=== PATIENT | male | born 1940 | race Caucasian/White ===

== ENCOUNTER → 2018-05-17 | Outpatient (CLI) | payer MEDICARE ==
[2018-05-17 14:51] LABS: Anisocytosis Slight; HCT 40.3 % (39.0-53.0); HGB 13.2 gm/dL (13.0-17.5); Hypochromasia Slight; MCH 28.8 pg (25.0-35.0); MCHC 32.8 g/dL (31.0-37.0); Platelet Count 173 k/uL (150-450); RBC 4.59 m/uL (4.30-5.90); RDW 18.3 % (11.5-15.5); WBC 8.9 k/uL (3.8-10.6)
[2018-05-17 14:55] LABS: Appearance,Urine Clear (Clear); Bilirubin,Urine Negative (Negative); Blood,Urine Negative (Negative); Color,Urine Yellow; Glucose,Urine (UA) Negative (Negative); Hyaline Casts,Urine 48 /lpf (0-2); Ketones,Urine Trace (Negative); Leukocyte Esterase,Urine Negative (Negative); Mucus,Urine Many /hpf; Nitrite,Urine Negative (Negative); PH, Urine 5.5 (5.0-8.0); Protein,Urine 1+ (Negative); RBC,Urine <1 /hpf (0-5); Specific Gravity,Urine 1.032 (1.001-1.035); Squamous Epithelial Cell,Urine 2 /hpf (0-4); WBC,Urine 1 /hpf (0-5)
[2018-05-17 15:00] LABS: INR 2.9 (<1.2); Prothrombin Time 26.1 sec (9.0-12.0)
[2018-05-17 15:03] LABS: Albumin 3.7 g/dL (3.5-5.0); Calcium 9.4 mg/dL (8.4-10.2); Potassium 4.8 mmol/L (3.5-5.1); Total Bilirubin 0.3 mg/dL (0.2-1.3); Total Protein 6.3 g/dL (6.3-8.2)
== END | disposition home or self-care (01) ==
LOC: LABPAT 12:20
PROVIDERS: ATTEND Orthopaedic Surgery
DX: Z01.812 Encounter for preprocedural laboratory examination (principal); Z79.01 Long term (current) use of anticoagulants
CPT/HCPCS: 36415; 80053; 81001; 85027; 85610; 85730; 87070

== ENCOUNTER → 2018-05-26 | Day surgery (SDC) | payer MEDICARE ==
[2018-05-13 10:22] VITALS: BMI 31.8
[2018-05-25 06:23] VITALS: BP 146/67; PULSE 64; RESP 16; TEMP 97.2
[2018-05-25 06:42] LABS: Prothrombin Time 18.4 sec (9.0-12.0)
[~2018-05-26] MED LIST: ACETAMINOPHEN TAB 500 MG TAB PO ONE; DEXAMETHASONE SOD PHOSPHATE 10 MG/ML 1 ML VIAL IV ONE; HYDROmorphone 0.5 MG/0.5 ML SYRINGE IVP PRN; LACTATED RINGERS 1,000 ML IV SCH; LIDOCAINE 1% 20 ML VIAL (10MG/ML) FOR IV START INTRADERMA ONE; MELOXICAM 7.5 MG TAB PO ONE; ONDANSETRON 4 MG/2 ML VIAL IVP ONE; ROPIVACAINE 246.25 MG, EPINEPHrine 0.5 MG, KETOROLAC 30 MG, cloNIDine HCL/PF 80 MCG, WA... MISCELLANE ONE; TRANEXAMIC ACID 1,000 MG in SODIUM CHLORIDE 0.9% 50 ML IVPB ONE; ceFAZolin IN SWFI 2 GM/20 ML SYRINGE IVP ONE
== END ==
LOC: 2ORMAIN 05-25 06:02 → UNDOADMIN 05-25 06:02 → EDSTATUS 05-25 07:30 → OR 06:02
PROVIDERS: ATTEND Orthopaedic Surgery
DX: M16.12 Unilateral primary osteoarthritis, left hip (principal); I25.10 Atherosclerotic heart disease of native coronary artery without angina pectoris; I50.9 Heart failure, unspecified; I48.91 Unspecified atrial fibrillation; Z86.718 Personal history of other venous thrombosis and embolism; Z87.891 Personal history of nicotine dependence; I72.9 Aneurysm of unspecified site; Z95.0 Presence of cardiac pacemaker
CPT/HCPCS: 85610; J1100; J2405; 86850; 86900; 86901

== ENCOUNTER 2018-05-31 07:30 | Inpatient (IN) | payer MEDICARE ==
[2018-05-26 14:48] VITALS: BMI 31.6
[~2018-05-31 07:30] MED LIST changes: -DEXAMETHASONE SOD PHOSPHATE 10 MG/ML 1 ML VIAL IV ONE; -LACTATED RINGERS 1,000 ML IV SCH; -LIDOCAINE 1% 20 ML VIAL (10MG/ML) FOR IV START INTRADERMA ONE; +LIDOCAINE 1% 20 ML VIAL (10MG/ML) FOR IV START INTRADERMA PRN; -ROPIVACAINE 246.25 MG, EPINEPHrine 0.5 MG, KETOROLAC 30 MG, cloNIDine HCL/PF 80 MCG, WA... MISCELLANE ONE
[2018-05-31] MEDS: LACTATED RINGERS 1,000 ML IV SCH (08:10)
[2018-05-31 08:27] LABS: INR 1.1 (<1.2); Prothrombin Time 10.9 sec (9.0-12.0)
[2018-05-31] MEDS ORDERED: hydrOXYzine PAMOATE 25 MG CAP PO PRN (09:17)
[2018-05-31] MEDS ORDERED: MAGNESIUM HYDROXIDE 2,400 MG/10 ML CUP PO PRN (09:17)
[2018-05-31] MEDS ORDERED: ONDANSETRON 4 MG/2 ML VIAL IVP PRN (09:17)
[2018-05-31] MEDS ORDERED: HYDROmorphone 0.5 MG/0.5 ML SYRINGE IVP PRN ×3 (09:17)
[2018-05-31] MEDS ORDERED: NALOXONE 0.4 MG/ML 1 ML VIAL IV PRN (09:17)
[2018-05-31] MEDS ORDERED: HYDROcodone/APAP 5-325MG 1 EACH TAB PO PRN (09:17)
[2018-05-31] MEDS ORDERED: DIAZEPAM 5 MG TAB PO PRN ×2 (09:17)
[2018-05-31] MEDS: ROPIVACAINE 246.25 MG, EPINEPHrine 0.5 MG, KETOROLAC 30 MG, cloNIDine HCL/PF 80 MCG, WA... MISCELLANE ONE ×10 (09:48→10:52)
[2018-05-31] MEDS ORDERED: fentaNYL (PF) 50 MCG/ML 2 ML AMP ONE (09:49)
[2018-05-31] MEDS ORDERED: diphenhydrAMINE 50 MG/ML 1 ML VIAL ONE (09:49)
[2018-05-31] MEDS ORDERED: MIDAZOLAM 2 MG/2 ML VIAL ONE (09:49)
[2018-05-31] MEDS ORDERED: ceFAZolin 3,000 MG in SODIUM CHLORIDE 0.9% IRRIGATIO 3,000 ML IRRIGATION ONE (10:25)
--- NOTE | 2018-05-31 11:09 | P.OP ---
Date of Procedure: 05/31/18 Preoperative Diagnosis: Severe osteoarthritis left hip Postoperative Diagnosis: Severe osteoarthritis left hip Procedure(s) Performed: Left total hip arthroplasty with a direct anterior approach Implants: [employer] Polarstem size 4 standard [employer]hew R3, 3 hole acetabular shell, 54 mm [employer] reflection 6.5 mm cancellus screw, 20 mm 2 [employer] R3, XLPE 20 acetabular liner [employer]hew Oxinium femoral head 36 m, +0 All components were press-fit. The articulation is Oxinium on polyethylene. Anesthesia: spinal Surgeon: Nathaniel Kelyl Row Boss Hoeing #1: Melissa Medrano Estimated Blood Loss (ml): 100 Pathology: other (Femoral head) Condition: stable Disposition: PACU Indications for Procedure: After failure of conservative treatment we discussed the surgical and nonsurgical treatment options at length. Patient wishes to proceed with a total hip arthroplasty with a direct anterior approach. Complications specific to this procedure were discussed at length, including but not limited to infection, leg length discrepancy, dislocation, and nerve injury. Patient is aware of all these complications and informed consent was obtained Operative Findings: The operative findings are consistent with severe osteoarthritis of the left hip Description of Procedure: Patient was seen and evaluated in the preoperative area, consent was reviewed, and the surgical site was marked with a skin marker. Patient was then brought to the operating room and given prophylactic antibiotics intravenously. 1 g of Tranexamic acid was also given. A spinal anesthetic was administered by the anesthesia department. The patient was then placed on the [place] table with the bony prominences well-padded. The hip area was then prepped and draped in usual sterile fashion. A universal timeout was then performed, which confirmed the patient's name, surgical site, ALLERGIES, and procedure being performed. Next the incision site was located at 1 cm distal and 1 cm lateral to the anterior superior iliac spine. The skin and subcutaneous tissues were sharply incised. Incision was carefully dissected down to the fascia overlying the tensor fascia nena muscle. This fascia was then incised in line with the incision. Next, using blunt finger dissection, the tensor fascia nena muscle was dissected off its investing fascia. The muscle was then carefully retracted laterally with a cobra retractor over the lateral neck of the femur. Next, the circumflex vessels were identified and cauterized using the AquaMantis device. The anterior hip capsule was then exposed. The capsule was then opened and an inverted T fashion. Cobra retractors were then placed intracapsularly. The proximal femur was then visualized. The femoral neck was then osteotomized appropriate level above the lesser trochanter. Small amount of traction was placed with the [place] table. A small wedge of bone was then removed from the remaining femoral head. Next, using a corkscrew femoral head was easily removed from the acetabulum. On gross visual inspection, the femoral head had complete loss of articular cartilage in multiple periarticular osteophytes. Attention was then turned to the acetabulum. the acetabulum was exposed and any remaining labrum was excised. Sequential reaming of the acetabulum was performed using fluoroscopic guidance. When the appropriate size was reached, a trial was then placed. The position and fit of the trial was checked with fluoroscopy. The trial was then removed. Then, using fluoroscopic guidance, the final implant was impacted at 20 of anteversion and 40 of abduction, and fully seated in the acetabulum. 2 screws were then placed in the acetabulum. Again fluoroscopy was used to check position of the screws. Next, the liner was then impacted, with a 20 elevated liner located in the anterior superior quadrant. Component locking was confirmed. Attention was then directed to the femur. With the aid of the [place] table, the femur was externally rotated to approximately 130, extended, and abducted under the opposite leg. A side hook was then placed under the proximal femur, and the side hook elevator was used to elevate the proximal femur. Retractors were then placed. A capsular release was performed, as well as a release of the conjoined tendon, which afforded excellent visualization of the proximal femur. Next, a box osteotome was used to lateralize the proximal femur. A baggage handling supervisor was then used to locate the femoral canal. Sequential broaching was then performed with appropriate size which afforded excellent fixation in the proximal femur. A trial was then placed with appropriate head and neck, and the hip was gently reduced with the aid of the [place] table. Fluoroscopy was then used to check position of the components, as well as to ensure equal leg lengths. The hip was then gently dislocated and the trials were then removed. Final implants were then impacted and the hip was again reduced. Final fluoroscopic x-rays confirmed that the components were in anatomic position, as well as equal leg lengths. The hip was also taken through range of motion, and found to be stable. The hip was then copiously irrigated with antibiotic solution with pulsatile lavage. The hip was then irrigated with Irrisept solution. The soft tissues were then injected with a ropivacaine solution, which consisted of 246.25 mg of ropivacaine, 0.5 mg of epinephrine, 30 mg of Toradol, 80 g of clonidine, and 48.45 mL of sterile water, for a total of 100 mL of fluid injected. A second dose of 1 g of Tranexamic acid was also given. the fascia was then closed with 2-0 strata fix suture. The subcutaneous tissue was closed with 3-0 Vicryl. The subcuticular tissue was closed with 3-0 strata fix suture. The skin was then closed with Dermabond glue and a sterile silver dressing. The patient was then transferred to the recovery room in stable condition. The operator/assistant foreman YUKO Wellington was required due to the complexity of surgery, and the need for skilled surgical services tech for positioning, draping, exposure, retraction, and closure of the wound.
--- NOTE | 2018-05-31 11:38 | XR ---
Limited left hip HISTORY: Left hip arthroplasty 2 intraoperative C-arm images document the procedure.
--- NOTE | 2018-05-31 12:14 | XR ---
EXAMINATION TYPE: XR Hip Limited LT DATE OF EXAM: 05/31/2018 COMPARISON: NONE HISTORY: 78-year-old male status post hip surgery, assess surgical alignment TECHNIQUE: AP view FINDINGS: Image shows left hip total arthroplasty. Both acetabular cup and femoral short stemmed components of the prosthesis appear well seated without periprosthetic fracture. Alignment grossly anatomic. IMPRESSION: Uncomplicated postoperative appearance left total hip arthroplasty.
[2018-05-31] MEDS: SODIUM CHLORIDE 0.9% 1,000 ML IV SCH (12:25)
--- NOTE | 2018-05-31 12:27 | FL ---
EXAMINATION TYPE: FL guidance operating room DATE OF EXAM: 05/31/2018 FLUOROSCOPY Fluoroscopy time of 35 seconds was used during left hip arthroplasty. 2 image/s document/s the noemy bowles.
[2018-05-31] MEDS: HYDROcodone/APAP 5-325MG 1 EACH TAB PO PRN (16:18)
[2018-05-31] MEDS: CARVEDILOL 12.5 MG TAB PO SCH (17:44)
[2018-05-31] MEDS: ceFAZolin IN SWFI 2 GM/20 ML SYRINGE IVP SCH (17:44)
--- NOTE | 2018-05-31 17:46 | CONS ---
CONSULTATION REASON FOR CONSULTATION: Advice regarding DVT and other medical issues, requested by Dr. Kelly. HISTORY OF PRESENT ILLNESS: This 78-year-old gentleman with a past medical history of atrial flutter, history of DVT, hyperlipidemic, myocardial infarction, rheumatoid arthritis being followed by Dr. Kuo in the outpatient setting, underwent left total hip joint arthroplasty for severe DJD by Dr. Kelly. Patient tolerated the procedure well. There is no history of any chest pain, palpitation. No history of headache, loss of consciousness, seizures. The patient also had a left arm DVT. Patient also had ejection fraction 35%, according to the family. There is no history of any fever, rigor, chills. No history of headache, loss of consciousness, seizures. PAST MEDICAL HISTORY: 1. History of atrial flutter. 2. History of DVT. 3. Hyperlipidemia. 4. Myocardial infarction. 5. Rheumatoid arthritis. History of AICD. 6. History of back pain and DJD. HOME MEDICATIONS: 1. Coumadin 3 mg at bedtime. 2. Coenzyme Q 200 mg p.o. daily. 3. Turmeric 500 mg p.o. daily. 4. Zocor 20 mg at bedtime. 5. Klor-Con 10 mEq p.o. daily. 6. Mexiletine 200 mg p.o. b.i.d. 7. Cozaar 150 mg p.o. daily. 8. Lasix 40 mg p.o. daily. 9. Coreg 25 mg p.o. b.i.d. 10.Aspirin 81 mg p.o. daily. ALLERGIES: NONE. FAMILY HISTORY: History of cancer in the family. SOCIAL HISTORY: History of occasional alcohol intake. Previous history of smoking. REVIEW OF SYSTEMS: ENT: No diminished hearing. No diminished vision. CARDIOVASCULAR SYSTEM: No angina, palpitations. RESPIRATORY SYSTEM: As mentioned earlier. GI: No nausea, vomiting. : No dysuria or retention. NERVOUS SYSTEM: No numbness, weakness. ALLERGY/IMMUNOLOGY: No asthma, hayfever. MUSCULOSKELETAL: As mentioned earlier. HEMATOLOGY/ONCOLOGY: No history of anemia. ENDOCRINE: As mentioned earlier. CONSTITUTIONAL: As mentioned earlier. DERMATOLOGY: Negative. RHEUMATOLOGY: Negative. PSYCHIATRY: As mentioned earlier. PHYSICAL EXAMINATION: Patient is alert, oriented x3. Pulse 60, blood pressure 123/63, respiration 16, temperature normal, pulse ox 100% on room air. HEENT: Conjunctivae normal. Oral mucosa moist. NECK: No jugular venous distention. No carotid bruit. No lymph node enlargement. CARDIOVASCULAR SYSTEM: S1, S2 muffled. No S3. No S4. RESPIRATORY SYSTEM: Breath sounds diminished at the bases. No rhonchi. No crackles. ABDOMEN: Soft, non-tender. No mass palpable. LEGS: Status post left hip arthroplasty. NERVOUS SYSTEM: Higher functions as mentioned earlier. Moves all 4 limbs. No focal motor or sensory deficit. LYMPHATICS: No lymph node palpable in neck, axillae or groin. SKIN: No ulcer, rash, bleeding. LABS: PT 10.9. INR 1.1. ASSESSMENT: 1. Status post left total hip joint arthroplasty. 2. Atrial flutter history. 3. History of deep venous thrombosis. 4. Hyperlipidemia. 5. History of myocardial infarction. 6. History of rheumatoid arthritis. 7. History of prostate cancer. 8. History of back pain and degenerative joint disease. 9. History of pacemaker, automated implantable cardioverter defibrillator. 10.Remote history of nicotine dependence. 11.Gait dysfunction. 12.FULL CODE. RECOMMENDATIONS AND DISCUSSION: In this 78-year-old gentleman who presented with multiple complex medical issues, we will monitor the patient closely, continue the current medications, continue with symptomatic treatment. I recommend resuming the home medications. Monitor blood pressure closely. Anticoagulation will be initiated with Coumadin. Monitor PT/INR closely. Repeat labs. I would also follow the patient closely with Orthopedic Surgery. The patient will be evaluated for possible ECF rehab. Further recommendations to follow. MMODL / IJN: [id number] /
[2018-05-31] MEDS ORDERED: WARFARIN 5 MG TAB PO ONE (18:00)
[2018-05-31] MEDS: ATORVASTATIN 10 MG TAB PO SCH (21:10)
[2018-05-31] MEDS: SENNOSIDES-DOCUSATE SODIUM 1 EACH TAB PO SCH (21:10)
[2018-05-31] MEDS: MEXILETINE 200 MG CAP PO SCH (21:10)
[2018-06-01] MEDS: SODIUM CHLORIDE 0.9% 1,000 ML IV SCH ×3 (00:19→16:33)
[2018-06-01] MEDS: ceFAZolin IN SWFI 2 GM/20 ML SYRINGE IVP SCH (00:19)
[2018-06-01] MEDS: LACTATED RINGERS 1,000 ML IV SCH (04:01)
[2018-06-01 07:37] LABS: Anisocytosis Slight; Basophils % (A) 0 %; Eosinophils # (A) 0.2 k/uL (0-0.7); Eosinophils % (A) 2 %; HCT 33.6 % (39.0-53.0); HGB 10.6 gm/dL (13.0-17.5); Hypochromasia Slight; Lymphocytes # (A) 0.6 k/uL (1.0-4.8); Lymphocytes % (A) 7 %; MCH 28.1 pg (25.0-35.0); MCHC 31.4 g/dL (31.0-37.0); MCV 89.6 fL (80.0-100.0); Mean Platelet Volume 9.6; Monocytes # (A) 0.7 k/uL (0-1.0); Monocytes % (A) 8 %; Neutrophils # (A) 7.4 k/uL (1.3-7.7); Neutrophils % (A) 81 %; Platelet Count 119 k/uL (150-450); RBC 3.75 m/uL (4.30-5.90); RDW 17.6 % (11.5-15.5); WBC 9.1 k/uL (3.8-10.6)
[2018-06-01 07:42] LABS: INR 1.1 (<1.2)
[2018-06-01 07:54] LABS: Calcium 8.4 mg/dL (8.4-10.2); Potassium 4.8 mmol/L (3.5-5.1)
[2018-06-01] MEDS: MEXILETINE 200 MG CAP PO SCH ×2 (08:04→21:16)
[2018-06-01] MEDS: POTASSIUM CHLORIDE ER 10 MEQ TAB.ER.PRT PO SCH (08:04)
[2018-06-01] MEDS: FUROSEMIDE 40 MG TAB PO SCH (08:05)
[2018-06-01] MEDS: ASPIRIN 81 MG PO SCH (08:05)
[2018-06-01] MEDS: CARVEDILOL 12.5 MG TAB PO SCH (08:05)
[2018-06-01] MEDS ORDERED: LOSARTAN 50 MG TAB PO SCH (09:00)
--- NOTE | 2018-06-01 09:35 | P.PN ---
Subjective Progress Note Date: 06/01/18 This is a 78-year-old male who is status post left total hip arthroplasty. This is postoperative day #1. Patient is seen and evaluated at bedside with Nathaniel. Patient states that his pain is well controlled. Patient denies any fever/chills, numbness, weakness, tingling, abdominal pain, shortness of breath or chest pain. Objective - Vital Signs Vital signs: Vital Signs Temp 99 F 06/01/18 07:15 Pulse 71 06/01/18 07:15 Resp 16 06/01/18 07:15 BP 142/83 06/01/18 07:15 Pulse Ox 100 06/01/18 07:15 Intake & Output 05/31/18 06/01/18 06/01/18 18:59 06:59 18:59 Intake Total 1301 647.5 Output Total 150 300 Balance 1151 347.5 Weight 90.718 kg 90.718 kg Intake: IV 801 Intake, IV Titration 647.5 Amount Sodium Chloride 0.9% 1, 647.5 000 ml @ 65 mls/hr IV . [id number] [facility] Rx#:[id number] Oral 500 Output: Urine 300 Estimated Blood Loss 150 Other: Voiding Method Urinal # Voids 1 - Exam Vital signs are stable. Patient is in no acute distress and is alert and oriented 3. Calf is soft and nontender to palpation. Dressing is clean, dry, and intact. Patient has full foot and ankle motion without pain or difficulty. Neurovascular status and circulatory status are intact. - Labs CBC & Chem 7: 06/01/18 06:44 06/01/18 06:44 Labs: Abnormal Lab Results - Last 24 Hours (Table) 06/01/18 06/01/18 Range/Units 06:44 06:44 RBC 3.75 L (4.30-5.90) m/uL Hgb 10.6 L (13.0-17.5) gm/dL Hct 33.6 L (39.0-53.0) % RDW 17.6 H (11.5-15.5) % Plt Count 119 L (150-450) k/uL Lymphocytes # 0.6 L (1.0-4.8) k/uL Sodium 135 L (137-145) mmol/L BUN 35 H (9-20) mg/dL Glucose 123 H (74-99) mg/dL Assessment and Plan (1) Primary osteoarthritis of left hip Current Visit: Yes Status: Acute Code(s): M16.12 - UNILATERAL PRIMARY OSTEOARTHRITIS, LEFT HIP SNOMED Code(s): 038594217 (2) S/P total hip arthroplasty Current Visit: Yes Status: Acute Code(s): Z96.649 - PRESENCE OF UNSPECIFIED ARTIFICIAL HIP JOINT SNOMED Code(s): 406331597746 Plan: Continue routine postop care. Continue antocoagulation. Weightbearing as tolerated with a walker Leave dressing in place for 10 days. Anticipate discharge to rehab on .
[2018-06-01] MEDS ORDERED: SODIUM CHLORIDE 0.9% 500 ML IV ONE (14:50)
--- NOTE | 2018-06-01 15:12 | XR ---
EXAMINATION TYPE: XR chest 1V portable DATE OF EXAM: 06/01/2018 Comparison: None Clinical History: 78-year-old male hypotension, postop hip surgery on 05/31/2018 Findings: Heart upper limits of normal in size. Mild elongation thoracic aorta. There is rounded retrocardiac d ensity, possible moderate-sized hiatal hernia. Mild interstitial prominence as a chronic appearance. No consolidation or pleural effusion. Left anterior chest wall AICD generator with right atrial and r ight ventricular leads. Impression: Heart upper limits of normal in size. Rounded retrocardiac density could represent a moderate-sized h ernia. Otherwise, no acute process seen.
--- NOTE | 2018-06-01 15:29 | PN ---
PROGRESS NOTE DATE OF SERVICE: 06/01/2018 This 78-year-old gentleman with a past medical history of multiple medical problems, admitted with left total hip joint arthroplasty. This morning the patient had hypotension. The patient was being bolused at 500 mL. Patient is complaining of minimal dizziness. No chest pain or palpitations. PAST MEDICAL HISTORY: Reviewed. REVIEW OF SYSTEM: CARDIAC: As mentioned earlier. RESPIRATORY: As mentioned earlier. GI: No nausea. : No dysuria. NERVOUS SYSTEM: No numbness or weakness. CURRENT MEDICATIONS: Reviewed and include: 1. [place] 5 mg q.6 p.r.n. 2. Aspirin 81 mg. 3. Lipitor 10 mg q.h.s. 4. Valium 2.5 mg. 5. Lasix 40 mg daily. 6. Dilaudid 0.125 mg daily. 7. Vistaril. 8. Lactate ringers. 9. Xalatan. 10.Narcan. 11.Zofran. 12.K-Dur. 13.Senokot. 14.Coumadin. PHYSICAL EXAM: Patient is alert, oriented x3, pulse 71, blood pressure is 92/63, respirations 16, temperature is normal, pulse ox 100% on room air. HEENT: Normal. Oral mucosa moist. Neck is no jugular venous distention. No lymph node enlargement. CARDIOVASCULAR: S1, S2, muffled. No S3, no S4. RESPIRATORY: Breath sounds diminished at the bases, no rhonchi, no crackles. ABDOMEN: Soft, nontender. LEGS: Status post surgery. NERVOUS SYSTEM: Higher functions as mentioned earlier, moves all 4 limbs, no focal deficits. LYMPHATICS: No lymph node enlargement in the neck or axillae. SKIN: No ulcer, rash or bleeding. LABS: At this time shows WBC 9.1, hemoglobin 10.6, sodium 135 and glucose 123. ASSESSMENT: 1. Status post left total hip joint arthroplasty. 2. Hypotension, possibly medication induced. 3. Atrial flutter history. 4. History of deep venous thrombosis. 5. Hyperlipidemia. 6. History of myocardial infarction. 7. History of rheumatoid arthritis. 8. History of prostate cancer. 9. History of back pain, degenerative joint disease. 10.History of pacemaker AICD. 11.Remote history of nicotine dependence. 12.Gait dysfunction. 13.FULL CODE. RECOMMENDATION: In this 78-year-old gentleman who presented with multiple medical issues, at this time I recommend hold the antihypertensive medications. Monitor blood pressure closely and remote telemetry of fluid bolus after that 75 mL normal saline. I would also recommend baseline labs including CBC, CMP, and also as well as portable chest x-ray and as well as a set of troponin, also. Cardiology consultation also recommended because of the extensive cardiac history the patient has had previously. Will closely monitor. Discussed with family at length. Further recommendations to follow. SHANTAL / BRODIEN: [id number] /
[2018-06-01 15:36] LABS: Albumin 2.6 g/dL (3.5-5.0); Calcium 8.2 mg/dL (8.4-10.2); Potassium 4.7 mmol/L (3.5-5.1); Total Bilirubin 0.3 mg/dL (0.2-1.3); Total Protein 4.8 g/dL (6.3-8.2)
[2018-06-01 15:41] LABS: Anisocytosis Slight; HCT 32.3 % (39.0-53.0); MCH 27.8 pg (25.0-35.0); MCHC 31.1 g/dL (31.0-37.0); MCV 89.4 fL (80.0-100.0); Mean Platelet Volume 10.6; Platelet Count 108 k/uL (150-450); RBC 3.61 m/uL (4.30-5.90); RDW 17.8 % (11.5-15.5)
--- NOTE | 2018-06-01 16:36 | P.CRDCN ---
History of Present Illness History of present illness: Discussed with the nurse. Apparently a blood pressure was taken and was found to be low. A consult for cardiology was called urgently. The blood pressure was repeated and was normal. Heart rate is normal. The nurse spoke to Dr. Douglas who felt that a consult was not needed. This consult is being canceled. Discussed with the nurse Past Medical History Past Medical History: Atrial Flutter, Cancer, Deep Vein Thrombosis (DVT), Hyperlipidemia, Myocardial Infarction ([place]), Rheumatoid Arthritis ([place]) Additional Past Medical History / Comment(s): prostate cancer, back pain, hx blood clot rt elbow, hiatal hernia Last Myocardial Infarction Date:: 1996 History of Any Multi-Drug Resistant Organisms: None Reported Past Surgical History: Pacemaker, Prostate Surgery Additional Past Surgical History / Comment(s): blood clot rt elbow surgically removed, pacemaker defibrillator-"[employer] model [id number] placed 2009 ", [place]. cataract surgery Past Anesthesia/Blood Transfusion Reactions: No Reported Reaction Type of Cardiac Device: AICD Device Placement Date:: 2009 Past Psychological History: No Psychological Hx Reported Smoking Status: Former smoker Past Alcohol Use History: Occasional Additional Past Alcohol Use History / Comment(s): smoked 30 years 1ppd quit 10- 15 years ago Past Drug Use History: None Reported - Past Family History Father Family Medical History: Cancer Medications and Allergies Home Medications Medication Instructions Recorded Confirmed Type Aspirin [Children's Aspirin] 81 mg PO DAILY 05/13/18 05/31/18 History Carvedilol [Coreg] 25 mg PO BID 05/13/18 05/31/18 History Furosemide [Lasix] 40 mg PO DAILY 05/13/18 05/31/18 History Losartan Potassium [Cozaar] 150 mg PO DAILY 05/13/18 05/31/18 History Mexiletine HCl 200 mg PO BID 05/13/18 05/31/18 History Potassium Chloride [Klor-Con 10] 10 meq PO DAILY 05/13/18 05/31/18 History Simvastatin [Zocor] 20 mg PO HS 05/13/18 05/31/18 History Turmeric Root Extract [Turmeric] 500 mg PO DAILY 05/13/18 05/31/18 History Ubidecarenone [Co Q-10] 200 mg PO DAILY 05/13/18 05/31/18 History Warfarin Sodium 3 mg PO HS 05/13/18 05/31/18 History Allergies Allergy/AdvReac Type Severity Reaction Status Date / Time No Known Allergies Allergy Verified 05/31/18 12:37 Physical Exam Vitals: Vital Signs Temp Pulse Pulse Resp BP Pulse Ox 06/01/18 15:15 116/68 06/01/18 14:58 90/50 06/01/18 14:30 97.7 F 68 16 76/48 97 06/01/18 07:15 99 F 71 16 142/83 100 06/01/18 00:45 98.2 F 73 16 135/61 97 06/01/18 00:00 16 05/31/18 19:49 65 16 126/73 05/31/18 17:47 60 147/67 98 Intake and Output 06/01/18 06/01/18 06/01/18 06:59 14:59 22:59 Intake Total 420 540 Output Total 125 150 Balance 295 540 -150 Intake: Intake, IV Titration 420 Amount Sodium Chloride 0.9% 1, 420 000 ml @ 65 mls/hr IV . [id number] [facility] Rx#:[id number] Oral 540 Output: Urine 125 150 Other: Voiding Method Urinal # Voids 1 1 Results 06/01/18 15:20 06/01/18 15:20 Cardiac Enzymes 06/01/18 06/01/18 Range/Units 15:20 15:20 AST 23 (17-59) U/L Troponin I 0.013 (0.000-0.034) ng/mL Coagulation 06/01/18 Range/Units 06:44 PT 11.0 (9.0-12.0) sec CBC 06/01/18 06/01/18 Range/Units 06:44 15:20 WBC 9.1 9.1 (3.8-10.6) k/uL RBC 3.75 L 3.61 L (4.30-5.90) m/uL Hgb 10.6 L 10.0 L (13.0-17.5) gm/dL Hct 33.6 L 32.3 L (39.0-53.0) % Plt Count 119 L 108 L (150-450) k/uL Comprehensive Metabolic Panel 06/01/18 06/01/18 Range/Units 06:44 15:20 Sodium 135 L 134 L (137-145) mmol/L Potassium 4.8 4.7 (3.5-5.1) mmol/L Chloride 103 105 (98-107) mmol/L Carbon Dioxide 29 25 (22-30) mmol/L BUN 35 H 37 H (9-20) mg/dL Creatinine 1.10 1.27 H (0.66-1.25) mg/dL Glucose 123 H 148 H (74-99) mg/dL Calcium 8.4 8.2 L (8.4-10.2) mg/dL AST 23 (17-59) U/L ALT 30 (21-72) U/L Alkaline Phosphatase 54 (38-126) U/L Total Protein 4.8 L (6.3-8.2) g/dL Albumin 2.6 L (3.5-5.0) g/dL Current Medications Generic Name Dose Route Start Last Admin Trade Name Freq PRN Reason Stop Dose Admin Hydrocodone Bitart/Acetaminophen 1 each 05/31/18 09:17 05/31/18 16:18 [place] 5-325 PO 1 each Q6HR PRN Administration Pain Scale 1 to 5 Hydrocodone Bitart/Acetaminophen 2 each 05/31/18 09:17 06/01/18 09:11 [place] 5-325 PO 2 each Q6HR PRN Administration Pain Scale 6 to 10 Aspirin 81 mg 06/01/18 09:00 06/01/18 08:05 Aspirin PO 81 mg DAILY SHAHID Administration Atorvastatin Calcium 10 mg 05/31/18 21:00 05/31/18 21:10 Lipitor PO 10 mg HS SHAHID Administration Diazepam 2.5 mg 05/31/18 09:17 Valium PO Q8HR PRN Mild Spasms Diazepam 5 mg 05/31/18 09:17 Valium PO Q8HR PRN Moderate to Severe Spasms Furosemide 40 mg 06/01/18 09:00 06/01/18 08:05 Lasix PO 40 mg DAILY SHAHID Administration Hydromorphone HCl 0.125 mg 05/31/18 09:17 Dilaudid IVP Q3HR PRN Pain Scale 1 to 3 Hydromorphone HCl 0.25 mg 05/31/18 09:17 Dilaudid IVP Q3HR PRN Pain Scale 4 to 6 Hydromorphone HCl 0.5 mg 05/31/18 09:17 Dilaudid IVP Q3HR PRN Pain Scale 7 to 10 Hydroxyzine Pamoate 25 mg 05/31/18 09:17 Vistaril PO Q4HR PRN Nausea, Anxiety, Pain Control Lactated Ringer's 1,000 mls @ 20 mls/hr 05/31/18 05:12 06/01/18 04:01 Lactated Ringers IV Not Given .Q24H SHAHID Sodium Chloride 1,000 mls @ 75 mls/hr 06/01/18 15:00 06/01/18 16:33 Saline 0.9% IV 75 mls/hr .[id number] SHAHID Administration Lidocaine HCl 0.1 ml 05/31/18 05:12 05/31/18 08:10 .Xylocaine 1% Inj (10mg/Ml) For Iv Start INTRADERMA 0.1 ml PER PROTOCOL PRN Administration IV Start Magnesium Hydroxide 2,400 mg 05/31/18 09:17 Milk Of Magnesia PO DAILY PRN Constipation Mexiletine HCl 200 mg 05/31/18 21:00 06/01/18 08:04 Mexitil PO 200 mg BID SHAHID Administration Miscellaneous Information 1 each 05/31/18 09:17 Coumadin Per Pharmacy MISCELLANE DIRECTED PRN anticoagulation Naloxone HCl 0.2 mg 05/31/18 09:17 Narcan IV Q2M PRN Opioid Reversal Ondansetron HCl 4 mg 05/31/18 09:17 Zofran IVP DAILY PRN Nausea And Vomiting Potassium Chloride 10 meq 06/01/18 09:00 06/01/18 08:04 K-Dur 10 PO 10 meq DAILY SHAHID Administration Senna/Docusate Sodium 2 each 05/31/18 21:00 05/31/18 21:10 Senokot-S PO 2 each HS SHAHID Administration Warfarin Sodium 5 mg 06/01/18 18:00 Coumadin PO 06/01/18 18:01 ONCE@1800 ONE Intake and Output 06/01/18 06/01/18 06/01/18 06:59 14:59 22:59 Intake Total 420 540 Output Total 125 150 Balance 295 540 -150 Intake: Intake, IV Titration 420 Amount Sodium Chloride 0.9% 1, 420 000 ml @ 65 mls/hr IV . [id number] [facility] Rx#:[id number] Oral 540 Output: Urine 125 150 Other: Voiding Method Urinal # Voids 1 1 06/01/18 15:20 06/01/18 15:20
[2018-06-01] MEDS: HYDROcodone/APAP 5-325MG 1 EACH TAB PO PRN (16:37)
[2018-06-01 16:50] LABS: Basophils # (M) 0.09 k/uL (0-0.2); Eosinophils # (M) 0.27 k/uL (0-0.7); Neutrophils % (M) 82 %; Nucleated Red Blood Cells 1 /100 WBC (0-0); Total Cells Counted 100
[2018-06-01 16:51] LABS: Lymphocytes # (M) 0.54 k/uL (1.0-4.8); Monocytes # (M) 0.72 k/uL (0-1.0); Neutrophils # (M) 7.38 k/uL (1.3-7.7)
[2018-06-01] MEDS ORDERED: WARFARIN 5 MG TAB PO ONE (18:00)
[2018-06-01] MEDS: SENNOSIDES-DOCUSATE SODIUM 1 EACH TAB PO SCH (21:16)
[2018-06-01] MEDS: ATORVASTATIN 10 MG TAB PO SCH (21:16)
[2018-06-02] MEDS: LACTATED RINGERS 1,000 ML IV SCH (04:13)
[2018-06-02 07:21] LABS: INR 1.5 (<1.2); Prothrombin Time 13.7 sec (9.0-12.0)
--- NOTE | 2018-06-02 08:09 | P.PN ---
Subjective Progress Note Date: 06/02/18 This is a 78-year-old male who is status post left total hip arthroplasty. This is postoperative day #2. Patient is seen and evaluated at bedside with Dr. Nathaniel Kelly. Patient states that his pain is well controlled today. Patient denies any fever/chills, numbness, weakness, tingling, abdominal pain, shortness of breath or chest pain. Objective - Vital Signs Vital signs: Vital Signs Temp 98.7 F 06/02/18 00:39 Pulse 80 06/02/18 00:39 Resp 16 06/02/18 00:39 BP 139/72 06/02/18 00:39 Pulse Ox 97 06/02/18 00:39 Intake & Output 06/01/18 06/02/18 06/02/18 18:59 06:59 18:59 Intake Total 540 1462.5 Output Total 150 200 Balance 390 1262.5 Intake: Intake, IV Titration 1462.5 Amount Sodium Chloride 0.9% 1, 1462.5 000 ml @ 75 mls/hr IV . [id number] [facility] Rx#:[id number] Oral 540 Output: Urine 150 200 Other: Voiding Method Toilet Urinal # Voids 1 1 - Exam Vital signs are stable. Patient is in no acute distress and is alert and oriented 3. Calf is soft and nontender to palpation. Dressing is clean, dry, and intact. Patient has full foot and ankle motion without pain or difficulty. Neurovascular status and circulatory status are intact. - Labs CBC & Chem 7: 06/01/18 15:20 06/01/18 15:20 Labs: Abnormal Lab Results - Last 24 Hours (Table) 06/01/18 06/01/18 06/02/18 Range/Units 15:20 15:20 06:44 RBC 3.61 L (4.30-5.90) m/uL Hgb 10.0 L (13.0-17.5) gm/dL Hct 32.3 L (39.0-53.0) % RDW 17.8 H (11.5-15.5) % Plt Count 108 L (150-450) k/uL Lymphocytes # (Manual) 0.54 L (1.0-4.8) k/uL Nucleated RBCs 1 H (0-0) /100 WBC PT 13.7 H (9.0-12.0) sec INR 1.5 H (<1.2) Sodium 134 L (137-145) mmol/L BUN 37 H (9-20) mg/dL Creatinine 1.27 H (0.66-1.25) mg/dL Glucose 148 H (74-99) mg/dL Calcium 8.2 L (8.4-10.2) mg/dL Total Protein 4.8 L (6.3-8.2) g/dL Albumin 2.6 L (3.5-5.0) g/dL Assessment and Plan (1) Primary osteoarthritis of left hip Current Visit: Yes Status: Acute Code(s): M16.12 - UNILATERAL PRIMARY OSTEOARTHRITIS, LEFT HIP SNOMED Code(s): 538510340 (2) S/P total hip arthroplasty Current Visit: Yes Status: Acute Code(s): Z96.649 - PRESENCE OF UNSPECIFIED ARTIFICIAL HIP JOINT SNOMED Code(s): 849097324661 Plan: Continue routine postop care. Continue antocoagulation with Coumadin. Weightbearing as tolerated with a walker. Leave dressing in place for 10 days. Anticipate discharge to rehab on .
[2018-06-02] MEDS: ASPIRIN 81 MG PO SCH (09:45)
[2018-06-02] MEDS: SODIUM CHLORIDE 0.9% 1,000 ML IV SCH (09:45)
[2018-06-02] MEDS: FUROSEMIDE 40 MG TAB PO SCH (09:45)
[2018-06-02] MEDS: POTASSIUM CHLORIDE ER 10 MEQ TAB.ER.PRT PO SCH (09:45)
[2018-06-02] MEDS: MEXILETINE 200 MG CAP PO SCH ×2 (09:45→21:37)
--- NOTE | 2018-06-02 12:06 | XR ---
EXAMINATION TYPE: XR chest 1V portable DATE OF EXAM: 06/02/2018 HISTORY: Shortness of breath. COMPARISON: 06/01/2018 TECHNIQUE: Single view of the chest is submitted. FINDINGS: Demonstrated are scattered senescent parenchymal change. There is no evidence for focal infiltrate. The heart is stable. Hilar and mediastinal structures are within normal limits. Degenerative changes are seen of the dorsal spine. IMPRESSION: 1. Chronic changes without evidence for acute pulmonary disease.
[2018-06-02] MEDS ORDERED: HYDROmorphone 1 MG/ML 1 ML SYRINGE IVP PRN ×3 (17:23)
[2018-06-02] MEDS ORDERED: WARFARIN 5 MG TAB PO ONE (18:00)
[2018-06-02] MEDS: HYDROcodone/APAP 5-325MG 1 EACH TAB PO PRN (18:04)
[2018-06-02] MEDS: SENNOSIDES-DOCUSATE SODIUM 1 EACH TAB PO SCH (21:37)
[2018-06-02] MEDS: ATORVASTATIN 10 MG TAB PO SCH (21:37)
[2018-06-03] MEDS: LACTATED RINGERS 1,000 ML IV SCH (02:28)
[2018-06-03 03:19] VITALS: RESP 16
[2018-06-03] MEDS: HYDROcodone/APAP 5-325MG 1 EACH TAB PO PRN (04:07)
[2018-06-03 07:13] LABS: Anisocytosis Slight; Basophils % (A) 0 %; Eosinophils # (A) 0.2 k/uL (0-0.7); Eosinophils % (A) 2 %; HGB 9.3 gm/dL (13.0-17.5); Hypochromasia Slight; Lymphocytes # (A) 0.8 k/uL (1.0-4.8); Lymphocytes % (A) 9 %; MCH 27.7 pg (25.0-35.0); MCV 89.3 fL (80.0-100.0); Mean Platelet Volume 9.6; Monocytes # (A) 0.6 k/uL (0-1.0); Monocytes % (A) 7 %; Neutrophils # (A) 6.9 k/uL (1.3-7.7); Neutrophils % (A) 80 %; Platelet Count 128 k/uL (150-450); RBC 3.36 m/uL (4.30-5.90); RDW 17.6 % (11.5-15.5); WBC 8.7 k/uL (3.8-10.6)
[2018-06-03 07:34] LABS: INR 1.6 (<1.2); Prothrombin Time 14.8 sec (9.0-12.0)
[2018-06-03 08:00] LABS: Anion Gap 4 mmol/L; Blood Urea Nitrogen 25 mg/dL (9-20); Calcium 8.1 mg/dL (8.4-10.2); Carbon Dioxide 26 mmol/L (22-30); Chloride 105 mmol/L (98-107); Glucose 119 mg/dL (74-99); Magnesium 1.8 mg/dL (1.6-2.3); Potassium 4.5 mmol/L (3.5-5.1); Sodium 135 mmol/L (137-145)
[2018-06-03 08:07] VITALS: TEMP 98.3
[2018-06-03] MEDS ORDERED: ACETAMINOPHEN TAB 325 MG TAB PO PRN (08:48)
[2018-06-03] MEDS ORDERED: traMADol 50 MG TAB PO PRN ×2 (08:49)
--- NOTE | 2018-06-03 08:56 | CT ---
EXAMINATION TYPE: CT brain wo con DATE OF EXAM: 06/03/2018 COMPARISON: None HISTORY: 78-year-old male episodes of confusion. TECHNIQUE: Examination was done in axial plane without intravenous contrast. Coronal and sagittal r econstructions performed. CT DLP: 1278 mGycm Automated exposure control for dose reduction was used. FINDINGS: There is no evidence of acute intracranial hemorrhage, acute ischemic changes, mass, mass-effect, or extra-axial fluid collection. There is no effacement of cerebral sulci or basal subarachnoid cister ns. There is mild hydrocephalus with evidence ratio calculated 0.40. There is no midline shift. Gra y-white matter distinction is preserved. Paranasal sinuses and mastoid air cells well pneumatized. Globes appears slightly proptotic. No retro bulbar, intraorbital mass. IMPRESSION: 1. Mild hydrocephalus possibly secondary to ex vacuo enlargement from central cerebral atrophy. Corre late to exclude a component of NPH. 2. Otherwise, no acute intracranial abnormality seen. 3. Globes appear proptotic. Clinically correlate.
--- NOTE | 2018-06-03 08:59 | P.DS ---
Providers Date of admission: 05/31/18 07:30 Expected date of discharge: 06/03/18 Attending physician: Nathaniel Kelly Consults: 05/31/18 09:17 Consult Physician Routine Consulting Provider: Santana Kuo Consult Reason/Comments: medical management and anticoagulation Do you want consulting provider notified?: Yes 05/31/18 12:07 Consult Physician Routine Consulting Provider: Diane Douglas Consult Reason/Comments: medical management Do you want consulting provider notified?: Yes 06/01/18 14:50 Consult Physician Routine Consulting Provider: Silverio Briscoe Consult Reason/Comments: hypotension Do you want consulting provider notified?: Yes Primary care physician: Santana Kuo - Discharge Diagnosis(es) (1) Primary osteoarthritis of left hip Current Visit: Yes Status: Acute (2) S/P total hip arthroplasty Current Visit: Yes Status: Acute Hospital Course: This is a 78-year-old male with known history of degenerative arthritis of the left hip. The patient presents for evaluation. After discussion and consideration patient elects to proceed with total hip arthroplasty. The patient is seen preoperatively by Dr. Kelly and medically cleared for surgery by their primary care physician. Patient is admitted to [facility] on 05/31/2018 for total hip arthroplasty. The procedures performed without complication or sequelae. The patient is doing well postoperatively. Labs and vital signs are stable on day of discharge. On day of discharge patient's hip incision is healing well. There is minimal erythema. There is no drainage noted at this time. There is minimal soft tissue swelling to the hip and thigh. Patient has full foot and ankle motion without difficulty or pain. Neurovascular status to the left lower extremity is intact. Patient is discharged to rehab in good condition. Please see med rec for accurate list of home medications. Plan - Discharge Summary Discharge Rx Participant: Yes New Discharge Prescriptions: New Acetaminophen Tab [Tylenol Tab] 1 - 2 tab PO Q8H PRN #90 tablet PRN Reason: Pain Sennosides [Senokot] 1 tab PO BID #60 tablet traMADol HCl [Ultram] 50 mg PO Q6H PRN #28 tab PRN Reason: Pain No Action Warfarin Sodium 3 mg PO HS Losartan Potassium [Cozaar] 150 mg PO DAILY Simvastatin [Zocor] 20 mg PO HS Potassium Chloride [Klor-Con 10] 10 meq PO DAILY Furosemide [Lasix] 40 mg PO DAILY Carvedilol [Coreg] 25 mg PO BID Mexiletine HCl 200 mg PO BID Ubidecarenone [Co Q-10] 200 mg PO DAILY Aspirin [Children's Aspirin] 81 mg PO DAILY Turmeric Root Extract [Turmeric] 500 mg PO DAILY Discharge Medication List Aspirin [Children's Aspirin] 81 mg PO DAILY 05/13/18 [History] Carvedilol [Coreg] 25 mg PO BID 05/13/18 [History] Furosemide [Lasix] 40 mg PO DAILY 05/13/18 [History] Losartan Potassium [Cozaar] 150 mg PO DAILY 05/13/18 [History] Mexiletine HCl 200 mg PO BID 05/13/18 [History] Potassium Chloride [Klor-Con 10] 10 meq PO DAILY 05/13/18 [History] Simvastatin [Zocor] 20 mg PO HS 05/13/18 [History] Turmeric Root Extract [Turmeric] 500 mg PO DAILY 05/13/18 [History] Ubidecarenone [Co Q-10] 200 mg PO DAILY 05/13/18 [History] Warfarin Sodium 3 mg PO HS 05/13/18 [History] Acetaminophen Tab [Tylenol Tab] 1 - 2 tab PO Q8H PRN #90 tablet 06/03/18 [Rx] Sennosides [Senokot] 1 tab PO BID #60 tablet 06/03/18 [Rx] traMADol HCl [Ultram] 50 mg PO Q6H PRN #28 tab 06/03/18 [Rx] Follow up Appointment(s)/Referral(s): Nathaniel Kelly DO [Doctor of Osteopathic Medicine] - 06/14/18 9:25 am Activity/Diet/Wound Care/Special Instructions: [facility] for rehab on discharge. Weightbearing as tolerated with walker. Coumadin dosing per internal medicine. Leave dressing intact. Dressing may be removed by home care nurse in 10 days. May shower with dressing on. Follow-up with [facility] in 2 weeks, please call with any questions or concerns [phone] Discharge Disposition: TRANSFER TO SNF/ECF
[2018-06-03] MEDS: ASPIRIN 81 MG PO SCH (09:22)
[2018-06-03] MEDS: POTASSIUM CHLORIDE ER 10 MEQ TAB.ER.PRT PO SCH (09:22)
[2018-06-03] MEDS: MEXILETINE 200 MG CAP PO SCH (09:22)
[2018-06-03] MEDS: FUROSEMIDE 40 MG TAB PO SCH (09:22)
[2018-06-03 09:35] VITALS: BP 108/70; PULSE 101
[2018-06-03] MEDS ORDERED: WARFARIN 7.5 MG TAB PO ONE (18:00)
--- NOTE | 2018-06-04 20:32 | P.PN ---
Subjective Progress Note Date: 06/02/18 Progress note being dictated for Dr. Douglas. Interval history: This a 78-year-old gentleman status post left hip arthroplasty. Yesterday he presented with hypotension and mild dizziness in the morning, received a fluid bolus, symptoms subsided.Up with physical therapy , tolerated exertion well with no lightheadedness dizziness or focal deficits. Tolerating diet with no nausea or vomiting. Passing flatus, no bowel movement. Tachycardic earlier this morning, currently 101, systolic blood pressures in the low 100s. Denies chest pain, palpitations or shortness of breath. Chest x- ray reporting no acute pulmonary disease. INR 1.6. Objective - Vital Signs Vital signs: Vital Signs Temp 98.7 F 06/02/18 00:39 Pulse 80 06/02/18 00:39 Resp 16 06/02/18 00:39 BP 139/72 06/02/18 00:39 Pulse Ox 97 06/02/18 00:39 Intake & Output 06/01/18 06/02/18 06/02/18 18:59 06:59 18:59 Intake Total 540 1462.5 Output Total 150 200 Balance 390 1262.5 Intake: Intake, IV Titration 1462.5 Amount Sodium Chloride 0.9% 1, 1462.5 000 ml @ 75 mls/hr IV . [id number] [facility] Rx#:[id number] Oral 540 Output: Urine 150 200 Other: Voiding Method Toilet Urinal # Voids 1 1 - Exam PHYSICAL EXAM: VITAL SIGNS: As above GENERAL: Sitting up in chair, no acute distress HEENT: Conjunctivae normal. eyes normal. Oral mucosa moist. NECK: No JVD. No thyroid enlargement. No LNs CARDIOVASCULAR: S1, S2 muffled. No murmur RESPIRATION: Breath sounds diminished in the bases. No rhonchi or crackles. No bronchial breathing. ABDOMEN: Soft, nontender . No guarding. no masses palpable.Bowel sounds heard. LEGS: Status post surgery PSYCHIATRY: Alert and oriented -3, mood and affect normal. NERVOUS SYSTEM: Cranial N 2-12 grossly normal. Moves all 4 limbs. No focal deficits. No sensory deficit. Skin: no ulcer no rash - Labs CBC & Chem 7: 06/03/18 06:40 06/03/18 06:40 Labs: Abnormal Lab Results - Last 24 Hours (Table) 06/01/18 06/01/18 06/02/18 Range/Units 15:20 15:20 06:44 RBC 3.61 L (4.30-5.90) m/uL Hgb 10.0 L (13.0-17.5) gm/dL Hct 32.3 L (39.0-53.0) % RDW 17.8 H (11.5-15.5) % Plt Count 108 L (150-450) k/uL Lymphocytes # (Manual) 0.54 L (1.0-4.8) k/uL Nucleated RBCs 1 H (0-0) /100 WBC PT 13.7 H (9.0-12.0) sec INR 1.5 H (<1.2) Sodium 134 L (137-145) mmol/L BUN 37 H (9-20) mg/dL Creatinine 1.27 H (0.66-1.25) mg/dL Glucose 148 H (74-99) mg/dL Calcium 8.2 L (8.4-10.2) mg/dL Total Protein 4.8 L (6.3-8.2) g/dL Albumin 2.6 L (3.5-5.0) g/dL Assessment and Plan Assessment: 1. Status post left total hip joint arthroplasty 2. Hypotension, possibly medication induced, resolved status post fluid bolus 3. Atrial flutter history 4. History of DVT 5. CAD with history of [place], pacemaker/AICD 6. Rheumatoid arthritis Plan: Continue on current medication regime ,monitoring and symptomatic treatment. Aggressive pulmonary toileting with incentive spirometer reinforced. Gentle IV fluid hydration. PT/OT. Anticoagulated on Coumadin with Daily PT INR. Pain management as per orthopedic surgery. Further recommendations to follow. The impression and plan of care has been dictated as directed. : I performed a history and examination of this patient, discussed the same with the dictator. I agree with the dictator's note ,documented as a scribe. Any additional findings or plans will be noted.
== END 2018-06-03 14:15 | DRG 470 ==
LOC: 2ORMAIN 07:30 → 3SUR 11:13
PROVIDERS: ADMIT Orthopaedic Surgery; ATTEND Orthopaedic Surgery
PROC: 0SRB06A Replacement of Left Hip Joint with Oxidized Zirconium on Polyethylene Synthetic Substitute, Uncemented, Open Approach (ICD-10-PCS; principal; 2018-05-31 09:20)
DX: M16.12 Unilateral primary osteoarthritis, left hip (principal); E78.5 Hyperlipidemia, unspecified; I25.2 Old myocardial infarction; I95.9 Hypotension, unspecified; M06.9 Rheumatoid arthritis, unspecified; I10 Essential (primary) hypertension; K44.9 Diaphragmatic hernia without obstruction or gangrene; M47.9 Spondylosis, unspecified; R26.9 Unspecified abnormalities of gait and mobility; T50.905A Adverse effect of unspecified drugs, medicaments and biological substances, initial encounter; Z79.01 Long term (current) use of anticoagulants; Z79.82 Long term (current) use of aspirin; Z79.899 Other long term (current) drug therapy; Z86.79 Personal history of other diseases of the circulatory system; Z85.46 Personal history of malignant neoplasm of prostate; Z86.718 Personal history of other venous thrombosis and embolism; Z87.891 Personal history of nicotine dependence; Z95.810 Presence of automatic (implantable) cardiac defibrillator; Z80.9 Family history of malignant neoplasm, unspecified; Y92.239 Unspecified place in hospital as the place of occurrence of the external cause
CPT/HCPCS: 70450; 71045; 73501; 80048; 80053; 83735; 84484; 85025; 85610; 86850; 86900; 86901; 88300; 93005

== ENCOUNTER → 2018-09-27 | Outpatient (CLI) | payer MEDICARE ==
[2018-09-27 14:56] LABS: HCT 37.9 % (39.0-53.0); HGB 12.1 gm/dL (13.0-17.5); Hypochromasia Slight; MCH 30.4 pg (25.0-35.0); MCHC 31.9 g/dL (31.0-37.0); MCV 95.4 fL (80.0-100.0); Mean Platelet Volume 10.4; Platelet Count 174 k/uL (150-450); RBC 3.97 m/uL (4.30-5.90); RDW 14.6 % (11.5-15.5); WBC 7.5 k/uL (3.8-10.6)
[2018-09-27 15:03] LABS: Appearance,Urine Clear (Clear); Bilirubin,Urine Negative (Negative); Blood,Urine Negative (Negative); Color,Urine Yellow; Glucose,Urine (UA) Negative (Negative); Ketones,Urine Negative (Negative); Leukocyte Esterase,Urine Negative (Negative); Nitrite,Urine Negative (Negative); PH, Urine 5.5 (5.0-8.0); Protein,Urine Trace (Negative); Specific Gravity,Urine 1.023 (1.001-1.035)
[2018-09-27 15:04] LABS: INR 3.6 (<1.2); Prothrombin Time 32.2 sec (9.0-12.0)
[2018-09-27 15:06] LABS: Albumin 3.6 g/dL (3.5-5.0); Calcium 9.2 mg/dL (8.4-10.2); Potassium 4.8 mmol/L (3.5-5.1); Total Bilirubin 0.3 mg/dL (0.2-1.3); Total Protein 6.2 g/dL (6.3-8.2)
[2018-09-29 07:35] LABS: Hemoglobin A1C 5.3 % (4.0-6.0)
== END ==
LOC: LABPAT 13:59
PROVIDERS: ATTEND Orthopaedic Surgery
DX: Z01.812 Encounter for preprocedural laboratory examination (principal); Z51.81 Encounter for therapeutic drug level monitoring; Z79.01 Long term (current) use of anticoagulants; R73.9 Hyperglycemia, unspecified
CPT/HCPCS: 80053; 81003; 83036; 85027; 85610; 85730; 86850; 86900; 86901; 87070

== ENCOUNTER 2018-10-05 09:24 | Inpatient (IN) | payer MEDICARE ==
[2018-09-28 10:52] VITALS: BMI 31.8
[~2018-10-05 09:24] MED LIST changes: -ACETAMINOPHEN TAB 500 MG TAB PO ONE; -MELOXICAM 7.5 MG TAB PO ONE; +MIDAZOLAM 2 MG/2 ML VIAL IV PRN; -ONDANSETRON 4 MG/2 ML VIAL IVP ONE; +SCOPOLAMINE 1.5MG/72HR PATCH TRANSDERM ONE
[2018-10-05] MEDS: MELOXICAM 7.5 MG TAB PO ONE ×2 (10:01→18:45)
[2018-10-05] MEDS: ACETAMINOPHEN TAB 500 MG TAB PO ONE ×2 (10:01→18:45)
[2018-10-05] MEDS: LACTATED RINGERS 1,000 ML IV SCH ×2 (10:09→10:51)
[2018-10-05] MEDS: DEXAMETHASONE SOD PHOSPHATE 10 MG/ML 1 ML VIAL IV ONE ×2 (10:11→18:46)
[2018-10-05] MEDS: ONDANSETRON 4 MG/2 ML VIAL IVP ONE ×2 (10:12→18:46)
[2018-10-05 10:37] LABS: INR 1.2 (<1.2); Prothrombin Time 11.1 sec (9.0-12.0)
[2018-10-05] MEDS: ROPIVACAINE 246.25 MG, EPINEPHrine 0.5 MG, KETOROLAC 30 MG, cloNIDine HCL/PF 80 MCG, WA... MISCELLANE ONE ×10 (11:22→12:15)
[2018-10-05] MEDS ORDERED: ceFAZolin 3,000 MG in SODIUM CHLORIDE 0.9% IRRIGATIO 3,000 ML IRRIGATION ONE (11:22)
[2018-10-05] MEDS ORDERED: LACTATED RINGERS 1,000 ML IV ONE (12:16)
--- NOTE | 2018-10-05 12:39 | XR ---
EXAMINATION TYPE: XR Hip Limited RT DATE OF EXAM: 10/05/2018 CLINICAL HISTORY: Right hip arthroplasty. Fluoroscopic documentation. TECHNIQUE: Fluoroscopy. COMPARISON: None. FINDINGS/IMPRESSION: Fluoroscopic guidance was provided during procedure performed by Dr. Kelyl. A total of 1 minute and 8 seconds of fluoroscopic time was utilized during the procedure and 2 spot i mages was acquired during a right hip arthroplasty.
[2018-10-05] MEDS ORDERED: NALOXONE 0.4 MG/ML 1 ML VIAL IV PRN (13:07)
[2018-10-05] MEDS ORDERED: DIAZEPAM 5 MG TAB PO PRN (13:07)
[2018-10-05] MEDS ORDERED: traMADol 50 MG TAB PO PRN (13:07)
[2018-10-05] MEDS ORDERED: HYDROmorphone 1 MG/ML 1 ML SYRINGE IVP PRN ×3 (13:07)
[2018-10-05] MEDS ORDERED: ONDANSETRON 4 MG/2 ML VIAL IVP PRN (13:07)
[2018-10-05] MEDS ORDERED: MAGNESIUM HYDROXIDE 2,400 MG/10 ML CUP PO PRN (13:07)
--- NOTE | 2018-10-05 14:02 | XR ---
EXAMINATION TYPE: XR Hip Limited RT, FL guidance operating room DATE OF EXAM: 10/05/2018 CLINICAL HISTORY: Right hip arthroplasty. Right hip pain TECHNIQUE: Fluoroscopy. COMPARISON: None. FINDINGS: Fluoroscopic guidance was provided during procedure performed by Dr. Kelly. A total of 1 minute and 8 seconds of fluoroscopic time was utilized during the procedure and 2 spot images was a cquired. Metallic hardware from right hip arthroplasty is seen and appears satisfactory in alignment and posit ion. There is evidence of recent surgery with subcutaneous gas noted laterally. IMPRESSION: Metallic hardware from right hip arthroplasty is satisfactory in position.
--- NOTE | 2018-10-05 16:10 | P.OP ---
Date of Procedure: 10/05/18 Preoperative Diagnosis: Severe osteoarthritis right hip Postoperative Diagnosis: Severe osteoarthritis right hip Procedure(s) Performed: Right total hip arthroplasty with a direct anterior approach Implants: [employer] Polarstem size 5 standard [employer] R3, 3 hole acetabular shell, 54 mm [employer] reflection 6.5 mm cancellus screw, 20 mm 2 [employer] R3, XLPE 20 acetabular liner [employer] Oxinium femoral head 36 m, +4 All components were press-fit. The articulation is Oxinium on polyethylene. Anesthesia: spinal Surgeon: Nathaniel Kelly Music Engineer #1: Melissa Medrano Estimated Blood Loss (ml): 50 Pathology: other (Femoral head) Condition: stable Disposition: PACU Indications for Procedure: After failure of conservative treatment we discussed the surgical and nonsurgical treatment options at length. Patient wishes to proceed with a total hip arthroplasty with a direct anterior approach. Complications specific to this procedure were discussed at length, including but not limited to infection, leg length discrepancy, dislocation, and nerve injury. Patient is aware of all these complications and informed consent was obtained Operative Findings: The operative findings are consistent with severe osteoarthritis of the right hip Description of Procedure: Patient was seen and evaluated in the preoperative area, consent was reviewed, and the surgical site was marked with a skin marker. Patient was then brought to the operating room and given prophylactic antibiotics intravenously. 1 g of Tranexamic acid was also given. A spinal anesthetic was administered by the anesthesia department. The patient was then placed on the Starlight table with the bony prominences well-padded. The hip area was then prepped and draped in usual sterile fashion. A universal timeout was then performed, which confirmed the patient's name, surgical site, ALLERGIES, and procedure being performed. Next the incision site was located at 1 cm distal and 1 cm lateral to the anterior superior iliac spine. The skin and subcutaneous tissues were sharply incised. Incision was carefully dissected down to the fascia overlying the tensor fascia nena muscle. This fascia was then incised in line with the incision. Next, using blunt finger dissection, the tensor fascia nena muscle was dissected off its investing fascia. The muscle was then carefully retracted laterally with a cobra retractor over the lateral neck of the femur. Next, the circumflex vessels were identified and cauterized using the AquaMantis device. The anterior hip capsule was then exposed. The capsule was then opened and an inverted T fashion. Cobra retractors were then placed intracapsularly. The proximal femur was then visualized. The femoral neck was then osteotomized appropriate level above the lesser trochanter. Small amount of traction was placed with the Starlight table. A small wedge of bone was then removed from the remaining femoral head. Next, using a corkscrew femoral head was easily removed from the acetabulum. On gross visual inspection, the femoral head had complete loss of articular cartilage in multiple periarticular osteophytes. Attention was then turned to the acetabulum. the acetabulum was exposed and any remaining labrum was excised. Sequential reaming of the acetabulum was performed using fluoroscopic guidance. When the appropriate size was reached, a trial was then placed. The position and fit of the trial was checked with fluoroscopy. The trial was then removed. Then, using fluoroscopic guidance, the final implant was impacted at 20 of anteversion and 40 of abduction, and fully seated in the acetabulum. 2 screws were then placed in the acetabulum. Again fluoroscopy was used to check position of the screws. Next, the liner was then impacted, with a 20 elevated liner located in the anterior superior quadrant. Component locking was confirmed. Attention was then directed to the femur. With the aid of the Starlight table, the femur was externally rotated to approximately 130, extended, and abducted under the opposite leg. A side hook was then placed under the proximal femur, and the side hook elevator was used to elevate the proximal femur. Retractors were then placed. A capsular release was performed, as well as a release of the conjoined tendon, which afforded excellent visualization of the proximal femur. Next, a box osteotome was used to lateralize the proximal femur. A outside cutter hand was then used to locate the femoral canal. Sequential broaching was then performed with appropriate size which afforded excellent fixation in the proximal femur. A trial was then placed with appropriate head and neck, and the hip was gently reduced with the aid of the Starlight table. Fluoroscopy was then used to check position of the components, as well as to ensure equal leg lengths. The hip was then gently dislocated and the trials were then removed. Final implants were then impacted and the hip was again reduced. Final fluoroscopic x-rays confirmed that the components were in anatomic position, as well as equal leg lengths. The hip was also taken through range of motion, and found to be stable. The hip was then copiously irrigated with antibiotic solution with pulsatile lavage. The hip was then irrigated with Irrisept solution. The soft tissues were then injected with a ropivacaine solution, which consisted of 246.25 mg of ropivacaine, 0.5 mg of epinephrine, 30 mg of Toradol, 80 g of clonidine, and 48.45 mL of sterile water, for a total of 100 mL of fluid injected. A second dose of 1 g of Tranexamic acid was also given. the fascia was then closed with 2-0 strata fix suture. The subcutaneous tissue was closed with 3-0 Vicryl. The subcuticular tissue was closed with 3-0 strata fix suture. The skin was then closed with Dermabond glue and a sterile silver dressing. The patient was then transferred to the recovery room in stable condition. The child welfare assistant YUKO Wellington was required due to the complexity of surgery, and the need for skilled surgical aide for positioning, draping, exposure, retraction, and closure of the wound.
[2018-10-05] MEDS ORDERED: WARFARIN 5 MG TAB PO ONE (18:00)
--- NOTE | 2018-10-05 18:07 | P.CONS ---
History of Present Illness - Reason for Consult Consult date: 10/05/18 Afib - History of Present Illness The patient is a 78 yo M with a PMH of CAD s/p MD x 1, ?CHF s/p AICD, cardiac aneurysm, prostate ca s/p resection, and Afib (on Coumadin) was admitted for planed R total hip arthroplasty. The patient underwent the procedure uneventfully earlier today and notes that he is doing well. Patient was seen with and daughters at the bedside. He c/o mild R hip pain post-operatively but was in good spirits and denied any other active complaints including chest pain, SOB, nausea, vomiting, diarrhea, dizziness, headache, visual changes, dysuria, or constipation. Review of Systems Pertinent positives and negatives as discussed in HPI, a complete review of systems was performed and all other systems are negative. Past Medical History Past Medical History: Atrial Flutter, Cancer, Deep Vein Thrombosis (DVT), Hyperlipidemia, Myocardial Infarction (MD), Rheumatoid Arthritis (RA) Additional Past Medical History / Comment(s): prostate cancer, back pain, hx blood clot rt elbow, hiatal hernia Last Myocardial Infarction Date:: 1996 History of Any Multi-Drug Resistant Organisms: None Reported Past Surgical History: Pacemaker, Prostate Surgery Additional Past Surgical History / Comment(s): blood clot rt elbow surgically removed, pacemaker defibrillator-"[employer] model [id number] placed 2009 ", dust[place]. cataract surgery Past Anesthesia/Blood Transfusion Reactions: No Reported Reaction Type of Cardiac Device: AICD Device Placement Date:: 2009 Smoking Status: Former smoker - Past Family History Father Family Medical History: Cancer Medications and Allergies Home Medications Medication Instructions Recorded Confirmed Type Aspirin [Children's Aspirin] 81 mg PO DAILY 05/13/18 10/05/18 History Carvedilol [Coreg] 12.5 mg PO BID 05/13/18 10/05/18 History Furosemide [Lasix] 20 - 40 mg PO DAILY 05/13/18 10/05/18 History Mexiletine HCl 200 mg PO BID 05/13/18 10/05/18 History Potassium Chloride [Klor-Con 10] 10 meq PO DAILY 05/13/18 10/05/18 History Simvastatin [Zocor] 20 mg PO HS 05/13/18 10/05/18 History Turmeric Root Extract [Turmeric] 500 mg PO DAILY 05/13/18 10/05/18 History Ubidecarenone [Co Q-10] 200 mg PO DAILY 05/13/18 10/05/18 History Warfarin Sodium 3 mg PO HS 05/13/18 10/05/18 History Acetaminophen Tab [Tylenol Tab] 1 - 2 tab PO Q8H PRN #90 tablet 06/03/18 Rx Losartan Potassium 75 mg PO DAILY 10/05/18 10/05/18 History Allergies Allergy/AdvReac Type Severity Reaction Status Date / Time No Known Allergies Allergy Verified 10/05/18 15:43 Physical Exam Vitals: Vital Signs Temp Pulse Pulse Resp BP BP Pulse Ox 10/05/18 15:30 60 16 95/53 100 10/05/18 15:15 60 16 90/54 98 10/05/18 15:00 60 16 89/52 97 10/05/18 14:45 60 16 86/50 100 10/05/18 14:30 60 16 86/51 99 10/05/18 14:15 60 16 83/53 98 10/05/18 14:00 60 16 88/52 99 10/05/18 13:45 60 16 94/51 96 10/05/18 13:28 60 16 104/56 100 10/05/18 13:12 60 16 96/57 100 10/05/18 12:56 59 L 16 109/55 100 10/05/18 12:41 96.9 F L 60 14 114/55 100 10/05/18 09:52 97.0 F L 68 18 159/77 99 Intake and Output 10/05/18 10/05/18 10/05/18 06:59 14:59 22:59 Intake Total 1001 150 Output Total 50 Balance 951 150 Intake: IV 1001 150 Output: Estimated Blood Loss 50 General: Non-toxic, in no acute distress, appears stated age, obese HEENT: NC/AT, anicteric sclerae, moist conjunctiva, no lid-lag, PERRLA Cardiovascular: S1/S2 wnl, no murmurs, rubs, or gallops Lungs: Clear to auscultation, normal respiratory effort, no accessory muscle use Abdominal: Soft, nontender, non-distended, no guarding, rebound, or rigidity Skin: Warm, dry Extremities: No edema or contractures, R hip anterior dressing, clean Psychiatric: Alert and oriented to person, place and time, appropriate affect, Intact judgment Neuro: CN II-XII grossly intact, Strength 5/5 in all extremities except RLE due to pain, Speech intact, Sensation to light touch grossly intact throughout Results Labs: Abnormal Lab Results - Last 24 Hours (Table) 10/05/18 Range/Units 10:00 INR 1.2 H (<1.2) Assessment and Plan Plan: Post-operative pain s/p R hip arthroplasty - Patient notes he previously had hallucinations w/ Wright - Agree w/ Dilaudid prn - Bowel regimen - OT/PT - As per Orthopedic service CAD, ?CHF - Will restart Aspirin 81 mg qd, Zocor 20 mg qhs. Will hold off on Losartan and Coreg in light of borderline BP. Afib - C/w Coumadin 5 mg po tonight and monitor INR. Patient takes 3 mg po qhs DVT//GI proph - Coumadin - No indication for GI proph
[2018-10-05] MEDS: SODIUM CHLORIDE 0.9% 1,000 ML IV SCH (19:30)
[2018-10-05] MEDS ORDERED: SENNOSIDES-DOCUSATE SODIUM 1 EACH TAB PO SCH (21:00)
[2018-10-05] MEDS ORDERED: NON-FORMULARY DRUG (Carvedilol [Coreg] 12.5 MG) PO SCH (21:00)
[2018-10-05] MEDS ORDERED: ATORVASTATIN 10 MG TAB PO SCH (21:00)
[2018-10-05] MEDS ORDERED: SODIUM CHLORIDE 0.9% 1,000 ML IV ONE ×2 (21:25→21:38)
[2018-10-05] MEDS: ceFAZolin IN SWFI 2 GM/20 ML SYRINGE IVP SCH (22:15)
[2018-10-06] MEDS: ceFAZolin IN SWFI 2 GM/20 ML SYRINGE IVP SCH (03:01)
[2018-10-06] MEDS: SODIUM CHLORIDE 0.9% 1,000 ML IV SCH (04:20)
[2018-10-06] MEDS: LACTATED RINGERS 1,000 ML IV SCH (05:54)
[2018-10-06 08:01] VITALS: RESP 16
[2018-10-06 08:02] LABS: INR 1.3 (<1.2); Prothrombin Time 12.3 sec (9.0-12.0)
[2018-10-06 08:05] LABS: Basophils % (A) 0 %; Eosinophils % (A) 0 %; HCT 25.5 % (39.0-53.0); HGB 8.3 gm/dL (13.0-17.5); Hypochromasia Slight; Lymphocytes # (A) 0.7 k/uL (1.0-4.8); Lymphocytes % (A) 6 %; MCH 31.4 pg (25.0-35.0); MCHC 32.4 g/dL (31.0-37.0); MCV 96.9 fL (80.0-100.0); Mean Platelet Volume 9.9; Monocytes # (A) 1.3 k/uL (0-1.0); Monocytes % (A) 10 %; Neutrophils # (A) 10.6 k/uL (1.3-7.7); Neutrophils % (A) 82 %; Platelet Count 150 k/uL (150-450); RBC 2.63 m/uL (4.30-5.90); RDW 14.4 % (11.5-15.5)
--- NOTE | 2018-10-06 08:42 | P.DS ---
Providers Date of admission: 10/05/18 09:24 Expected date of discharge: 10/06/18 Attending physician: Nathaniel Kelly Consults: 10/05/18 13:07 Consult Physician Routine Consulting Provider: Santana Kuo Consult Reason/Comments: medical management and anticoagulation Do you want consulting provider notified?: Yes 10/05/18 15:35 Consult Physician Routine Consulting Provider: James Maddox Consult Reason/Comments: Medical management Do you want consulting provider notified?: Yes Primary care physician: Santana Kuo - Discharge Diagnosis(es) (1) Primary osteoarthritis of right hip Current Visit: Yes Status: Acute (2) S/P total hip arthroplasty Current Visit: No Status: Acute Hospital Course: This is a 78-year-old male with known history of degenerative arthritis of the right hip. The patient presents for evaluation. After discussion and consideration patient elects to proceed with total hip arthroplasty. The patient is seen preoperatively by Dr. Kelly and medically cleared for surgery by their primary care physician. Patient is admitted to [facility] on 10/05/2018 for total hip arthroplasty. The procedures performed without complication or sequelae. The patient is doing well postoperatively. Labs and vital signs are stable on day of discharge. On day of discharge patient's hip incision is healing well. There is minimal erythema. There is no drainage noted at this time. There is minimal soft tissue swelling to the hip and thigh. Patient has full foot and ankle motion without difficulty or pain. Neurovascular status to the right lower extremity is intact. Patient is discharged home in good condition. Please see med rec for accurate list of home medications. Plan - Discharge Summary Discharge Rx Participant: No New Discharge Prescriptions: New Sennosides [Senokot] 1 tab PO BID #60 tablet traMADol HCl [Ultram] 1 - 2 tab PO Q6H PRN #56 tab PRN Reason: Pain No Action Warfarin Sodium 3 mg PO HS Simvastatin [Zocor] 20 mg PO HS Potassium Chloride [Klor-Con 10] 10 meq PO DAILY Furosemide [Lasix] 20 - 40 mg PO DAILY Carvedilol [Coreg] 12.5 mg PO BID Mexiletine HCl 200 mg PO BID Ubidecarenone [Co Q-10] 200 mg PO DAILY Aspirin [Children's Aspirin] 81 mg PO DAILY Turmeric Root Extract [Turmeric] 500 mg PO DAILY Acetaminophen Tab [Tylenol Tab] 1 - 2 tab PO Q8H PRN #90 tablet PRN Reason: Pain Losartan Potassium 75 mg PO DAILY Discharge Medication List Aspirin [Children's Aspirin] 81 mg PO DAILY 05/13/18 [History] Carvedilol [Coreg] 12.5 mg PO BID 05/13/18 [History] Furosemide [Lasix] 20 - 40 mg PO DAILY 05/13/18 [History] Mexiletine HCl 200 mg PO BID 05/13/18 [History] Potassium Chloride [Klor-Con 10] 10 meq PO DAILY 05/13/18 [History] Simvastatin [Zocor] 20 mg PO HS 05/13/18 [History] Turmeric Root Extract [Turmeric] 500 mg PO DAILY 05/13/18 [History] Ubidecarenone [Co Q-10] 200 mg PO DAILY 05/13/18 [History] Warfarin Sodium 3 mg PO HS 05/13/18 [History] Acetaminophen Tab [Tylenol Tab] 1 - 2 tab PO Q8H PRN #90 tablet 06/03/18 [Rx] Losartan Potassium 75 mg PO DAILY 10/05/18 [History] Sennosides [Senokot] 1 tab PO BID #60 tablet 10/06/18 [Rx] traMADol HCl [Ultram] 1 - 2 tab PO Q6H PRN #56 tab 10/06/18 [Rx] Follow up Appointment(s)/Referral(s): Nathaniel Kelly DO [Doctor of Osteopathic Medicine] - 2 Weeks Activity/Diet/Wound Care/Special Instructions: Weightbearing as tolerated with walker. Leave dressing intact. Dressing may be removed by home care nurse in 10 days. May shower with dressing on. Anticoagulation per internal medicine. Please follow-up with [facility] in 2 weeks and call with any questions or concerns, . Discharge Disposition: HOME WITH HOME HEALTH SERVICES
[2018-10-06] MEDS ORDERED: LOSARTAN 50 MG TAB PO SCH (09:00)
[2018-10-06] MEDS ORDERED: ASPIRIN 81 MG PO SCH (09:00)
[2018-10-06] MEDS ORDERED: FUROSEMIDE 20 MG TAB PO SCH (09:00)
[2018-10-06] MEDS ORDERED: ENOXAPARIN 100 MG/ML SYRINGE SQ SCH (10:30)
--- NOTE | 2018-10-06 10:36 | P.PN ---
Subjective Progress Note Date: 10/06/18 The patient is a 78 yo M with a PMH of CAD s/p LA x 1, CHF s/p AICD, LV aneurysm , RUE thrombus, prostate ca s/p resection, and Afib (on Coumadin) was admitted for planed R total hip arthroplasty. The patient underwent the procedure uneventfully. The patient was seen at the bedside. He has been ambulating and notes that he's feeling well. He denied any chest pain, SOB, nausea, vomiting, diarrhea, fever, chills, cough, headaches, or visual changes. Discussed the patient's PMH w/ his PMD Dr Kuo who noted that patient was previously diagnosed w/ an LV aneurysm and had a thrombus in the RUE for which he has been taking lifelong anticoagulation w/ coumadin. The patient's last echo showed EF 30-35% and patient is on lasix daily. Discussed bridging therapy for patient in light of thrombus. Patient will be started on Lovenox therapy and will be discharged on Lovenox Subq for 4 days with kathi f/u with Dr Adams on Thursday10/11/18 and INR check. Objective - Vital Signs Vital signs: Vital Signs Temp 97.5 F L 10/06/18 07:10 Pulse 83 10/06/18 07:10 Resp 16 10/06/18 07:10 BP 101/62 10/06/18 07:10 Pulse Ox 97 10/06/18 07:10 Intake & Output 10/05/18 10/06/18 10/06/18 18:59 06:59 18:59 Intake Total 1411 2240 180 Output Total 50 350 150 Balance 1361 1890 30 Weight 90.718 kg Intake: IV 1151 Intake, IV Titration 1520 Amount Sodium Chloride 0.9% 1, 520 000 ml @ 65 mls/hr IV . [id number] SHAHID Rx#:[id number] Sodium Chloride 0.9% 1, 1000 000 ml @ 999 mls/hr IV . Q1H1M ONE Rx#:[id number] Oral 260 720 180 Output: Urine 350 150 Straight 350 Estimated Blood Loss 50 - Exam General: Non-toxic, in no acute distress, appears stated age, obese HEENT: NC/AT, anicteric sclerae, moist conjunctiva, no lid-lag, PERRLA Cardiovascular: S1/S2 wnl, no murmurs, rubs, or gallops Lungs: Clear to auscultation, normal respiratory effort, no accessory muscle use Abdominal: Soft, nontender, non-distended, no guarding, rebound, or rigidity Skin: Warm, dry Extremities: No edema or contractures, R hip dressing in place, clean Psychiatric: Alert and oriented to person, place and time, appropriate affect, Intact judgment Neuro: CN II-XII grossly intact, Strength 5/5 in all 4 extremities, Speech intact, Sensation to light touch grossly intact throughout - Labs CBC & Chem 7: 10/06/18 07:08 Labs: Abnormal Lab Results - Last 24 Hours (Table) 10/05/18 10/06/18 10/06/18 Range/Units 10:00 07:08 07:08 WBC 13.0 H (3.8-10.6) k/uL RBC 2.63 L (4.30-5.90) m/uL Hgb 8.3 L D (13.0-17.5) gm/dL Hct 25.5 L (39.0-53.0) % Neutrophils # 10.6 H (1.3-7.7) k/uL Lymphocytes # 0.7 L (1.0-4.8) k/uL Monocytes # 1.3 H (0-1.0) k/uL PT 12.3 H (9.0-12.0) sec INR 1.2 H 1.3 H (<1.2) Assessment and Plan Plan: Post-operative pain s/p R hip arthroplasty - Patient notes he previously had hallucinations w/ [place] - Agree w/ Dilaudid prn - Bowel regimen - OT/PT - As per [facility] CAD w/ CHF - C/w Aspirin, Zocor, and Lasix PO home dose. Afib and hx of LV aneurysm and RUE thrombus - C/w Coumadin and will bridge w/ Lovenox 1mg/kg q12h subq for 4 days. Discussed with patient's PMD. Patient will f/u with PMD on Thursday w/ INR check. DVT//GI proph - Coumadin, Lovenox - No indication for GI proph
[2018-10-06] MEDS ORDERED: ACETAMINOPHEN TAB 325 MG TAB PO PRN (15:06)
[2018-10-06 15:33] VITALS: BP 113/68; PULSE 88; TEMP 98.2
[2018-10-06] MEDS ORDERED: WARFARIN 5 MG TAB PO ONE (18:00)
== END 2018-10-06 18:06 | disposition home or self-care (01) | DRG 470 ==
LOC: 2ORMAIN 09:24 → 4SSUR 15:30
PROVIDERS: ADMIT Orthopaedic Surgery; ATTEND Orthopaedic Surgery
PROC: 0SR906A Replacement of Right Hip Joint with Oxidized Zirconium on Polyethylene Synthetic Substitute, Uncemented, Open Approach (ICD-10-PCS; principal; 2018-10-05 11:00)
DX: M16.11 Unilateral primary osteoarthritis, right hip (principal); I25.3 Aneurysm of heart; D64.9 Anemia, unspecified; D72.829 Elevated white blood cell count, unspecified; E78.5 Hyperlipidemia, unspecified; I25.10 Atherosclerotic heart disease of native coronary artery without angina pectoris; I25.2 Old myocardial infarction; I50.9 Heart failure, unspecified; M06.9 Rheumatoid arthritis, unspecified; Z79.01 Long term (current) use of anticoagulants; Z79.82 Long term (current) use of aspirin; Z85.46 Personal history of malignant neoplasm of prostate; Z87.891 Personal history of nicotine dependence; Z95.810 Presence of automatic (implantable) cardiac defibrillator; Z79.899 Other long term (current) drug therapy; I48.91 Unspecified atrial fibrillation; Z98.42 Cataract extraction status, left eye; Z98.41 Cataract extraction status, right eye
CPT/HCPCS: 73501; 85025; 85610; 86850; 86891; 86900; 86901; 88300

== ENCOUNTER 2022-07-01 11:10 | Day surgery (SDC) | payer MEDICARE ==
[2022-06-30 09:02] VITALS: BMI 28.3
[2022-07-01 11:48] VITALS: TEMP 97.4
[2022-07-01] MEDS ORDERED: LIDOCAINE 1% (10MG/ML) FOR IV START INTRADERMA ONE (11:56)
[2022-07-01] MEDS ORDERED: LACTATED RINGERS 1,000 ML IV ONE (11:56)
[2022-07-01] MEDS ORDERED: PROPOFOL 10 MG/ML 20 ML VIAL IV ONE (12:09)
[2022-07-01 12:49] VITALS: RESP 16
[2022-07-01 12:53] VITALS: BP 116/52; PULSE 62
[2022-07-01 12:59] LABS: Basophils % (A) 1 %; Eosinophils # (A) 0.1 k/uL (0-0.7); Eosinophils % (A) 3 %; HCT 35.5 % (39.0-53.0); HGB 11.6 gm/dL (13.0-17.5); Lymphocytes # (A) 0.8 k/uL (1.0-4.8); Lymphocytes % (A) 33 %; MCH 34.1 pg (25.0-35.0); MCHC 32.6 g/dL (31.0-37.0); MCV 104.7 fL (80.0-100.0); Macrocytosis Moderate; Mean Platelet Volume 13.7; Monocytes # (A) 0.1 k/uL (0-1.0); Monocytes % (A) 4 %; Neutrophils # (A) 1.4 k/uL (1.3-7.7); Neutrophils % (A) 57 %; RBC 3.39 m/uL (4.30-5.90); RDW 15.2 % (11.5-15.5); WBC 2.4 k/uL (3.8-10.6)
[2022-07-01 13:09] LABS: Reticulocyte % 4.2 % (0.5-2.0)
[2022-07-01 14:07] LABS: Platelet Count 32 k/uL (150-450)
--- NOTE | 2022-07-01 19:33 | OP ---
OPERATIVE REPORT PREOPERATIVE DIAGNOSIS: Pancytopenia. POSTOPERATIVE DIAGNOSIS: Pancytopenia. PROCEDURES PERFORMED: Bone marrow aspirate and biopsy. SITE: Right iliac crest. ANESTHESIA: Local with IV systemic sedation. DESCRIPTION OF PROCEDURE: Utilizing sterile technique, the skin overlying the right iliac crest was prepared with Betadine and alcohol. After adequate sterile draping, a size 11, 4-inch Jamshidi needle was utilized to access the periosteum with ease. A total of 15 mL of aspirate and 2 cm bone core biopsies were obtained. The patient tolerated the procedure very well. There was no immediate procedure-related complication. TOTAL BLOOD LOSS: Less than 1 mL. RESULTS: Pending. MMODL / IJN: [id number] /
== END 2022-07-01 13:20 | disposition home or self-care (01) ==
LOC: OR 11:10
PROVIDERS: ATTEND Internal Medicine Hematology & Oncology
DX: D61.818 Other pancytopenia (principal); I25.2 Old myocardial infarction; Z87.891 Personal history of nicotine dependence; Z86.718 Personal history of other venous thrombosis and embolism; Z85.46 Personal history of malignant neoplasm of prostate; Z90.79 Acquired absence of other genital organ(s); Z79.82 Long term (current) use of aspirin; Z79.899 Other long term (current) drug therapy; Z95.810 Presence of automatic (implantable) cardiac defibrillator; Z80.42 Family history of malignant neoplasm of prostate
CPT/HCPCS: 85025; 85045; 38222; J2704

== ENCOUNTER 2023-06-07 01:29 | Inpatient (IN) | payer MEDICARE ==
[2023-06-07] MEDS ORDERED: SODIUM CHLORIDE 0.9% 250 ML IV SCH (03:30)
[2023-06-07 03:38] LABS: Potassium 4.7 mmol/L (3.5-5.1)
[2023-06-07 03:39] LABS: ALT 12 U/L (4-49); AST 59 U/L (17-59); African American GFR (CKD) 47 (>60 ml/min/1.73 sqM); Albumin 2.9 g/dL (3.5-5.0); Alkaline Phosphatase 62 U/L (38-126); Anion Gap 8 mmol/L; Blood Urea Nitrogen 50 mg/dL (9-20); Carbon Dioxide 25 mmol/L (22-30); Chloride 99 mmol/L (98-107); Glucose 123 mg/dL (74-99); Non-African American GFR(CKD) 41 (>60 ml/min/1.73 sqM); Sodium 132 mmol/L (137-145); Total Protein 5.9 g/dL (6.3-8.2)
[2023-06-07] MEDS ORDERED: SODIUM CHLORIDE 0.9% 500 ML 250 ML IV ONE ×3 (03:39→06:41)
[2023-06-07 03:47] LABS: HCT 25.4 % (39.0-53.0); HGB 8.4 gm/dL (13.0-17.5); Hypochromasia Moderate; MCH 41.6 pg (25.0-35.0); Macrocytosis Marked; Mean Platelet Volume 16.3; RBC 2.02 m/uL (4.30-5.90); RDW 15.6 % (11.5-15.5)
--- NOTE | 2023-06-07 04:06 | P.EN ---
A team note Activated at 3:00 am for hypertension. Arrived at the scene shortly after. Reviewed the chart and discussed the case with RN. The patient is an 83-year-old male with a PMH of myelodysplastic syndrome, chronic CHF EF 35%, who was transferred from [facility] where the patient had been previously admitted on 06/05 for altered mental status. The patient was noted to have a UTI and was started on IV ceftriaxone. A CT brain without contrast was reportedly unremarkable. Patient also noted to have abnormal liver function tests with hyperbilirubinemia. CT abdomen and pelvis had revealed findings consistent with hepatic congestion as per the documentation from [facility]. The patient's hemoglobin was noted to drop from 9.7 upon admission to 7.9. There was no obvious reports of GI bleeding. The patient was subsequently transferred to [facility] for further evaluation for anemia and altered mental status. As per the family, the patient's baseline mental status is A and O 3, MO 3 with a walker and participating in some of his ADLs. Upon arrival at the scene, the patient's BP was 85/54, pulse 92, SpO2 99% on room air, and temp 98F. The complete laboratory evaluation was reviewed with WBC count 12.3, hemoglobin 7.8, MCV 128, platelets 18, sodium 133, potassium 4.9, BUN 46, creatinine 1.6, AST 67, ALT 12, alk phos 60, total bilirubin 1.7. EKG was obtained shortly after arrival and revealed sinus rhythm at 90 bpm with T-wave inversion noted in lead V4 to V6. The patient was answering basic questions. He denied any active complaints. He was however also speaking incoherently throughout the interview and exam. General: Chronically ill-appearing male, in no acute distress, appears stated age, normal weight HEENT: NC/AT, scleral icterus noted, moist conjunctiva, no lid-lag, PERRLA, mucous membranes dry Cardiovascular: S1/S2 wnl, systolic murmur appreciated, rubs, or gallops Lungs: Clear to auscultation, normal respiratory effort, no accessory muscle use Abdominal: Soft, non-tender, non-distended, no guarding, rebound, or rigidity Skin: Warm, dry Extremities: No edema or contractures Psychiatric: Slow to respond, oriented only to self Neuro: Moving all extremities grossly, not following all directions, speech grossly intact Assessment Macrocytic anemia Altered mental status Hypotension, suspect due to dehydration (increased BUN to creatinine ratio and appearing clinically dry) Severe thrombocytopenia, likely due to MDS Jaundice UTI Plan 500 mL NS bolus ordered Continue cardiac monitoring Hematology consulted Obtain fecal occult blood testing Obtain repeat blood work Ammonia levels ordered C/w Ceftriaxone 2g qd IVPB Lactate levels ordered Patient may need ICU level of care if blood pressure doesn't respond to fluid resuscitation in light of CHF hisory Family requested that patient be made a No Code (as per his wishes). The patient was also no code at [facility]. Total time spent providing critical care for this patient: 40 minutes
[2023-06-07 04:19] LABS: NT-Pro-B-Type Natriuretic Pept 31900 pg/mL
[2023-06-07 04:26] LABS: INR 1.1 (<1.2); Prothrombin Time 11.5 sec (9.0-12.0)
[2023-06-07 04:31] LABS: Lactic Acid, Venous 2.9 mmol/L (0.7-2.0)
--- NOTE | 2023-06-07 05:16 | XR ---
EXAM: XR Chest, 1 View CLINICAL HISTORY: ITS.REASON XR Reason: r/o chf TECHNIQUE: Frontal view of the chest. COMPARISON: 06/02/2018 FINDINGS: Lungs: Unremarkable. No consolidation. Pleural space: Unremarkable. No pneumothorax. Heart: Cardiomegaly. Mediastinum: Unremarkable. Bones/joints: Unremarkable. Tubes, lines and devices: Left chest wall dual-lead cardiac device. IMPRESSION: No change from prior exam. No acute pulmonary pathology
[2023-06-07] MEDS ORDERED: HALOPERIDOL LACTATE 5 MG/ML 1 ML VIAL IVP ONE (05:30)
[2023-06-07 06:33] LABS: Band Neutrophils % 18 %; Eosinophils # (M) 0.13 k/uL (0-0.7); Metamyelocytes # (M) 0.26 k/uL (0); Metamyelocytes % 2 %; Monocytes # (M) 0.13 k/uL (0-1.0); Myelocytes # (M) 0.13 k/uL (0); Myelocytes % 1 %; Neutrophils % (M) 64 %; Nucleated Red Blood Cells 1 /100 WBC (0-0); Total Cells Counted 200
[2023-06-07 06:34] LABS: Lymphocytes # (M) 1.94 k/uL (1.0-4.8); WBC 12.9 k/uL (3.8-10.6)
[2023-06-07 06:35] LABS: Anisocytosis (M) Present
[2023-06-07 06:39] LABS: Polychromasia Present
[2023-06-07 06:43] LABS: Toxic Vacuolation Present
[2023-06-07 06:46] LABS: Platelet Count 17 k/uL (150-450)
--- NOTE | 2023-06-07 07:22 | P.HPIM ---
History of Present Illness This is a pleasant 83 years old male with past medical history of heart failure with ejection fraction about 35% per at bedside. He is status post defibrillator. He has history of atrial flutter, he has history of stroke and a venous thrombosis. History of rheumatoid arthritis. History of sleep apnea on CPAP/BiPAP As per family and daughter at bedside patient was at baseline however in the morning patient was lethargic he was confused and he could not stand up to go to the bathroom as usual with the help of his because of that he was taken by EMS to [facility]. He was therefore 2 days and he was not improving and was transferred to this facility I spoke with Dr. Roberts from [facility] yesterday and he wants to be transferred because of anemia and they could not give him blood transfusion with special antibiotic screen also because of worsening clinical condition area they don't have consults and that facility as it was a critical access Hospital so it was transferred to [facility], this facility for higher level of care. As per Dr. Obrien patient was diagnosed with UTI and altered mental status when he came to ER also he had some slurred speech and there was suspicion of stroke the patient is not interacting. As per , patient hemoglobin was 9.7 on admission came down to 7.9 and they wanted him wound blood units. Creatinine went up from 1.2 and 21.6. Platelet count was 18,000 but patient with no evidence of bleeding. Computed tomography scan done at the other facility was negative as per Dr. Obrien. He had CT of the abdomen and pelvis with no acute event. However he was in anasarca but patient is not hypoxic. I discussed the case with the family at bedside and they want no code, no CPR, no intubation but her medication Patient blood pressure was on the low side 76/48. Morning and 18 was called for this reason. He received several boluses of normal saline about 250 mL each time. He is saturating 100% on room air. He is been afebrile showing leukocytosis of 12.9, hemoglobin 8.4 which is microcytic, low platelet count at 17,000. INR 1.1. Creatinine 1.5. Lactic acid slightly elevated at 2.9. Liver enzymes not elevated. [place] [address]. Ammonia less than 9. CXR: No change from prior exam. No acute pulmonary pathology Review of Systems ROS unobtainable: due to mental status Past Medical History Past Medical History: Atrial Flutter, Cancer, Heart Failure, CVA/TIA, Deep Vein Thrombosis (DVT), Hyperlipidemia, Myocardial Infarction (RI), Rheumatoid Arthritis (RA), Sleep Apnea/CPAP/BIPAP Additional Past Medical History / Comment(s): prostate cancer, back pain, hx blood clot rt elbow, hiatal hernia, myelodysplatic syndrome Last Myocardial Infarction Date:: 1996 History of Any Multi-Drug Resistant Organisms: None Reported Past Surgical History: Joint Replacement, Pacemaker, Prostate Surgery Additional Past Surgical History / Comment(s): blood clot rt elbow surgically removed, pacemaker defibrillator-"[employer] model [id number] placed 2009", dustin. cataract surgery, dustin. hip replacements Past Anesthesia/Blood Transfusion Reactions: No Reported Reaction Type of Cardiac Device: AICD Device Placement Date:: 2009 Past Psychological History: No Psychological Hx Reported Smoking Status: Former smoker Past Alcohol Use History: None Reported Additional Past Alcohol Use History / Comment(s): "QUIT YEARS AGO" Past Drug Use History: None Reported - Past Family History Father Family Medical History: Cancer Daughter(s) Additional Family Medical History / Comment(s): 2 miscarriages, 2 D/C, Medications and Allergies Home Medications Medication Instructions Recorded Confirmed Type Furosemide [Lasix] 20 mg PO DAILY 05/13/18 06/07/23 History Potassium Chloride [Klor-Con 10 ER] 10 meq PO DAILY 05/13/18 06/07/23 History Simvastatin [Zocor] 20 mg PO HS 05/13/18 06/07/23 History carvediloL [Coreg] 3.25 mg PO BID 05/13/18 06/07/23 History Cholecalciferol [Vitamin D3 (25 75 mcg PO DAILY 06/30/22 06/07/23 History Mcg = 1000 Iu)] Cyanocobalamin (Vitamin B-12) 1,000 mcg PO DAILY 06/30/22 06/07/23 History [Vitamin B-12] Ferrous Sulfate [Feosol] 325 mg PO BID 06/30/22 06/07/23 History Acetaminophen Tab [Tylenol Tab] 1,000 mg PO Q8H 06/07/23 06/07/23 History Carbidopa/Levodopa [Sinemet 25-100 1 each PO QID 06/07/23 06/07/23 History mg] Nitroglycerin Sl Tabs [Nitrostat] 0.4 mg SUBLINGUAL Q5M PRN 06/07/23 06/07/23 History Sennosides [Senokot] 1 tab PO Q24HR 06/07/23 06/07/23 History Ubidecarenone [Co Q-10] 200 mg PO DAILY 06/07/23 06/07/23 History Allergies Allergy/AdvReac Type Severity Reaction Status Date / Time No Known Allergies Allergy Verified 11/24/22 10:33 Physical Exam Vitals: Vital Signs Temp Pulse Pulse Resp BP Pulse Ox 06/07/23 06:36 97.4 F L 94 12 76/48 100 06/07/23 06:05 93/56 06/07/23 05:45 77/38 06/07/23 03:50 98.0 F 81 16 86/48 100 06/07/23 03:49 98.0 F 91 16 82/49 100 06/07/23 03:15 91 10 L 86/52 97 06/07/23 03:08 99.2 F 94 12 79/59 94 L Intake and Output 06/06/23 06/07/23 06/07/23 22:59 06:59 14:59 Other: # Voids 0 Weight 62.5 kg GENERAL: The patient is confused, drowsy, mumbles, does not follow command. -HEENT: Pupils are round and equally reacting to light. EOMI. No scleral icterus. No conjunctival pallor. Normocephalic, atraumatic. No pharyngeal erythema. No thyromegaly. puffiness around the eyes CARDIOVASCULAR: S1 and S2 present. No murmurs, rubs, or gallops. PULMONARY: Chest is clear to auscultation, no wheezing , no crackles. -ABDOMEN: Soft, tender especially in the upper abdomen, nondistended, normoactive bowel sounds. No palpable organomegaly. MUSCULOSKELETAL: No joint swelling or deformity. EXTREMITIES: No cyanosis, clubbing, or pedal edema. Upper extremity swelling -NEUROLOGICAL: exam is limited by mentation changes. Patient is confused drowsy and cooperative. Cranial nerves are grossly intact. Differences in tone. Meningeal signs are absent SKIN: No rashes. no petechiae. Results CBC & Chem 7: 07/23/23 03:16 06/07/23 03:16 Labs: Abnormal Lab Results - Last 24 Hours (Table) 06/07/23 06/07/23 06/07/23 Range/Units 03:16 03:16 03:16 WBC 12.9 H (3.8-10.6) k/uL RBC 2.02 L (4.30-5.90) m/uL Hgb 8.4 L (13.0-17.5) gm/dL Hct 25.4 L (39.0-53.0) % MCV 126.0 H (80.0-100.0) fL MCH 41.6 H (25.0-35.0) pg RDW 15.6 H (11.5-15.5) % Plt Count 17 L* (150-450) k/uL Neutrophils # (Manual) 10.50 H (1.3-7.7) k/uL Metamyelocytes # (Man) 0.26 H (0) k/uL Myelocytes # (Manual) 0.13 H (0) k/uL Nucleated RBCs 1 H (0-0) /100 WBC Macrocytosis Marked A Sodium 132 L (137-145) mmol/L BUN 50 H (9-20) mg/dL Creatinine 1.56 H (0.66-1.25) mg/dL Glucose 123 H (74-99) mg/dL Plasma Lactic Acid Jermaine 2.9 H* (0.7-2.0) mmol/L Total Bilirubin 2.0 H (0.2-1.3) mg/dL Total Protein 5.9 L (6.3-8.2) g/dL Albumin 2.9 L (3.5-5.0) g/dL Thrombosis Risk Factor Assmnt - Choose All That Apply Any of the Below Risk Factors Present?: Yes Each Factor Represents 1 point: Obesity (BMI >25) Each Risk Factor Represents 3 Points: Age 75 years or older, History of DVT/PE Thrombosis Risk Factor Assessment Total Risk Factor Score: 7 Thrombosis Risk Factor Assessment Level: High Risk Assessment and Plan Assessment: Altered mental status, severe. The metabolic/toxic encephalopathy. Peripheral edema and fluid overload Acute on chronic CHF with low ejection fraction about 35% per family history Acute urinary tract infection diagnosed in [facility] Low-normal blood pressure Abdominal tenderness Mildly elevated lactic acid Severe thrombocytopenia History of myelodysplastic syndrome history of sleep apnea History of rheumatoid arthritis Hyperlipidemia History of sick sinus syndrome status post pacemaker area Parkinson disease No comment Plan: Monitor blood pressure Continue with ceftriaxone currently on Rocephin We'll order CT of the brain without contrast We'll order CT of the abdomen and pelvis without contrast given his abdominal tenderness Blood culture and follow-up other cultures Check proCALCITONIN. Avoid aspirin and blood thinner given his severe thrombocytopenia Neuro check Telemetry monitoring Cardiology consult Hematology/oncology consult Labs and medication were reviewed.. Continue same treatment. Continue with symptomatic treatment. Resume home medication. Monitor labs and vitals. DVT and GI prophylaxis. Further recommendations as per clinical course of the patient DVT prophylaxis: no Subcutaneous heparin, for severe thrombocytopenia. Continue with mechanical GI Prophylaxis: Ppi Prognosis is guarded
--- NOTE | 2023-06-07 07:45 | CT ---
EXAMINATION TYPE: CT brain wo con CT DLP: 1202.4 mGycm, Automated exposure control for dose reduction was used. DATE OF EXAM: 06/07/2023 7:29 AM COMPARISON: Prior CT Brain from 06/03/2018 . CLINICAL INDICATION:Male, 83 years old with history of altered mental status, AMS TECHNIQUE: Brain: Multiple axial CT images of the brain were obtained without IV contrast. Coronal and sagittal reformats reviewed. FINDINGS: Brain: Extra-axial spaces: No abnormal extra-axial fluid collections. Ventricular system: Similar dilatation of the lateral ventricles. Cerebral parenchyma: Cerebral atrophy. No acute intraparenchymal hemorrhage or mass effect. The pantoja -white junction is well differentiated. Scattered hypoattenuating areas are seen within the white mat ter. Cerebellum: Unremarkable. Mass effect: No evidence of midline shift. Intracranial vasculature: Atherosclerotic calcifications of the intracranial vessels. Soft tissues: Normal. Calvarium/osseous structures: No depressed skull fracture. Paranasal sinuses and mastoid air cells: Clear Visualized orbits: Orbital contents are intact. The globes again appears slightly proptotic. IMPRESSION: 1. Mildly dilated ventricular system which appears similar to prior examination. This may relate to cerebral atrophy however normal pressure hydrocephalus is not excluded. Correlate clinically. 2. No acute intracranial hemorrhage. 3. Nonspecific white matter changes likely related to chronic small vessel ischemic disease.
--- NOTE | 2023-06-07 07:55 | CT ---
EXAMINATION TYPE: CT abdomen pelvis wo con CT DLP: 563 mGycm, Automated exposure control for dose reduction was used. DATE OF EXAM: 06/07/2023 7:28 AM COMPARISON: CT abdomen pelvis most recent from 06/06/2023. CLINICAL INDICATION:Male, 83 years old with history of abdominal pain; abd pain TECHNIQUE: Standard CT of the . Coronal and sagittal reformats were performed. FINDINGS: LOWER CHEST: Small bilateral pleural effusions with interlobular septal thickening and atelectasis. C ardiomegaly with coronary artery calcification and/or stents. Partial visualization of cardiac pacema nory device. ABDOMEN LIVER: Unremarkable noncontrast appearance GALLBLADDER AND BILE DUCTS: Vicarious excretion of contrast identified within the gallbladder. Gallbl adder wall thickening identified. No biliary ductal dilatation. PANCREAS: Unremarkable noncontrast appearance. SPLEEN: Unremarkable noncontrast appearance. ADRENAL GLANDS: Unremarkable noncontrast appearance. KIDNEYS AND URETERS: No evidence of hydronephrosis.Delayed nephrographic appearance. Contrast is demo nstrated within both collecting systems with some hyperdensity involving the cortex of the right supe rior pole possibly related calyceal diverticulum. This limits evaluation for renal calculi. Left kathe l cyst measuring up to 1.2 cm. PELVIS BLADDER: Limited visualization due to hip prosthesis with contrast-filled appearance from prior CT. REPRODUCTIVE: Poorly visualized due to hip prosthesis streak artifact. ABDOMEN & PELVIS STOMACH AND BOWEL: Moderate to large size hiatal hernia. Focal bowel wall thickening or stranding inf lammatory changes. Mild colonic stool burden. 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 No evidence of bowel obstruction. PERITONEUM: No evidence of pneumoperitoneum or free fluid. Presacral edema. VASCULATURE: Moderate atherosclerotic calcifications are present throughout the abdominal aorta and i ts branches. No evidence of aortic aneurysm. MUSCULOSKELETAL: No acute osseous abnormalities. Bilateral total hip arthroplasty changes which creat es streak artifact which limits evaluation. Dextrocurvature of the thoracolumbar spine. Moderate mult ilevel degenerative disease LYMPH NODES: No gross evidence for lymphadenopathy. SOFT TISSUE/ABDOMINAL WALL: Diffuse anasarca. IMPRESSION: 1. Retained contrast within both kidneys and collecting system suggestive of acute tubular necrosis. 2. Cardiomegaly with intralobular septal thickening, small bilateral pleural effusions and diffuse an asarca suggestive of CHF exacerbation/volume overload. 3. Vicarious excretion of contrast within the gallbladder with gallbladder wall thickening which is l ikely related to volume overload. 4. Mild colonic stool burden with a rectal fecaloma measuring up to 5.8 cm.
[2023-06-07] MEDS: CARBIDOPA-LEVODOPA 25-100 MG 1 EACH TAB PO SCH ×4 (07:56→21:32)
[2023-06-07] MEDS ORDERED: PIPERACILLIN-TAZOBACTAM 3.375 GM in SODIUM CHLORIDE 0.9% 100 ML IVPB STA (08:29)
[2023-06-07] MEDS: PANTOPRAZOLE 40 MG/10 ML VIAL IVP SCH (09:47)
--- NOTE | 2023-06-07 10:02 | US ---
EXAMINATION TYPE: US gallbladder DATE OF EXAM: 06/07/2023 COMPARISON: CT abdomen pelvis 06/07/2023 CLINICAL INDICATION: Male, 83 years old with history of ruq pain; RUQ pain TECHNIQUE: Multiple sonographic images of the right upper quadrant are obtained. FINDINGS: EXAM MEASUREMENTS: Liver Length: 15.5 cm Gallbladder Wall: 0.3 cm CBD: 0.3 cm Right Kidney: 10.3 x 5.0 x 5.0 cm Pancreas: Obscured by bowel gas Liver: appears wnl Gallbladder: sludge, complex anechoic area adjacent to GB wall ?fluid Evidence for sonographic Lopez's sign: no CBD: wnl Right Kidney: no evidence of hydronephrosis Pancreas is obscured by overlying bowel gas. Gallbladder sludge. Trace pericholecystic fluid. No wall thickening. Per senior ui software engineer, negative sonographic Lopez sign. Liver appears unremarkable. Common bi le ducts within normal limits. Right kidney is unremarkable without evidence of hydronephrosis, shado wing calculi, or solid mass. Corticomedullary differentiation is maintained. IMPRESSION: Gallbladder sludge with trace pericholecystic fluid. No wall thickening or positive sonographic Avi y's sign to suggest acute cholecystitis.
[2023-06-07 11:17] LABS: Appearance,Urine Cloudy (Clear); Bacteria,Urine Occasional /hpf; Bilirubin,Urine Negative (Negative); Blood,Urine Large (Negative); Color,Urine Dark Brown; Glucose,Urine (UA) Negative (Negative); Ketones,Urine Negative (Negative); Leukocyte Esterase,Urine Large (Negative); Nitrite,Urine Negative (Negative); PH, Urine 5.5 (5.0-8.0); Protein,Urine 1+ (Negative); RBC,Urine >182 /hpf (0-5); WBC,Urine >182 /hpf (0-5)
[2023-06-07 11:34] LABS: Glucose,Whole Blood 130 mg/dL (70-110)
--- NOTE | 2023-06-07 12:09 | P.CNPUL ---
History of Present Illness Consult date: 06/07/23 Requesting physician: Subhash E Sheet Reason for consult: other (Hypotension) Chief complaint: Weakness History of present illness: This is an 83-year-old white male with history of multiple medical problems including cardiomyopathy and LV dysfunction with ejection fraction of 35%. Chronic atrial fibrillation/flutter, history of CVA and deep vein thrombosis, history of rheumatoid arthritis, and history of myelodysplastic syndrome. Patient was admitted to [facility] in January with multiple medical issues, and he was in the hospital for about 3 weeks. Patient will eventually discharged h [facility] with home physical therapy/rehabilitation. According to the he does have history of dementia and Parkinson's disease and he does have chronic weakness, but his weakness in the last few days has been much worse. Patient was taken to [facility], and he was found to be anemic, thrombocytopenic, WBC count 12.9 hemoglobin 8.4 and platelets 17,000. Patient was also noted to have worsening renal status with creatinine of 1.56, chest x-ray suggestive of congestive heart failure, he has bilateral pleural effusions, he also has what seems to be a urinary tract infection with pyuria and bacteriuria noted in the urinalysis. CT of abdomen and pelvis showed mostly retained contrast within both kidneys suggestive of acute tubular necrosis, he was noted to have anasarca and bilateral pleural effusions suggestive of congestive heart failure/volume overload. Prior to coming to [facility], patient was seen at [facility] and supposedly he was therefore 2 days, and they were having difficulty with platelets transfusion mostly because of antibodies, hence arran gements were made to transfer the patient to [facility]. Patient had low marginal blood pressure. Looking at his blood pressure his mean has been ranging anywhere between 59 up to 66 since admission, he has very poor urine output, and he looks extremely frail, weak, and chronically ill. Hence I recommended transferring the patient to the ICU for close monitoring. Although I did discuss the CODE STATUS with the and daughter at bedside before transferring the patient to the ICU and clearly the patient had previously expressed wishes to have no CPR, no defibrillation, and no intubation/mechanical ventilation. Clearly his CODE STATUS is DO NOT RESUSCITATE I have suggested evaluation by different consultants including hematology for his myelodysplastic syndrome and transfusions of platelets I will also recommended cardiology to see the patient on consultation, nephrology and infectious disease. Overall prognostic picture seems to be extremely poor Review of Systems ROS unobtainable: due to mental status (Patient could not give any history, he is confused, family states that he has been mostly weak. Cannot ambulate on his own, mostly bedbound but intermittently was able to use the walker until recently on his own.) Past Medical History Past Medical History: Atrial Flutter, Cancer, Heart Failure, CVA/TIA, Deep Vein Thrombosis (DVT), Hyperlipidemia, Myocardial Infarction ([place]), Rheumatoid Arthritis ([place]), Sleep Apnea/CPAP/BIPAP Additional Past Medical History / Comment(s): prostate cancer, back pain, hx blood clot rt elbow, hiatal hernia, myelodysplatic syndrome Last Myocardial Infarction Date:: 1996 History of Any Multi-Drug Resistant Organisms: None Reported Past Surgical History: Joint Replacement, Pacemaker, Prostate Surgery Additional Past Surgical History / Comment(s): blood clot rt elbow surgically removed, pacemaker defibrillator-"[employer] model [id number] placed 2009", dustin. cataract surgery, dustin. hip replacements Past Anesthesia/Blood Transfusion Reactions: No Reported Reaction Type of Cardiac Device: AICD Device Placement Date:: 2009 Past Psychological History: No Psychological Hx Reported Smoking Status: Former smoker Past Alcohol Use History: None Reported Additional Past Alcohol Use History / Comment(s): "QUIT YEARS AGO" Past Drug Use History: None Reported - Past Family History Father Family Medical History: Cancer Daughter(s) Additional Family Medical History / Comment(s): 2 miscarriages, 2 D/C, Medications and Allergies Home Medications Medication Instructions Recorded Confirmed Type Furosemide [Lasix] 20 mg PO DAILY 05/13/18 06/07/23 History Potassium Chloride [Klor-Con 10 ER] 10 meq PO DAILY 05/13/18 06/07/23 History Cholecalciferol [Vitamin D3 (25 75 mcg PO DAILY 06/30/22 06/07/23 History Mcg = 1000 Iu)] Cyanocobalamin (Vitamin B-12) 1,000 mcg PO DAILY 06/30/22 06/07/23 History [Vitamin B-12] Acetaminophen Tab [Tylenol Tab] 1,000 mg PO Q8H 06/07/23 06/07/23 History Carbidopa/Levodopa [Sinemet 25-100 1 tab PO QID 06/07/23 06/07/23 History mg] Collagenase [Santyl Ointment] 1 applic TOPICAL DAILY 06/07/23 06/07/23 History Furosemide [Lasix] 40 mg PO DAILY PRN 06/07/23 06/07/23 History Nitroglycerin Sl Tabs [Nitrostat] 0.4 mg SUBLINGUAL Q5M PRN 06/07/23 06/07/23 History Sennosides [Senokot] 17.2 tab PO DAILY 06/07/23 06/07/23 History carvediloL [Coreg] 3.125 mg PO BID 06/07/23 06/07/23 History traZODone HCL [Desyrel] 25 mg PO Q3H PRN 06/07/23 06/07/23 History traZODone HCL [Desyrel] 50 mg PO HS 06/07/23 06/07/23 History Allergies Allergy/AdvReac Type Severity Reaction Status Date / Time No Known Allergies Allergy Verified 06/07/23 11:36 Physical Exam Vitals: Vital Signs Temp Pulse Pulse Resp BP Pulse Ox 06/07/23 10:52 63 18 79/55 95 06/07/23 10:06 92 85/56 06/07/23 09:45 89/52 06/07/23 09:20 98.5 F 92 17 92/54 94 L 06/07/23 08:50 89/45 06/07/23 08:35 89/50 06/07/23 08:20 97/52 06/07/23 08:10 81/48 06/07/23 07:51 79/50 06/07/23 07:45 90/51 06/07/23 07:40 87/49 06/07/23 07:35 87/79 06/07/23 07:30 84/47 06/07/23 07:25 79/40 06/07/23 07:15 81/48 06/07/23 07:04 95/58 06/07/23 06:36 97.4 F L 94 12 76/48 100 06/07/23 06:05 93/56 06/07/23 05:45 77/38 06/07/23 03:50 98.0 F 81 16 86/48 100 06/07/23 03:49 98.0 F 91 16 82/49 100 06/07/23 03:15 91 10 L 86/52 97 06/07/23 03:08 99.2 F 94 12 79/59 94 L Intake and Output 06/06/23 06/07/23 06/07/23 22:59 06:59 14:59 Other: Voiding Method Diaper Diaper # Voids 0 Weight 62.5 kg Physical Exam: Revealed an 83-year-old white male frail looking, chronically ill, confused, moaning and groaning and mumbling a few words. Head: Atraumatic, normocephalic. HEENT:[Neck is supple.] [No neck masses.] [No thyromegaly.] [No JVD.] Chest: [Clear throughout, no crackles, no rhonchi, no wheezes.] Cardiac Exam: [Normal S1 and S2, no S3 gallop, no murmur.] Abdomen: [Soft, nontender, no megaly, no rebound, no guarding, normal bowel sounds.] Extremities: [No clubbing, no edema, no cyanosis.] Neurological Exam: Patient is significantly confused, drowsy, does not follow any instructions. Significant muscle wasting noted bilaterally. Skin: Sacral decubitus ulcer stage I according to nurse taking care of the patient, receiving treatment accordingly. Results - Laboratory Findings CBC and BMP: 06/07/23 03:16 06/07/23 03:16 PT/INR, D-dimer PT 11.5 sec (9.0-12.0) 06/07/23 03:16 INR 1.1 (<1.2) 06/07/23 03:16 Abnormal lab findings: Abnormal Labs 06/07/23 06/07/23 06/07/23 03:16 03:16 03:16 WBC 12.9 H RBC 2.02 L Hgb 8.4 L Hct 25.4 L MCV 126.0 H MCH 41.6 H RDW 15.6 H Plt Count 17 L* Neutrophils # (Manual) 10.50 H Metamyelocytes # (Man) 0.26 H Myelocytes # (Manual) 0.13 H Nucleated RBCs 1 H Macrocytosis Marked A Sodium 132 L BUN 50 H Creatinine 1.56 H Glucose 123 H POC Glucose (mg/dL) Plasma Lactic Acid Jermaine 2.9 H* Total Bilirubin 2.0 H Total Protein 5.9 L Albumin 2.9 L Urine Protein Urine Blood Ur Leukocyte Esterase Urine RBC Urine WBC Urine WBC Clumps Urine Bacteria 06/07/23 06/07/23 09:53 11:33 WBC RBC Hgb Hct MCV MCH RDW Plt Count Neutrophils # (Manual) Metamyelocytes # (Man) Myelocytes # (Manual) Nucleated RBCs Macrocytosis Sodium BUN Creatinine Glucose POC Glucose (mg/dL) 130 H Plasma Lactic Acid Jermaine Total Bilirubin Total Protein Albumin Urine Protein 1+ H Urine Blood Large H Ur Leukocyte Esterase Large H Urine RBC >182 H Urine WBC >182 H Urine WBC Clumps Many H Urine Bacteria Occasional H - Diagnostic Findings Chest x-ray: image reviewed (As noted in HPI) Additional studies: CT of abdomen and pelvis: As noted in HPI Assessment and Plan Assessment: Impression: Hypotension, possible sepsis, likely sources include urinary tract infection, sacral decubitus ulcer, but this is most likely UTI related. Acute on chronic systolic congestive heart failure Myelodysplastic syndrome with chronic anemia and thrombocytopenia Acute urinary tract infection History of rheumatoid arthritis Dementia and Parkinson's disease History of sick sinus syndrome and previous pacemaker implantation Dyslipidemia Bilateral pleural effusions and congestive heart failure Acute kidney injury, could be cardiorenal or could be related to his sepsis. Recommendation: Transfer patient to the ICU for close monitoring of the blood pressure Continue antibiotics as ordered by infectious disease on the case, presently on Rocephin for UTI. Consult cardiology and nephrology infectious disease and hematology Gentle diuresis once the blood pressure stabilizes. Continue GI and DVT prophylaxis, avoid heparin products Address nutritional support may have to have a nasogastric tube in place as the patient is not neurologically able to safely swallow on his own. Prognosis is extremely poor and guarded DO NOT RESUSCITATE CODE STATUS after my discussion with family at bedside We will continue to follow. Time with Patient: Greater than 30
[2023-06-07 13:07] LABS: LDH 442 U/L (120-246)
[2023-06-07 13:20] LABS: Reticulocyte % 11.6 % (0.5-2.0)
--- NOTE | 2023-06-07 15:25 | P.CRDCN ---
History of Present Illness History of present illness: HISTORY OF PRESENTING ILLNESS Patient is pleasant 83-year-old male with history of cardiomyopathy EF 35% status post AICD, persistent atrial fibrillation, prior CVA, DVT, rheumatoid arthritis, mild dysplastic syndrome and recent weight loss who presents for transfer secondary to altered mental status. Patient additionally has some dementia and has been fairly weak and fatigued and is a DO NOT RESUSCITATE. He apparently had been in his usual state of health up until Thursday morning when he was found be altered in not responding appropriately and lethargic. He was diagnosed with urinary tract infection at [facility]. Additional concern of anemia with possible need of blood transfusion and given he did have antibodies to blood and no match she was transferred to [facility]. Patient currently confused and history is supplied by family. They admit he is feeling somewhat better today. He has apparent history of FL back 15 years ago with cardiomyopathy and intermittently takes Lasix as needed if starts to develop more swelling and if the blood pressures too low he will forego the Lasix. Workup shows urinalysis large leukocyte esterase, greater than 182 white blood cells and RBCs and pro-calcitonin 3.7. Hemoglobin 8.4, white blood cell 12.9, platelets 17 creatinine 1.5, lactic acid 2.9, bilirubin 2.0, pro BNP [id number] Patient was admitted to cardiac stepdown unit however noted to be more hypotensive with systolics in the 70s to 80s and given 3 250 mL boluses with some mild improvement however transferred to ICU. REVIEW OF SYSTEMS At the time of my exam: Unable to obtain secondary to altered mental status. Apparently no complaints of chest pain or shortness breath prior to altered mental status. PHYSICAL EXAMINATION Vital signs reviewed. CONSTITUTIONAL: No apparent distress, chronically ill-appearing HEENT: Head is normocephalic. Pupils are equal, round. Sclerae anicteric. Mucous membranes of the mouth are moist. No JVD. No carotid bruit. CHEST EXAMINATION: Lungs are clear to auscultation. No chest wall tenderness is noted on palpation or with deep breathing. HEART EXAMINATION: Irregular rate and rhythm. S1, S2 heard. No murmurs, gallops or rub. ABDOMEN: Soft, nontender. Positive bowel sounds. EXTREMITIES: 2+ peripheral pulses, no lower extremity edema and no calf tenderness. NEUROLOGIC EXAMINATION: Patient is somnolent however arousable ASSESSMENT 1. Septic shock 2. Urosepsis 3. Chronic systolic heart failure 4. Paroxysmal atrial fibrillation, currently sinus rhythm 5. History of cardiomyopathy EF 30-35% status post AICD 6. Reported history of CAD and FL in the past 7. Altered mental status appears related to sepsis 8. Myelodysplastic syndrome, not good anticoagulation candidate 9. Recent weight loss PLAN Majority of presentation appears related to sepsis and appears to be improving with IV fluid supplementation. Does not appear volume overloaded and continue with gentle IV fluids, pressors as needed. Check 2-D echo to evaluate left ventricular function. Monitor blood counts including hemoglobin and platelets. Monitor response to antibiotic therapy. No significant angina-type symptoms. Monitor closely, prognosis guarded. Past Medical History Past Medical History: Atrial Flutter, Cancer, Heart Failure, CVA/TIA, Deep Vein Thrombosis (DVT), Hyperlipidemia, Myocardial Infarction ([place]), Rheumatoid Arthritis (RA), Sleep Apnea/CPAP/BIPAP Additional Past Medical History / Comment(s): prostate cancer, back pain, hx blood clot rt elbow, hiatal hernia, myelodysplatic syndrome Last Myocardial Infarction Date:: 1996 History of Any Multi-Drug Resistant Organisms: None Reported Past Surgical History: Joint Replacement, Pacemaker, Prostate Surgery Additional Past Surgical History / Comment(s): blood clot rt elbow surgically r emoved, pacemaker defibrillator-"[employer] model [id number] placed 2009", dustin. cataract surgery, dustin. hip replacements Past Anesthesia/Blood Transfusion Reactions: No Reported Reaction Type of Cardiac Device: AICD Device Placement Date:: 2009 Past Psychological History: No Psychological Hx Reported Smoking Status: Former smoker Past Alcohol Use History: None Reported Additional Past Alcohol Use History / Comment(s): "QUIT YEARS AGO" Past Drug Use History: None Reported - Past Family History Father Family Medical History: Cancer Daughter(s) Additional Family Medical History / Comment(s): 2 miscarriages, 2 D/C, Medications and Allergies Home Medications Medication Instructions Recorded Confirmed Type Furosemide [Lasix] 20 mg PO DAILY 05/13/18 06/07/23 History Potassium Chloride [Klor-Con 10 ER] 10 meq PO DAILY 05/13/18 06/07/23 History Cholecalciferol [Vitamin D3 (25 75 mcg PO DAILY 06/30/22 06/07/23 History Mcg = 1000 Iu)] Cyanocobalamin (Vitamin B-12) 1,000 mcg PO DAILY 06/30/22 06/07/23 History [Vitamin B-12] Acetaminophen Tab [Tylenol Tab] 1,000 mg PO Q8H 06/07/23 06/07/23 History Carbidopa/Levodopa [Sinemet 25-100 1 tab PO QID 06/07/23 06/07/23 History mg] Collagenase [Santyl Ointment] 1 applic TOPICAL DAILY 06/07/23 06/07/23 History Furosemide [Lasix] 40 mg PO DAILY PRN 06/07/23 06/07/23 History Nitroglycerin Sl Tabs [Nitrostat] 0.4 mg SUBLINGUAL Q5M PRN 06/07/23 06/07/23 History Sennosides [Senokot] 17.2 tab PO DAILY 06/07/23 06/07/23 History carvediloL [Coreg] 3.125 mg PO BID 06/07/23 06/07/23 History traZODone HCL [Desyrel] 25 mg PO Q3H PRN 06/07/23 06/07/23 History traZODone HCL [Desyrel] 50 mg PO HS 06/07/23 06/07/23 History Allergies Allergy/AdvReac Type Severity Reaction Status Date / Time No Known Allergies Allergy Verified 06/07/23 11:36 Physical Exam Vitals: Vital Signs Temp Pulse Pulse Pulse Resp BP BP 06/07/23 15:00 87 12 99/50 06/07/23 14:45 89 18 84/43 06/07/23 14:30 86 19 90/54 06/07/23 14:15 85 22 82/49 06/07/23 14:00 81 30 H 97/63 06/07/23 13:45 86 26 H 89/51 06/07/23 13:30 80 25 H 97/49 06/07/23 13:15 89 16 91/53 06/07/23 13:05 78 29 H 06/07/23 13:01 98.4 F 91 20 06/07/23 10:52 63 18 79/55 06/07/23 10:06 92 85/56 06/07/23 09:45 89/52 06/07/23 09:20 98.5 F 92 17 92/54 06/07/23 08:50 89/45 06/07/23 08:35 89/50 06/07/23 08:20 97/52 06/07/23 08:10 81/48 06/07/23 07:51 79/50 06/07/23 07:45 90/51 06/07/23 07:40 87/49 06/07/23 07:35 87/79 06/07/23 07:30 84/47 06/07/23 07:25 79/40 06/07/23 07:15 81/48 06/07/23 07:04 95/58 06/07/23 06:36 97.4 F L 94 12 76/48 06/07/23 06:05 93/56 06/07/23 05:45 77/38 06/07/23 03:50 98.0 F 81 16 86/48 06/07/23 03:49 98.0 F 91 16 82/49 06/07/23 03:15 91 10 L 86/52 06/07/23 03:08 99.2 F 94 12 79/59 Pulse Ox 06/07/23 15:00 96 06/07/23 14:45 97 06/07/23 14:30 96 06/07/23 14:15 06/07/23 14:00 98 06/07/23 13:45 96 06/07/23 13:30 95 06/07/23 13:15 98 06/07/23 13:05 97 06/07/23 13:01 96 06/07/23 10:52 95 06/07/23 10:06 06/07/23 09:45 06/07/23 09:20 94 L 06/07/23 08:50 06/07/23 08:35 06/07/23 08:20 06/07/23 08:10 06/07/23 07:51 06/07/23 07:45 06/07/23 07:40 06/07/23 07:35 06/07/23 07:30 06/07/23 07:25 06/07/23 07:15 06/07/23 07:04 06/07/23 06:36 100 06/07/23 06:05 06/07/23 05:45 06/07/23 03:50 100 06/07/23 03:49 100 06/07/23 03:15 97 06/07/23 03:08 94 L Intake and Output 06/07/23 06/07/23 06/07/23 06:59 14:59 22:59 Intake Total 60 20 Output Total 100 35 Balance -40 -15 Intake: IV 60 20 0.9 Sodium Chloride 60 20 Output: Urine 100 35 Other: Voiding Method Diaper Indwelling Catheter # Voids 0 Weight 62.5 kg Results 06/07/23 03:16 06/07/23 03:16 Cardiac Enzymes 06/07/23 06/07/23 Range/Units 03:16 12:30 AST 59 (17-59) U/L Lactate Dehydrogenase 442 H (120-246) U/L Coagulation 06/07/23 Range/Units 03:16 PT 11.5 (9.0-12.0) sec CBC 06/07/23 Range/Units 03:16 WBC 12.9 H (3.8-10.6) k/uL RBC 2.02 L (4.30-5.90) m/uL Hgb 8.4 L (13.0-17.5) gm/dL Hct 25.4 L (39.0-53.0) % Plt Count 17 L* (150-450) k/uL Comprehensive Metabolic Panel 06/07/23 Range/Units 03:16 Sodium 132 L (137-145) mmol/L Potassium 4.7 (3.5-5.1) mmol/L Chloride 99 (98-107) mmol/L Carbon Dioxide 25 (22-30) mmol/L BUN 50 H (9-20) mg/dL Creatinine 1.56 H (0.66-1.25) mg/dL Glucose 123 H (74-99) mg/dL Calcium 9.0 (8.4-10.2) mg/dL AST 59 (17-59) U/L ALT 12 (4-49) U/L Alkaline Phosphatase 62 (38-126) U/L Total Protein 5.9 L (6.3-8.2) g/dL Albumin 2.9 L (3.5-5.0) g/dL Current Medications Generic Name Dose Route Start Last Admin Trade Name Freq PRN Reason Stop Dose Admin Carbidopa/Levodopa 1 each 06/07/23 09:00 06/07/23 13:10 Carbidopa-Levodopa 25-100 Mg 1 Each Tab PO Not Given QID SHAHID Piperacillin Sod/Tazobactam 100 mls @ 25 mls/hr 06/07/23 16:00 Sod 3.375 gm/ Sodium Chloride IVPB Q8HR [facility] Protocol Pantoprazole Sodium 40 mg 06/07/23 09:00 06/07/23 09:47 Pantoprazole 40 Mg/10 Ml Vial IVP 40 mg DAILY SHAHID Administration Intake and Output 06/07/23 06/07/23 06/07/23 06:59 14:59 22:59 Intake Total 60 20 Output Total 100 35 Balance -40 -15 Intake: IV 60 20 0.9 Sodium Chloride 60 20 Output: Urine 100 35 Other: Voiding Method Diaper Indwelling Catheter # Voids 0 Weight 62.5 kg 06/07/23 03:16 06/07/23 03:16
[2023-06-07] MEDS ORDERED: SODIUM CHLORIDE 0.9% 500 ML 500 ML IV ONE ×2 (16:34→23:38)
[2023-06-07] MEDS: PIPERACILLIN-TAZOBACTAM 3.375 GM in SODIUM CHLORIDE 0.9% 100 ML IVPB SCH ×2 (16:40→23:28)
[2023-06-07] MEDS: SODIUM CHLORIDE 0.9% 500 ML 500 ML IV SCH (17:43)
--- NOTE | 2023-06-07 20:06 | P.NPCON ---
History of Present Illness - Reason for Consult acute renal failure - History of Present Illness Patient is an 83-year-old male with history of chronic A. fib, CVA, DVT and cardiomyopathy with ejection fraction of 35% along with myelodysplastic syndrome. Patient was transferred from [facility] due to complexity of his illness. He presented to my letter with complaints of increased weakness. He was also short of breath. Patient was noted to have evidence of pulmonary vascular congestion on chest x- ray. Hemoglobin was low at 8.4 with platelet count of 17,000. Creatinine was 1.56 and patient was transferred to [facility]. Next Patient developed significant hypotension while on the telemetry floor and was therefore transferred to the ICU. He has received fluid boluses and his systolic blood pressure is currently about 95-100 mmHg. Not started on pressors yet. No fever noted. Empiric antibiotics have been started. UA is suggestive of UTI. Computed tomography scan of the abdomen shows no evidence of obstructive uropathy. Serum creatinine is 1.5 with previous creatinine at 1.14 on 12/04/2022 Urine output at about 30-35 mL per hour. Chest x-ray does not show pulmonary vascular congestion. Review of Systems As per HPI Past Medical History Past Medical History: Atrial Flutter, Cancer, Heart Failure, CVA/TIA, Deep Vein Thrombosis (DVT), Hyperlipidemia, Myocardial Infarction ([place]), Rheumatoid Arthr itis ([place]), Sleep Apnea/CPAP/BIPAP Additional Past Medical History / Comment(s): prostate cancer, back pain, hx blood clot rt elbow, hiatal hernia, myelodysplatic syndrome Last Myocardial Infarction Date:: 1996 History of Any Multi-Drug Resistant Organisms: None Reported Past Surgical History: Joint Replacement, Pacemaker, Prostate Surgery Additional Past Surgical History / Comment(s): blood clot rt elbow surgically removed, pacemaker defibrillator-"[employer] model [id number] placed 2009", dustin. cataract surgery, dustin. hip replacements Past Anesthesia/Blood Transfusion Reactions: No Reported Reaction Type of Cardiac Device: AICD Device Placement Date:: 2009 Past Psychological History: No Psychological Hx Reported Smoking Status: Former smoker Past Alcohol Use History: None Reported Additional Past Alcohol Use History / Comment(s): "QUIT YEARS AGO" Past Drug Use History: None Reported - Past Family History Father Family Medical History: Cancer Daughter(s) Additional Family Medical History / Comment(s): 2 miscarriages, 2 D/C, Medications and Allergies Home Medications Medication Instructions Recorded Confirmed Type Furosemide [Lasix] 20 mg PO DAILY 05/13/18 06/07/23 History Potassium Chloride [Klor-Con 10 ER] 10 meq PO DAILY 05/13/18 06/07/23 History Cholecalciferol [Vitamin D3 (25 75 mcg PO DAILY 06/30/22 06/07/23 History Mcg = 1000 Iu)] Cyanocobalamin (Vitamin B-12) 1,000 mcg PO DAILY 06/30/22 06/07/23 History [Vitamin B-12] Acetaminophen Tab [Tylenol Tab] 1,000 mg PO Q8H 06/07/23 06/07/23 History Carbidopa/Levodopa [Sinemet 25-100 1 tab PO QID 06/07/23 06/07/23 History mg] Collagenase [Santyl Ointment] 1 applic TOPICAL DAILY 06/07/23 06/07/23 History Furosemide [Lasix] 40 mg PO DAILY PRN 06/07/23 06/07/23 History Nitroglycerin Sl Tabs [Nitrostat] 0.4 mg SUBLINGUAL Q5M PRN 06/07/23 06/07/23 History Sennosides [Senokot] 17.2 tab PO DAILY 06/07/23 06/07/23 History carvediloL [Coreg] 3.125 mg PO BID 06/07/23 06/07/23 History traZODone HCL [Desyrel] 25 mg PO Q3H PRN 06/07/23 06/07/23 History traZODone HCL [Desyrel] 50 mg PO HS 06/07/23 06/07/23 History Allergies Allergy/AdvReac Type Severity Reaction Status Date / Time No Known Allergies Allergy Verified 06/07/23 11:36 Physical Exam Vitals: Vital Signs Temp Pulse Pulse Pulse Resp BP BP 06/07/23 19:00 85 22 97/57 06/07/23 18:30 89 24 95/54 06/07/23 18:00 87 16 91/60 06/07/23 17:30 82 25 H 85/51 06/07/23 17:00 85 18 96/62 06/07/23 16:30 94 29 H 103/58 06/07/23 16:00 98.5 F 82 14 88/56 06/07/23 15:30 86 15 83/50 06/07/23 15:00 87 12 99/50 06/07/23 14:45 89 18 84/43 06/07/23 14:30 86 19 90/54 06/07/23 14:15 85 22 82/49 06/07/23 14:00 81 30 H 97/63 06/07/23 13:45 86 26 H 89/51 06/07/23 13:30 80 25 H 97/49 06/07/23 13:15 89 16 91/53 06/07/23 13:05 78 29 H 06/07/23 13:01 98.4 F 91 20 06/07/23 10:52 63 18 79/55 06/07/23 10:06 92 85/56 06/07/23 09:45 89/52 06/07/23 09:20 98.5 F 92 17 92/54 06/07/23 08:50 89/45 06/07/23 08:35 89/50 06/07/23 08:20 97/52 06/07/23 08:10 81/48 06/07/23 07:51 79/50 06/07/23 07:45 90/51 06/07/23 07:40 87/49 06/07/23 07:35 87/79 06/07/23 07:30 84/47 06/07/23 07:25 79/40 06/07/23 07:15 81/48 06/07/23 07:04 95/58 06/07/23 06:36 97.4 F L 94 12 76/48 06/07/23 06:05 93/56 06/07/23 05:45 77/38 06/07/23 03:50 98.0 F 81 16 86/48 06/07/23 03:49 98.0 F 91 16 82/49 06/07/23 03:15 91 10 L 86/52 06/07/23 03:08 99.2 F 94 12 79/59 Pulse Ox 06/07/23 19:00 92 L 06/07/23 18:30 94 L 06/07/23 18:00 98 06/07/23 17:30 97 06/07/23 17:00 95 06/07/23 16:30 97 06/07/23 16:00 99 06/07/23 15:30 96 06/07/23 15:00 96 06/07/23 14:45 97 06/07/23 14:30 96 06/07/23 14:15 06/07/23 14:00 98 06/07/23 13:45 96 06/07/23 13:30 95 06/07/23 13:15 98 06/07/23 13:05 97 06/07/23 13:01 96 06/07/23 10:52 95 06/07/23 10:06 06/07/23 09:45 06/07/23 09:20 94 L 06/07/23 08:50 06/07/23 08:35 06/07/23 08:20 06/07/23 08:10 06/07/23 07:51 06/07/23 07:45 06/07/23 07:40 06/07/23 07:35 06/07/23 07:30 06/07/23 07:25 06/07/23 07:15 06/07/23 07:04 06/07/23 06:36 100 06/07/23 06:05 06/07/23 05:45 06/07/23 03:50 100 06/07/23 03:49 100 06/07/23 03:15 97 06/07/23 03:08 94 L Intake and Output 06/07/23 06/07/23 06/07/23 06:59 14:59 22:59 Intake Total 60 1060 Output Total 100 145 Balance -40 915 Intake: IV 60 1060 0.9 Sodium Chloride 60 560 Sodium Chloride 0.9% 500 500 ml 500 ml @ 999 mls/hr IV .Q31M ONE Rx#:[id number] Output: Urine 100 145 Other: Voiding Method Diaper Indwelling Catheter Indwelling Catheter # Voids 0 Weight 62.5 kg Patient is awake, comfortable, in no acute distress Examination of the heart S1 and S2 Examination of the lungs decreased breath sounds at the bases Abdomen is soft nontender Examination lower extremity shows trace edema bilaterally [employer] exam grossly intact Results - Lab Results Most recent lab results Calcium 9.0 mg/dL (8.4-10.2) 06/07/23 03:16 Magnesium 2.0 mg/dL (1.6-2.3) 06/07/23 03:16 07/23/23 03:16 06/07/23 03:16 Assessment and Plan Assessment: 1. Acute kidney injury secondary to hemodynamic ATN currently nonoliguric. UA is suggestive of UTI CT of the abdomen shows no evidence of obstructive uropathy 2. Septic shock from UTI 3. Cardiomyopathy with ejection fraction of 35% 4. Chronic systolic CHF currently not in failure 5. Mental status changes secondary to underlying sepsis and infection 6. Paroxysmal A. fib 7. History of myelodysplastic syndrome with thrombocytopenia and anemia [place] at no active bleeding noted. Plan: Patient has received IV fluid boluses. Continue off of IV fluids as long as he remains hemodynamically stable. Continue with IV antibiotics Repeat labs in a.m. Continue to avoid nephrotoxic agents. Thank you for the consultation. We will continue to follow the patient with you during his hospitalization.
--- NOTE | 2023-06-07 23:09 | P.CONS ---
History of Present Illness - Reason for Consult Consult date: 06/07/23 Sepsis, infection UTI Requesting physician: Ritchie Armas - Chief Complaint Weakness x few days - History of Present Illness Patient is a 83-year-old male with a past medical history significant for heart failure with EF of 35% atrial flutter sleep apnea rheumatoid arthritis patient initially presented to outside facility for the patient comes symptoms of lethargy and the patient was noticed to be mostly confused and weak could not stand up to go to the bathroom patient was subsequently well elevated by EMS and taken to [facility] with the patient has been admitted for 2 days patient has been treated with antibiotic concerning for UTI however the patient did not have any significant improvement patient subsequently has been transferred to [facility] ICU for further evaluation and treatment patient on presentation to this facility did have a low-grade fever of 99.2 degrees following right patient was mildly tachycardic and hypotensive however not hypoxic or need for supplemental oxygen patient did have white count of 12.9 with a left shift did have elevated lactic acid BUN/creatinine has been elevated liver enzymes are normal did have a significantly positive UA patient also have a CT of abdominal pelvis cardiomegaly with interlobular septal thickening small effusion suggestive of congestive heart failure mild colonic stool burden gallbladder wall thickening patient was switched over to Zosyn infectious was consulted for further management of antibiotic therapy Review of Systems Positive points has been mentioned in HPI complete review could not be obtained because of his underlying mental status Past Medical History Past Medical History: Atrial Flutter, Cancer, Heart Failure, CVA/TIA, Deep Vein Thrombosis (DVT), Hyperlipidemia, Myocardial Infarction ([place]), Rheumatoid Arthritis ([place]), Sleep Apnea/CPAP/BIPAP Additional Past Medical History / Comment(s): prostate cancer, back pain, hx blood clot rt elbow, hiatal hernia, myelodysplatic syndrome Last Myocardial Infarction Date:: 1996 History of Any Multi-Drug Resistant Organisms: None Reported Past Surgical History: Joint Replacement, Pacemaker, Prostate Surgery Additional Past Surgical History / Comment(s): blood clot rt elbow surgically removed, pacemaker defibrillator-"[employer] model [id number] placed 2009", dustin. cataract surgery, dustin. hip replacements Past Anesthesia/Blood Transfusion Reactions: No Reported Reaction Type of Cardiac Device: AICD Device Placement Date:: 2009 Past Psychological History: No Psychological Hx Reported Smoking Status: Former smoker Past Alcohol Use History: None Reported Additional Past Alcohol Use History / Comment(s): "QUIT YEARS AGO" Past Drug Use History: None Reported - Past Family History Father Family Medical History: Cancer Daughter(s) Additional Family Medical History / Comment(s): 2 miscarriages, 2 D/C, Medications and Allergies Home Medications Medication Instructions Recorded Confirmed Type Cholecalciferol [Vitamin D3 (25 75 mcg PO DAILY 06/30/22 06/07/23 History Mcg = 1000 Iu)] Cyanocobalamin (Vitamin B-12) 1,000 mcg PO DAILY 06/30/22 06/07/23 History [Vitamin B-12] Scopolamine 1 mg/72 Hr Patch 1 patch TRANSDERM Q72H #3 patch 06/12/23 Rx [TransDerm Scop] Allergies Allergy/AdvReac Type Severity Reaction Status Date / Time No Known Allergies Allergy Verified 06/07/23 11:36 Physical Exam Vitals: Vital Signs Temp Pulse Pulse Pulse Resp BP Pulse Ox 06/07/23 13:05 78 29 H 97 06/07/23 13:01 98.4 F 91 20 96 06/07/23 10:52 63 18 79/55 95 06/07/23 10:06 92 85/56 06/07/23 09:45 89/52 06/07/23 09:20 98.5 F 92 17 92/54 94 L 06/07/23 08:50 89/45 06/07/23 08:35 89/50 06/07/23 08:20 97/52 06/07/23 08:10 81/48 06/07/23 07:51 79/50 06/07/23 07:45 90/51 06/07/23 07:40 87/49 06/07/23 07:35 87/79 06/07/23 07:30 84/47 06/07/23 07:25 79/40 06/07/23 07:15 81/48 06/07/23 07:04 95/58 06/07/23 06:36 97.4 F L 94 12 76/48 100 06/07/23 06:05 93/56 06/07/23 05:45 77/38 06/07/23 03:50 98.0 F 81 16 86/48 100 06/07/23 03:49 98.0 F 91 16 82/49 100 06/07/23 03:15 91 10 L 86/52 97 06/07/23 03:08 99.2 F 94 12 79/59 94 L Intake and Output 06/06/23 06/07/23 06/07/23 22:59 06:59 14:59 Intake Total 40 Output Total 65 Balance -25 Intake: IV 40 0.9 Sodium Chloride 40 Output: Urine 65 Other: Voiding Method Diaper Diaper # Voids 0 Weight 62.5 kg GENERAL DESCRIPTION: Elderly male lying in bed, no distress. No tachypnea or accessory muscle of respiration use. HEENT: Shows Pallor , no scleral icterus. Oral mucous membrane is dry. NECK: Trachea central, no thyromegaly. LUNGS: Unlabored breathing. Decreased breath sound at the base HEART: S1, S2, regular rate and rhythm. No loud murmur ABDOMEN: Soft, mild distention and tenderness EXTREMITIES: No edema of feet. SKIN: No rash, no masses palpable. NEUROLOGICAL: The patient is lethargic orientation could not be determined Results CBC & Chem 7: 06/11/23 06:19 06/11/23 17:16 Labs: Abnormal Lab Results - Last 24 Hours (Table) 06/07/23 06/07/23 06/07/23 Range/Units 03:16 03:16 03:16 WBC 12.9 H (3.8-10.6) k/uL RBC 2.02 L (4.30-5.90) m/uL Hgb 8.4 L (13.0-17.5) gm/dL Hct 25.4 L (39.0-53.0) % MCV 126.0 H (80.0-100.0) fL MCH 41.6 H (25.0-35.0) pg RDW 15.6 H (11.5-15.5) % Plt Count 17 L* (150-450) k/uL Neutrophils # (Manual) 10.50 H (1.3-7.7) k/uL Metamyelocytes # (Man) 0.26 H (0) k/uL Myelocytes # (Manual) 0.13 H (0) k/uL Nucleated RBCs 1 H (0-0) /100 WBC Macrocytosis Marked A Sodium 132 L (137-145) mmol/L BUN 50 H (9-20) mg/dL Creatinine 1.56 H (0.66-1.25) mg/dL Glucose 123 H (74-99) mg/dL POC Glucose (mg/dL) (70-110) mg/dL Plasma Lactic Acid Jermaine 2.9 H* (0.7-2.0) mmol/L Total Bilirubin 2.0 H (0.2-1.3) mg/dL Lactate Dehydrogenase (120-246) U/L Total Protein 5.9 L (6.3-8.2) g/dL Albumin 2.9 L (3.5-5.0) g/dL Urine Protein (Negative) Urine Blood (Negative) Ur Leukocyte Esterase (Negative) Urine RBC (0-5) /hpf Urine WBC (0-5) /hpf Urine WBC Clumps (None) /hpf Urine Bacteria (None) /hpf 06/07/23 06/07/23 06/07/23 Range/Units 09:53 11:33 12:30 WBC (3.8-10.6) k/uL RBC (4.30-5.90) m/uL Hgb (13.0-17.5) gm/dL Hct (39.0-53.0) % MCV (80.0-100.0) fL MCH (25.0-35.0) pg RDW (11.5-15.5) % Plt Count (150-450) k/uL Neutrophils # (Manual) (1.3-7.7) k/uL Metamyelocytes # (Man) (0) k/uL Myelocytes # (Manual) (0) k/uL Nucleated RBCs (0-0) /100 WBC Macrocytosis Sodium (137-145) mmol/L BUN (9-20) mg/dL Creatinine (0.66-1.25) mg/dL Glucose (74-99) mg/dL POC Glucose (mg/dL) 130 H (70-110) mg/dL Plasma Lactic Acid Jermaine (0.7-2.0) mmol/L Total Bilirubin (0.2-1.3) mg/dL Lactate Dehydrogenase 442 H (120-246) U/L Total Protein (6.3-8.2) g/dL Albumin (3.5-5.0) g/dL Urine Protein 1+ H (Negative) Urine Blood Large H (Negative) Ur Leukocyte Esterase Large H (Negative) Urine RBC >182 H (0-5) /hpf Urine WBC >182 H (0-5) /hpf Urine WBC Clumps Many H (None) /hpf Urine Bacteria Occasional H (None) /hpf Assessment and Plan (1) Stage II pressure ulcer of sacral region Current Visit: Yes Status: Acute Code(s): L89.152 - PRESSURE ULCER OF SACRAL REGION, STAGE 2 SNOMED Code(s): 21449654302595 (2) UTI (urinary tract infection) Current Visit: Yes Status: Acute Priority: High Code(s): N39.0 - URINARY TRACT INFECTION, SITE NOT SPECIFIED SNOMED Code(s): 93209055 Plan: 1patient presented hospital with sepsis in this patient with low-grade fever tachycardia hypertension significantly positive UA likely concerning for UTI of enteric gram-negative pathogen apparently has not responded to the Rocephin at the outside facility concerning for possible resistant pathogen clinic and are behaving as pneumonia and no tenderness to the right upper quadrant area c linically doubt cholecystitis 2-patient to continue Zosyn while waiting for the culture to finalize 3-check inflammatory markers We will follow on clinical condition and cultures to further adjust medication if needed Thank you for this consultation we will follow the patient along with you Dictation was produced using [employer] dictation software. please excuse any grammatical, word or spelling errors. Time with Patient: Greater than 30
[2023-06-07] MEDS ORDERED: FUROSEMIDE 10 MG/ML 2 ML VIAL IV ONE (23:40)
[2023-06-08] LABS: % Iron Saturation 30.92 (15.00-50.00); Iron 64 UG/DL (65-175); Total Iron Binding Capacity 207 UG/DL (228-460)
[2023-06-08 00:29] LABS: Vitamin B12 >3600.0 pg/mL (200.0-944.0)
[2023-06-08] MEDS: NOREPINEPHRINE 4 MG in SODIUM CHLORIDE 0.9% 250 ML IV SCH (04:08)
[2023-06-08 06:15] LABS: HCT 26.2 % (39.0-53.0); HGB 8.3 gm/dL (13.0-17.5); Hypochromasia Marked; MCH 41.1 pg (25.0-35.0); MCHC 31.9 g/dL (31.0-37.0); Macrocytosis Marked; Mean Platelet Volume 15.6; RBC 2.03 m/uL (4.30-5.90); RDW 15.4 % (11.5-15.5)
[2023-06-08 06:22] LABS: Platelet Count 27 k/uL (150-450)
[2023-06-08 06:34] LABS: African American GFR (CKD) 54 (>60 ml/min/1.73 sqM); Anion Gap 11 mmol/L; Blood Urea Nitrogen 51 mg/dL (9-20); Calcium 8.4 mg/dL (8.4-10.2); Carbon Dioxide 21 mmol/L (22-30); Chloride 105 mmol/L (98-107); Glucose 119 mg/dL (74-99); Non-African American GFR(CKD) 46 (>60 ml/min/1.73 sqM); Potassium 4.5 mmol/L (3.5-5.1); Sodium 137 mmol/L (137-145)
[2023-06-08 06:37] LABS: Band Neutrophils % 35 %; Lymphocytes # (M) 1.97 k/uL (1.0-4.8); Metamyelocytes # (M) 0.66 k/uL (0); Metamyelocytes % 5 %; Monocytes # (M) 0.26 k/uL (0-1.0); Myelocytes # (M) 2.23 k/uL (0); Myelocytes % 17 %; Neutrophils % (M) 24 %; Nucleated Red Blood Cells 5 /100 WBC (0-0); Promyelocytes # (M) 0.26 k/uL (0); Promyelocytes % 2 %; Total Cells Counted 200; WBC 13.1 k/uL (3.8-10.6)
[2023-06-08 06:38] LABS: Polychromasia Present; Toxic Granulation Present; Toxic Vacuolation Present
[2023-06-08] MEDS: PIPERACILLIN-TAZOBACTAM 3.375 GM in SODIUM CHLORIDE 0.9% 100 ML IVPB SCH ×2 (07:18→17:27)
--- NOTE | 2023-06-08 07:24 | P.CONS ---
History of Present Illness - Reason for Consult Consult date: 06/07/23 anemia Requesting physician: Agapito Jackson - Chief Complaint altered mental status - History of Present Illness Patient is an 82 year male with a history of prostate cancer and MDS. He is a patient of Dr. Caesar Spencer. Patient was referred to our clinic for evaluation of pancytopenia. He was noted to have mild thrombocytopenia at that time ranging from the 110s-130s. However, the thrombocytopenia began to worsen. He had labs done through his PCP on 06/06 noting pancytopenia with WBC 2.7 (ANC 1.5), Hgb 11.5 (MCV 103.4), and platelet count 38. CMP revealed no metabolic abnormalities, including normal total bilirubin. Folic acid (17.5) and vitamin B12 (> 2000) were both within normal range. He did have an episode of prolonged bleeding in the right forearm due to a cut on 06/19/22, which required ED visit at [facility] and had dermaplast to stop bleeding. Coumadin was last taken on 06/22/22, which was stopped by his PCP. Flecanide was stopped by his cardiologi st on 06/25/22. Flow cytometry on 06/17/22 revealed no monoclonal population of cells with 1% myeloblasts positive for CD13, CD33, CD34, CD117, and HLA DR. BM biopsy on 06/2022 revealed MDS with EB-1 and IPSS-R score of 5, consistent with high risk disease. He also has ASXL1 and SRSF2 mutations, associated with poor prognosis. He has an overall poor prognosis with median OS 1.6 years. We have been pursuing a strategy of supportive care with transfusions as needed, which he has has required 1 transfusion of packed red blood cells in November 2022 due to symptomatic anemia with chest pain, and has had multiple hospitalizations since. Based on his overall performance status with an ECOG of 3-4, we r ecommended consideration for palliative care and hospice to increase his quality of life and prevent recurrent admissions that would likely provide little long- term benefit. His stated that she believed the patient has improved compared to when he first arrived home from his last hospitalization and would like to continue medical management. From a hematology perspective, he does not require transfusions, nor do I think transfusions would be beneficial at this time. We did discuss the risks for transfusion reactions such as TRALI or TACO. Patient initially presented to the emergency room at [facility] for altered mental status and increased weakness. He was diagnosed with UTI and was found to be anemic with a hemoglobin of 7.9. He was thus transferred to [facility] for further medical management. Upon admission hemoglobin was 8.4, WBC 12.9, platelets 17,000. Lactic acid elevated at 2.9. LFTs WNL. Bilirubin elevated at 2.0. PT/INR WNL. BNP elevated, 31,900. Blood and urine cultures pending. Chest x-ray revealed no change from prior exam. No acute pulmonary pathology. CT head revealed mildly dilated ventricular system which appears similar to prior examination. No acute intracranial hemorrhage. Nonspecific white matter changes. CT abdomen pelvis showed retained contrast within both kidneys and collecting system suggestive of of ATN. Cardiomegaly with intralobular septal thickening, small bilateral pleural effusions and diffuse anasarca suggestive of CHF exacerbation/volume overload. Vicarious excretion of contrast within the gallbladder with gallbladder wall thickening. Mild colonic stool burden. Ultrasound gallbladder revealed gallbladder sludge with trace pericholecystic fluid. No wall thickening or positive sonographic Lopez sign to suggest acute cholecystitis. At today's visit patient seen in the ICU. Blood pressures are soft and remains on pressors. Patient remains confused and is mumbling. states that since his last admission in February he has been improving at home and has been able to ambulate with a walker. But states on Thursday he began to have progressive weakness and increased confusion which caused him to present to the ER for further evaluation. She denies any acute episodes of bleeding. Review of Systems 10 point ROS is negative except as stated in the HPI Past Medical History Past Medical History: Atrial Flutter, Cancer, Heart Failure, CVA/TIA, Deep Vein Thrombosis (DVT), Hyperlipidemia, Myocardial Infarction (TN), Rheumatoid Arthritis (RA), Sleep Apnea/CPAP/BIPAP Additional Past Medical History / Comment(s): prostate cancer, back pain, hx blood clot rt elbow, hiatal hernia, myelodysplatic syndrome Last Myocardial Infarction Date:: 1996 History of Any Multi-Drug Resistant Organisms: None Reported Past Surgical History: Joint Replacement, Pacemaker, Prostate Surgery Additional Past Surgical History / Comment(s): blood clot rt elbow surgically removed, pacemaker defibrillator-"[employer] model [id number] placed 2009", dustin. cataract surgery, dustin. hip replacements Past Anesthesia/Blood Transfusion Reactions: No Reported Reaction Type of Cardiac Device: AICD Device Placement Date:: 2009 Past Psychological History: No Psychological Hx Reported Smoking Status: Former smoker Past Alcohol Use History: None Reported Additional Past Alcohol Use History / Comment(s): "QUIT YEARS AGO" Past Drug Use History: None Reported - Past Family History Father Family Medical History: Cancer Daughter(s) Additional Family Medical History / Comment(s): 2 miscarriages, 2 D/C, Medications and Allergies Home Medications Medication Instructions Recorded Confirmed Type Furosemide [Lasix] 20 mg PO DAILY 05/13/18 06/07/23 History Potassium Chloride [Klor-Con 10 ER] 10 meq PO DAILY 05/13/18 06/07/23 History Cholecalciferol [Vitamin D3 (25 75 mcg PO DAILY 06/30/22 06/07/23 History Mcg = 1000 Iu)] Cyanocobalamin (Vitamin B-12) 1,000 mcg PO DAILY 06/30/22 06/07/23 History [Vitamin B-12] Acetaminophen Tab [Tylenol Tab] 1,000 mg PO Q8H 06/07/23 06/07/23 History Carbidopa/Levodopa [Sinemet 25-100 1 tab PO QID 06/07/23 06/07/23 History mg] Collagenase [Santyl Ointment] 1 applic TOPICAL DAILY 06/07/23 06/07/23 History Furosemide [Lasix] 40 mg PO DAILY PRN 06/07/23 06/07/23 History Nitroglycerin Sl Tabs [Nitrostat] 0.4 mg SUBLINGUAL Q5M PRN 06/07/23 06/07/23 History Sennosides [Senokot] 17.2 tab PO DAILY 06/07/23 06/07/23 History carvediloL [Coreg] 3.125 mg PO BID 06/07/23 06/07/23 History traZODone HCL [Desyrel] 25 mg PO Q3H PRN 06/07/23 06/07/23 History traZODone HCL [Desyrel] 50 mg PO HS 06/07/23 06/07/23 History Allergies Allergy/AdvReac Type Severity Reaction Status Date / Time No Known Allergies Allergy Verified 06/07/23 11:36 Physical Exam Vitals: Vital Signs Temp Pulse Pulse Resp BP Pulse Ox 07/23/23 10:52 63 18 79/55 95 06/07/23 10:06 92 85/56 06/07/23 09:45 89/52 06/07/23 09:20 98.5 F 92 17 92/54 94 L 06/07/23 08:50 89/45 06/07/23 08:35 89/50 06/07/23 08:20 97/52 06/07/23 08:10 81/48 06/07/23 07:51 79/50 06/07/23 07:45 90/51 06/07/23 07:40 87/49 06/07/23 07:35 87/79 06/07/23 07:30 84/47 06/07/23 07:25 79/40 06/07/23 07:15 81/48 06/07/23 07:04 95/58 06/07/23 06:36 97.4 F L 94 12 76/48 100 06/07/23 06:05 93/56 06/07/23 05:45 77/38 06/07/23 03:50 98.0 F 81 16 86/48 100 06/07/23 03:49 98.0 F 91 16 82/49 100 06/07/23 03:15 91 10 L 86/52 97 06/07/23 03:08 99.2 F 94 12 79/59 94 L Intake and Output 06/06/23 06/07/23 06/07/23 22:59 06:59 14:59 Other: Voiding Method Diaper Diaper # Voids 0 Weight 62.5 kg - Constitutional General appearance: average body habitus, no acute distress - Respiratory Respiratory: bilateral: CTA - Cardiovascular Rhythm: regular Heart sounds: normal: S1, S2 Abnormal Heart Sounds: no systolic murmur, no diastolic murmur, no rub, no S3 Gallop, no S4 Gallop, no click, no other leg Peripheral Edema: bilateral: None - Gastrointestinal General gastrointestinal: soft, no tenderness - Integumentary Integumentary: jaundiced - Musculoskeletal Musculoskeletal: generalized weakness - Psychiatric confused, A&Ox0 Results CBC & Chem 7: 06/08/23 06:03 06/08/23 06:03 Labs: Abnormal Lab Results - Last 24 Hours (Table) 07/06/07/23 06/07/23 Range/Units 03:16 03:16 03:16 WBC 12.9 H (3.8-10.6) k/uL RBC 2.02 L (4.30-5.90) m/uL Hgb 8.4 L (13.0-17.5) gm/dL Hct 25.4 L (39.0-53.0) % MCV 126.0 H (80.0-100.0) fL MCH 41.6 H (25.0-35.0) pg RDW 15.6 H (11.5-15.5) % Plt Count 17 L* (150-450) k/uL Neutrophils # (Manual) 10.50 H (1.3-7.7) k/uL Metamyelocytes # (Man) 0.26 H (0) k/uL Myelocytes # (Manual) 0.13 H (0) k/uL Nucleated RBCs 1 H (0-0) /100 WBC Macrocytosis Marked A Sodium 132 L (137-145) mmol/L BUN 50 H (9-20) mg/dL Creatinine 1.56 H (0.66-1.25) mg/dL Glucose 123 H (74-99) mg/dL POC Glucose (mg/dL) (70-110) mg/dL Plasma Lactic Acid Jermaine 2.9 H* (0.7-2.0) mmol/L Total Bilirubin 2.0 H (0.2-1.3) mg/dL Total Protein 5.9 L (6.3-8.2) g/dL Albumin 2.9 L (3.5-5.0) g/dL Urine Protein (Negative) Urine Blood (Negative) Ur Leukocyte Esterase (Negative) Urine RBC (0-5) /hpf Urine WBC (0-5) /hpf Urine WBC Clumps (None) /hpf Urine Bacteria (None) /hpf 06/07/23 06/07/23 Range/Units 09:53 11:33 WBC (3.8-10.6) k/uL RBC (4.30-5.90) m/uL Hgb (13.0-17.5) gm/dL Hct (39.0-53.0) % MCV (80.0-100.0) fL MCH (25.0-35.0) pg RDW (11.5-15.5) % Plt Count (150-450) k/uL Neutrophils # (Manual) (1.3-7.7) k/uL Metamyelocytes # (Man) (0) k/uL Myelocytes # (Manual) (0) k/uL Nucleated RBCs (0-0) /100 WBC Macrocytosis Sodium (137-145) mmol/L BUN (9-20) mg/dL Creatinine (0.66-1.25) mg/dL Glucose (74-99) mg/dL POC Glucose (mg/dL) 130 H (70-110) mg/dL Plasma Lactic Acid Jermaine (0.7-2.0) mmol/L Total Bilirubin (0.2-1.3) mg/dL Total Protein (6.3-8.2) g/dL Albumin (3.5-5.0) g/dL Urine Protein 1+ H (Negative) Urine Blood Large H (Negative) Ur Leukocyte Esterase Large H (Negative) Urine RBC >182 H (0-5) /hpf Urine WBC >182 H (0-5) /hpf Urine WBC Clumps Many H (None) /hpf Urine Bacteria Occasional H (None) /hpf Chest x-ray: report reviewed CT scan - abdomen: report reviewed CT Scan - head: report reviewed CT scan - pelvis: report reviewed US - abdomen: report reviewed Assessment and Plan (1) MDS (myelodysplastic syndrome), high grade Current Visit: Yes Status: Acute Priority: High Code(s): D46.Z - OTHER MYELODYSPLASTIC SYNDROMES SNOMED Code(s): 031508776 (2) UTI (urinary tract infection) Current Visit: Yes Status: Acute Priority: High Code(s): N39.0 - URINARY TRACT INFECTION, SITE NOT SPECIFIED SNOMED Code(s): 97912032 Plan: MDS: -Patient was referred to our clinic for evaluation of pancytopenia. He was noted to have mild thrombocytopenia at that time ranging from the 110s-130s. However, the thrombocytopenia began to worsen. He had labs done through his PCP on 06/06 noting pancytopenia with WBC 2.7 (ANC 1.5), Hgb 11.5 (MCV 103.4), and platelet count 38. CMP revealed no metabolic abnormalities, including normal total bilirubin. Folic acid (17.5) and vitamin B12 (> 2000) were both within normal range. He did have an episode of prolonged bleeding in the right forearm due to a cut on 06/19/22, which required ED visit at [facility] and had dermaplast to stop bleeding. Coumadin was last taken on 06/22/22, which was stopped by his PCP. Flecanide was stopped by his business planning director on 06/25/22. Flow cytometry on 07/07 revealed no monoclonal population of cells with 1% myeloblasts positive for CD13, CD33, CD34, CD117, and HLA DR. BM biopsy on 06/2022 revealed MDS with EB-1 and IPSS-R score of 5, consistent with high risk disease. He also has ASXL1 and SRSF2 mutations, associated with poor prognosis. He has an overall poor prognosis with median OS 1.6 years. -We have been pursuing a strategy of supportive care with transfusions as needed, which he has has required 1 transfusion of packed red blood cells in November 2022 due to symptomatic anemia with chest pain, and has had multiple hospitalizations since. Based on his overall performance status with an ECOG of 3-4, we recommended consideration for palliative care and hospice to increase his quality of life and prevent recurrent admissions that would likely provide little long-term benefit. His stated that she believed the patient has improved compared to when he first arrived home from his last hospitalization and would like to continue medical management. From a hematology perspective, he does not require transfusions, nor do I think transfusions would be beneficial at this time. We did discuss the risks for transfusion reactions such as TRALI or TACO. -Upon admission hemoglobin was 8.4, WBC 12.9, platelets 17,000. LFTs WNL. Bilirubin elevated at 2.0. PT/INR WNL. -Anemia and hemolysis workup ordered -Counts are similar to his previous CBCs, r/t his underlying MDS superimposed by acute infectious/inflammatory process. Will continue to monitor. Please transfuse for platelets less than 10,000, or hemoglobin less than 7 UTI/sepsis: -Continues on Zosyn. Blood and urine cultures pending -Defer to IM and ID team for medical management
[2023-06-08] MEDS: COLLAGENASE 250 UNIT/GM OINTMENT 30 GM TUBE TOPICAL SCH (08:23)
[2023-06-08] MEDS: PANTOPRAZOLE 40 MG/10 ML VIAL IVP SCH (08:24)
[2023-06-08] MEDS ORDERED: SODIUM CHLORIDE 0.9% 1,000 ML IV ONE (08:50)
--- NOTE | 2023-06-08 10:12 | P.PN ---
Subjective Progress Note Date: 06/08/23 Principal diagnosis: Sepsis, mental status changes. This is an 83-year-old white male with history of multiple medical problems including cardiomyopathy and LV dysfunction with ejection fraction of 35%. Chronic atrial fibrillation/flutter, history of CVA and deep vein thrombosis, history of rheumatoid arthritis, and history of myelodysplastic syndrome. Patient was admitted to [facility] in January with multiple medical issues, and he was in the hospital for about 3 weeks. Patient will eventually discharged home with home physical therapy/rehabilitation. According to the he does have history of dementia and Parkinson's disease and he does have chronic weakness, but his weakness in the last few days has been much worse. Patient was taken to [facility], and he was found to be anemic, thrombocytopenic, WBC count 12.9 hemoglobin 8.4 and platelets 17,000. Patient was also noted to have worsening renal status with creatinine of 1.56, chest x-ray suggestive of congestive heart failure, he has bilateral pleural effusions, he also has what seems to be a urinary tract infection with pyuria and bacteriuria noted in the urinalysis. CT of abdomen and pelvis showed mostly retained contrast within both kidneys suggestive of acute tubular necrosis, he was noted to have anasarca and bilateral pleural effusions suggestive of congestive heart failure/volume overload. Prior to coming to [facility], patient was seen at [facility] and supposedly he was therefore 2 days, and they were having difficulty with platelets transfusion mostly because of antibodies, hence arrangements were made to transfer the patient to [facility]. Patient had low marginal blood pressure. Looking at his blood pressure his mean has been ranging anywhere between 59 up to 66 since admission, he has very poor urine output, and he looks extremely frail, weak, and chronically ill. Hence I recommended transferring the patient to the ICU for close monitoring. Although I did discuss the CODE STATUS with the and daughter at bedside before transferring the patient to the ICU and clearly the patient had previously expressed wishes to have no CPR, no defibrillation, and no intubation/mechanical ventilation. Clearly his CODE STATUS is DO NOT RESUSCITATE I have suggested evaluation by different consultants including hematology for his myelodysplastic syndrome and transfusions of platelets I will also recommended cardiology to see the patient on consultation, nephrology and infectious disease. Overall prognostic picture seems to be extremely poor Progress note dated 06/08/2023. This is a 83-year-old male who was transferred down from an outside hospital. Patient has a history of multiple medical problems. He was transferred because of mental status changes, hypotension, and urinary tract infection. The patient is seen today in room 267, ICU. The patient's on room air. He is getting IV Zosyn. He is getting saline at KVO, and also norepinephrine at 3 mcg/m. The patient is a no code with instructions. I've asked the nurses to give him some additional fluids, to see if we can wean him off the norepinephrine. White count 13.1, hemoglobin 8.3, hematocrit 26.2, with a platelet count of 27,000. Sodium is 137, potassium 4.5, chlorides 105, CO2 21, BUN 51, creatinine 1.41. The patient's pro-calcitonin level is 3.76. Urine is suggestive of a urinary tract infection. The patient is currently on Zosyn. Objective - Vital Signs Vital signs: Vital Signs Temp 98.4 F 06/08/23 08:00 Pulse 89 06/08/23 10:00 Resp 14 06/08/23 10:00 BP 97/48 06/08/23 10:00 Pulse Ox 98 06/08/23 10:00 FiO2 Intake & Output 06/07/23 06/08/23 06/08/23 18:59 06:59 18:59 Intake Total 620 849.803 72.545 Output Total 215 580 100 Balance 405 269.803 -27.455 Weight 64.4 kg Intake: IV 620 840 40 0.9 Sodium Chloride 120 740 40 Piperacillin-Tazobactam 3 100 .375 gm In Sodium Chloride 0.9% 100 ml @ 25 mls/hr IVPB Q8HR [facility] Rx# :[id number] Sodium Chloride 0.9% 500 500 ml 500 ml @ 999 mls/hr IV .Q31M [facility] Rx#:[id number] Intake, IV Titration 9.803 32.545 Amount Norepinephrine 4 mg In 9.803 32.545 Sodium Chloride 0.9% 250 ml @ 0.03 MCG/KG/MIN 7. 144 mls/hr IV .Q24H [facility] Rx#:[id number] Output: Urine 215 580 100 Other: Voiding Method Indwelling Catheter Indwelling Catheter Indwelling Catheter - Exam No acute distress, very lethargic and somnolent, and poorly responsive. HEENT examination is grossly unremarkable. Neck supple. Full range of motion. No adenopathy thyromegaly or neck vein distention. Cardiovascular examination reveals regular rhythm rate. S1-S2 normal. No S3 or S4. No discernible murmur noted. Heart sounds distant. Heart rate 80 bpm. Lungs reveal scattered bilateral inspiratory and expiratory rhonchi. No wheezes or crackles. Breath sounds are equal. Saturations are 98% on room air. Abdomen soft without bowel sounds. No masses or tenderness. Extremities are intact. No cyanosis clubbing or edema. Skin is without rash or lesion. Multiple areas of ecchymoses noted. Neurologic examination is difficult to evaluate. - Labs CBC & Chem 7: 06/08/23 06:03 06/08/23 06:03 Labs: Abnormal Lab Results - Last 24 Hours (Table) 06/07/23 06/07/23 06/07/23 Range/Units 06:42 09:53 11:33 WBC (3.8-10.6) k/uL RBC (4.30-5.90) m/uL Hgb (13.0-17.5) gm/dL Hct (39.0-53.0) % MCV (80.0-100.0) fL MCH (25.0-35.0) pg Plt Count (150-450) k/uL Metamyelocytes # (Man) (0) k/uL Myelocytes # (Manual) (0) k/uL Promyelocytes # (Man) (0) k/uL Nucleated RBCs (0-0) /100 WBC Macrocytosis Retic Count (0.5-2.0) % Carbon Dioxide (22-30) mmol/L BUN (9-20) mg/dL Creatinine (0.66-1.25) mg/dL Glucose (74-99) mg/dL POC Glucose (mg/dL) 130 H (70-110) mg/dL Iron (65-175) UG/DL TIBC (228-460) UG/DL Transferrin (204.0-354.0) mg/dL Ferritin (22.0-322.0) ng/mL Lactate Dehydrogenase (120-246) U/L Vitamin B12 (200.0-944.0) pg/mL Procalcitonin 3.76 H (0.02-0.09) ng/mL Urine Protein 1+ H (Negative) Urine Blood Large H (Negative) Ur Leukocyte Esterase Large H (Negative) Urine RBC >182 H (0-5) /hpf Urine WBC >182 H (0-5) /hpf Urine WBC Clumps Many H (None) /hpf Urine Bacteria Occasional H (None) /hpf 06/07/23 06/07/23 06/08/23 Range/Units 12:30 12:30 06:03 WBC 13.1 H (3.8-10.6) k/uL RBC 2.03 L (4.30-5.90) m/uL Hgb 8.3 L (13.0-17.5) gm/dL Hct 26.2 L (39.0-53.0) % MCV 129.0 H (80.0-100.0) fL MCH 41.1 H (25.0-35.0) pg Plt Count 27 L D (150-450) k/uL Metamyelocytes # (Man) 0.66 H (0) k/uL Myelocytes # (Manual) 2.23 H (0) k/uL Promyelocytes # (Man) 0.26 H (0) k/uL Nucleated RBCs 5 H (0-0) /100 WBC Macrocytosis Marked A Retic Count 11.6 H (0.5-2.0) % Carbon Dioxide (22-30) mmol/L BUN (9-20) mg/dL Creatinine (0.66-1.25) mg/dL Glucose (74-99) mg/dL POC Glucose (mg/dL) (70-110) mg/dL Iron 64 L (65-175) UG/DL TIBC 207 L (228-460) UG/DL Transferrin 148.0 L (204.0-354.0) mg/dL Ferritin 1982.0 H (22.0-322.0) ng/mL Lactate Dehydrogenase 442 H (120-246) U/L Vitamin B12 >3600.0 H (200.0-944.0) pg/mL Procalcitonin (0.02-0.09) ng/mL Urine Protein (Negative) Urine Blood (Negative) Ur Leukocyte Esterase (Negative) Urine RBC (0-5) /hpf Urine WBC (0-5) /hpf Urine WBC Clumps (None) /hpf Urine Bacteria (None) /hpf 06/08/23 Range/Units 06:03 WBC (3.8-10.6) k/uL RBC (4.30-5.90) m/uL Hgb (13.0-17.5) gm/dL Hct (39.0-53.0) % MCV (80.0-100.0) fL MCH (25.0-35.0) pg Plt Count (150-450) k/uL Metamyelocytes # (Man) (0) k/uL Myelocytes # (Manual) (0) k/uL Promyelocytes # (Man) (0) k/uL Nucleated RBCs (0-0) /100 WBC Macrocytosis Retic Count (0.5-2.0) % Carbon Dioxide 21 L (22-30) mmol/L BUN 51 H (9-20) mg/dL Creatinine 1.41 H (0.66-1.25) mg/dL Glucose 119 H (74-99) mg/dL POC Glucose (mg/dL) (70-110) mg/dL Iron (65-175) UG/DL TIBC (228-460) UG/DL Transferrin (204.0-354.0) mg/dL Ferritin (22.0-322.0) ng/mL Lactate Dehydrogenase (120-246) U/L Vitamin B12 (200.0-944.0) pg/mL Procalcitonin (0.02-0.09) ng/mL Urine Protein (Negative) Urine Blood (Negative) Ur Leukocyte Esterase (Negative) Urine RBC (0-5) /hpf Urine WBC (0-5) /hpf Urine WBC Clumps (None) /hpf Urine Bacteria (None) /hpf Assessment and Plan Assessment: Hypotension, likely secondary to urinary tract infection, with urosepsis. Rule out bacteremia. Acute on chronic systolic congestive heart failure. Myelodysplastic syndrome. Acute urinary tract infection. History of rheumatoid arthritis. Dementia and Parkinson's disease, rule out Lewy body dementia. History of sick sinus syndrome, status post pacemaker implantation. Hyperlipidemia. Small bilateral pleural effusion. Acute kidney injury. Plan: Plan dated 06/08/2023. Patient is seen in the intensive care unit. The patient continues on norepinephrine at 3 mcg/m, because of hypotension, secondary to urinary tract infection, with urosepsis, and possible bacteremia. The patient is on room air. Patient continues on Zosyn. Additional recommendations and suggestions are forthcoming. The patient's overall prognosis remains guarded. The patient is a no code, with instructions. Time with Patient: Greater than 30
[2023-06-08] MEDS: CARBIDOPA-LEVODOPA 25-100 MG 1 EACH TAB PO SCH ×4 (10:32→23:24)
--- NOTE | 2023-06-08 10:56 | CA ---
Transthoracic Echo Report Name: Keshav Perry Age: 83 Gender: M : 1940 Exam Date: 06/08/2023 07:33 Exam Location: [facility] Ht (in): 69 Wt (lb): 137 Ordering Physician: Horacio Butler DO ([id number]) Attending/Referring Phys: Luke Leonard;[id number] [employer] Gloria Iqbal RDCS Procedure CPT: Indications: re: hypotension Cardiac Hx: Technical Quality: Good Contrast 1: Total Dose (mL): Contrast 2: Total Dose (mL): MEASUREMENTS (Male / Female) Normal Values 2D ECHO LV Diastolic Diameter PLAX 5.4 cm 4.2 - 5.9 / 3.9 - 5.3 cm LV Systolic Diameter PLAX 4.7 cm IVS Diastolic Thickness 1.1 cm 0.6 - 1.0 / 0.6 - 0.9 cm LVPW Diastolic Thickness 1.1 cm 0.6 - 1.0 / 0.6 - 0.9 cm LV Relative Wall Thickness 0.4 RV Internal Dim ED PLAX 3.1 cm LV Diastolic Volume MOD BP 176.1 cm??? 67 - 155 / 56 - 104 cm??? LV Systolic Volume MOD BP 128.0 cm??? 22 - 58 / 19 - 49 cm??? LV Ejection Fraction MOD BP 27.3 % >= 55 % LV Cardiac Index MOD BP 2389.4 cm???/min???m??? LV Diastolic Volume MOD 4C 177.9 cm??? LV Systolic Volume MOD 4C 119.4 cm??? LV Ejection Fraction MOD 4C 32.9 % LV Cardiac Index MOD 4C 2905.9 cm???/min???m??? LV Diastolic Length 4C 9.5 cm LV Systolic Length 4C 8.9 cm LV Diastolic Volume MOD 2C 174.6 cm??? LV Systolic Volume MOD 2C 131.5 cm??? LV Ejection Fraction MOD 2C 24.7 % LV Cardiac Index MOD 2C 2140.8 cm???/min???m??? LV Diastolic Length 2C 9.6 cm LV Systolic Length 2C 9.4 cm LA Volume 86.4 cm??? 18 - 58 / 22 - 52 cm??? M-MODE Aortic Root Diameter MM 3.1 cm MV E Point Septal Separation 1.5 cm AV Cusp Separation MM 1.8 cm DOPPLER AV Peak Velocity 122.5 cm/s AV Peak Gradient 6.0 mmHg AI Peak Velocity 309.3 cm/s AI Peak Gradient 38.3 mmHg AI Pressure Half Time 379.1 ms MV Area PHT 4.1 cm??? MR Peak Velocity 442.6 cm/s MR Peak Gradient 78.4 mmHg Mitral E Point Velocity 138.3 cm/s Mitral A Point Velocity 96.9 cm/s Mitral E to A Ratio 1.4 MV Deceleration Time 185.4 ms TR Peak Velocity 397.5 cm/s TR Peak Gradient 63.2 mmHg Right Ventricular Systolic Press 68.2 mmHg FINDINGS Left Ventricle Left ventricular ejection fraction is estimated at 25-30 %. Mildly increased left ventricular diastolic volume. Anteroapical and anteroseptal akinesis. Severely decreased left ventricular ejection fraction. Right Ventricle Normal right ventricular size. Severe pulmonary hypertension. Right ventricular systolic pressure estimated at 68 mm hg. a wire is noted in the right ventricle. Right Atrium Normal right atrial size. Left Atrium Severely increased left atrial volume. Mildly increased left atrial area. Mitral Valve Structurally normal mitral valve. Moderate to Severe mitral regurgitation. Mitral annular calcification. Aortic Valve Trileaflet aortic valve. [id number] aortic regurgitation. Aortic valve sclerosis. Tricuspid Valve Structurally normal tricuspid valve. [id number] tricuspid regurgitation. Pulmonic Valve Structurally normal pulmonic valve. No pulmonic regurgitation. Pericardium Normal pericardium. No pericardial effusion. Aorta Normal size aortic root and proximal ascending aorta. CONCLUSIONS 1. Severely impaired left ventricle systolic function with segmental wall motion abnormality 2. Severe pulmonary hypertension 3. Moderate to severe mitral and tricuspid regurgitation 4. Mild to moderate aortic regurgitation 5. A wire is noted in the right ventricle Previewed by: Dr. Ish Soto MD (Electronically Signed) Final Date: 08 June 2023 10:55
--- NOTE | 2023-06-08 12:24 | P.PN ---
Subjective Patient is seen in follow for acute kidney injury. Renal function better. Received a liter bolus of normal saline this morning. On low-dose Levophed. Hemoglobin stable at 8.3. Urine output 30-40 mL an hour. Vital signs are stable. General: No acute distress. HEENT: Head exam is unremarkable. LUNGS: No audible rhonchi or wheezes. HEART: Rate and Rhythm are regular. ABDOMEN: Soft, nontender. EXTREMITITES: No edema. Objective - Vital Signs Vital signs: Vital Signs Temp 98.4 F 06/08/23 08:00 Pulse 78 06/08/23 11:00 Resp 15 06/08/23 11:00 BP 100/49 06/08/23 11:00 Pulse Ox 96 06/08/23 11:00 FiO2 Intake & Output 06/07/23 06/08/23 06/08/23 18:59 06:59 18:59 Intake Total 620 849.803 109.055 Output Total 215 580 135 Balance 405 269.803 -25.945 Weight 64.4 kg 64.4 kg Intake: IV 620 840 60 0.9 Sodium Chloride 120 740 60 Piperacillin-Tazobactam 3 100 .375 gm In Sodium Chloride 0.9% 100 ml @ 25 mls/hr IVPB Q8HR [facility] Rx# :[id number] Sodium Chloride 0.9% 500 500 ml 500 ml @ 999 mls/hr IV .Q31M [facility] Rx#:[id number] Intake, IV Titration 9.803 49.055 Amount Norepinephrine 4 mg In 9.803 49.055 Sodium Chloride 0.9% 250 ml @ 0.03 MCG/KG/MIN 7. 144 mls/hr IV .Q24H [facility] Rx#:[id number] Output: Urine 215 580 135 Other: Voiding Method Indwelling Catheter Indwelling Catheter Indwelling Catheter - Labs CBC & Chem 7: 06/08/23 06:03 06/08/23 06:03 Labs: Abnormal Lab Results - Last 24 Hours (Table) 06/07/23 06/07/23 06/07/23 Range/Units 06:42 12:30 12:30 WBC (3.8-10.6) k/uL RBC (4.30-5.90) m/uL Hgb (13.0-17.5) gm/dL Hct (39.0-53.0) % MCV (80.0-100.0) fL MCH (25.0-35.0) pg Plt Count (150-450) k/uL Metamyelocytes # (Man) (0) k/uL Myelocytes # (Manual) (0) k/uL Promyelocytes # (Man) (0) k/uL Nucleated RBCs (0-0) /100 WBC Macrocytosis Retic Count 11.6 H (0.5-2.0) % Carbon Dioxide (22-30) mmol/L BUN (9-20) mg/dL Creatinine (0.66-1.25) mg/dL Glucose (74-99) mg/dL Iron 64 L (65-175) UG/DL TIBC 207 L (228-460) UG/DL Transferrin 148.0 L (204.0-354.0) mg/dL Ferritin 1982.0 H (22.0-322.0) ng/mL Lactate Dehydrogenase 442 H (120-246) U/L Vitamin B12 >3600.0 H (200.0-944.0) pg/mL Procalcitonin 3.76 H (0.02-0.09) ng/mL 06/08/23 06/08/23 Range/Units 06:03 06:03 WBC 13.1 H (3.8-10.6) k/uL RBC 2.03 L (4.30-5.90) m/uL Hgb 8.3 L (13.0-17.5) gm/dL Hct 26.2 L (39.0-53.0) % MCV 129.0 H (80.0-100.0) fL MCH 41.1 H (25.0-35.0) pg Plt Count 27 L D (150-450) k/uL Metamyelocytes # (Man) 0.66 H (0) k/uL Myelocytes # (Manual) 2.23 H (0) k/uL Promyelocytes # (Man) 0.26 H (0) k/uL Nucleated RBCs 5 H (0-0) /100 WBC Macrocytosis Marked A Retic Count (0.5-2.0) % Carbon Dioxide 21 L (22-30) mmol/L BUN 51 H (9-20) mg/dL Creatinine 1.41 H (0.66-1.25) mg/dL Glucose 119 H (74-99) mg/dL Iron (65-175) UG/DL TIBC (228-460) UG/DL Transferrin (204.0-354.0) mg/dL Ferritin (22.0-322.0) ng/mL Lactate Dehydrogenase (120-246) U/L Vitamin B12 (200.0-944.0) pg/mL Procalcitonin (0.02-0.09) ng/mL Assessment and Plan Plan: Assessment: 1. Acute kidney injury secondary to hemodynamic ATN. Creatinine 1.56 on admission and is 1.41 today. No hydronephrosis noted on CAT scan. 2. Septic shock secondary to UTI on Levophed and antibiotics. 3. Chronic systolic CHF with ejection fraction of 25-30% with moderate to severe mitral regurgitation, mild to moderate aortic regurgitation, moderate to severe tricuspid regurgitation. 4. History of myelodysplastic syndrome. Plan: Wean Levophed. Avoid nephrotoxins. Continue to monitor renal function and urine output. Check chest x-ray.
--- NOTE | 2023-06-08 15:33 | XR ---
EXAMINATION TYPE: XR chest 1V DATE OF EXAM: 06/08/2023 3:27 PM COMPARISON: Chest radiographs from 06/07/2023 TECHNIQUE: XR chest 1V Frontal view of the chest. CLINICAL INDICATION:Male, 83 years old with history of sob; FINDINGS: Lungs/Pleura: There is no evidence of pleural effusion, focal consolidation, or pneumothorax. Chroni c senescent parenchymal change. Pulmonary vascularity: Unremarkable. Heart/mediastinum: Cardiomediastinal silhouette is stable. Atherosclerotic calcifications are seen i n the aorta. Two lead cardiac conduction device overlying the left hemithorax with lead tips projecti ng over the right ventricle and right atrium. Musculoskeletal: No acute osseous pathology. Bilateral shoulder arthropathy. IMPRESSION: Chronic changes without evidence for acute process. No significant change from prior exam.
[2023-06-08] MEDS: SODIUM CHLORIDE 0.9% 500 ML 500 ML IV SCH (18:22)
[2023-06-08] MEDS ORDERED: HALOPERIDOL LACTATE 5 MG/ML 1 ML VIAL IVP ONE (21:04)
[2023-06-09] MEDS: PIPERACILLIN-TAZOBACTAM 3.375 GM in SODIUM CHLORIDE 0.9% 100 ML IVPB SCH ×4 (00:23→23:58)
--- NOTE | 2023-06-09 02:33 | PN ---
PROGRESS NOTE SUBJECTIVE: Mr. Perry is a gentleman with a history of multiple comorbid conditions in the form of myelodysplasia with a low platelet count and low hemoglobin. He has a cardiomyopathy with ICD persistent atrial fibrillation, rheumatoid arthritis. He came in with what seems to be possibly sepsis, however, workup is in progress. I am suggesting that we should do 2 sets of blood cultures today. He feels somewhat better than yesterday. He seems to be more comfortable. Vitals are stable. He is currently on multiple antibiotics as well as on a dose of Levophed to support his blood pressure. OBJECTIVE: VITAL SIGNS: Blood pressure today is 108, heart rate is in the 70s. CARDIAC: He is in sinus rhythm today, S1-S2 heard normally, short systolic murmur noted. LUNGS: Reveal diminished air entry bilaterally. ABDOMEN: Soft. EXTREMITIES: Lower extremities reveal diminished pulses. CENTRAL NERVOUS SYSTEM: No focal deficits. I would agree with the IV fluid that he is receiving and also septic workup including blood cultures. MMODL / IJN: [id number] /
[2023-06-09 06:14] LABS: African American GFR (CKD) 53 (>60 ml/min/1.73 sqM); Anion Gap 10 mmol/L; Blood Urea Nitrogen 59 mg/dL (9-20); Carbon Dioxide 22 mmol/L (22-30); Chloride 108 mmol/L (98-107); Glucose 130 mg/dL (74-99); Non-African American GFR(CKD) 46 (>60 ml/min/1.73 sqM); Potassium 3.9 mmol/L (3.5-5.1); Sodium 140 mmol/L (137-145)
--- NOTE | 2023-06-09 06:18 | P.PN ---
Subjective This is a pleasant 83 years old male with past medical history of heart failure with ejection fraction about 35% per at bedside. He is status post defibrillator. He has history of atrial flutter, he has history of stroke and a venous thrombosis. History of rheumatoid arthritis. History of sleep apnea on CPAP/BiPAP As per family and daughter at bedside patient was at baseline however in the morning patient was lethargic he was confused and he could not stand up to go to the bathroom as usual with the help of his because of that he was taken by EMS to [facility]. He was therefore 2 days and he was not improving and was transferred to this facility I spoke with Dr. Roberts from [facility] yesterday and he wants to be transferred because of anemia and they could not give him blood transfusion with special antibiotic screen also because of worsening clinical condition area they don't have consults and that facility as it was a critical access Hospital so it was transferred to [facility], this facility for higher level of care. As per Dr. Obrien patient was diagnosed with UTI and altered mental status when he came to ER also he had some slurred speech and there was suspicion of stroke the patient is not interacting. As per , patient hemoglobin was 9.7 on admission came down to 7.9 and they wanted him wound blood units. Creatinine went up from 1.2 and 21.6. Platelet count was 18,000 but patient with no evidence of bleeding. Computed tomography scan done at the other facility was negative as per Dr. Obrien. He had CT of the abdomen and pelvis with no acute event. However he was in anasarca but patient is not hypoxic. I discussed the case with the family at bedside and they want no code, no CPR, no intubation but her medication Patient blood pressure was on the low side 76/48. Morning and 18 was called for this reason. He received several boluses of normal saline about 250 mL each time. He is saturating 100% on room air. He is been afebrile showing leukocytosis of 12.9, hemoglobin 8.4 which is microcytic, low platelet count at 17,000. INR 1.1. Creatinine 1.5. Lactic acid slightly elevated at 2.9. Liver enzymes not elevated. [place]irubin [place] 2[place] [address]. Ammonia less than 9. CXR: No change from prior exam. No acute pulmonary pathology 06/08/2023 Patient remains in the ICU in critical condition after he was transverse yesterday requiring pressors for severe hypotension secondary to his infection with urinary tract. Currently his Zosyn and cultures are pending. Clinically is not improving is still severely encephalopathic. His drowsy and confused. Repeat echocardiogram showing worsening ejection fraction down to 25-30% proximal 35% last time. Also has evidence of anterior apical and anteroseptal akinesia SEVERE pulmonary hypertension with moderate to severe mitral regurgitation and tricuspid regurgitation, which asked to the complicating DIABETIC. Ultrasound of the gallbladder showing no acute cholecystitis WBC 13,000, hemoglobin 8.3, platelet count slightly improved at 27. Creatinine slightly up at 1.4. Active Medications Generic Name Dose Route Start Last Admin Trade Name Freq PRN Reason Stop Dose Admin Carbidopa/Levodopa 1 each 06/07/23 09:00 06/08/23 23:24 Carbidopa-Levodopa 25-100 Mg 1 Each Tab PO Not Given QID SHAHID Collagenase 1 applic 06/08/23 09:00 06/08/23 08:23 Collagenase 250 Unit/Gm Ointment 30 Gm Tube TOPICAL 1 applic DAILY SHAHID Administration Protocol Piperacillin Sod/Tazobactam 100 mls @ 25 mls/hr 06/07/23 16:00 06/09/23 00:23 Sod 3.375 gm/ Sodium Chloride IVPB 25 mls/hr Q8HR SHAHID Administration Protocol Sodium Chloride 500 mls @ 20 mls/hr 06/07/23 16:30 06/08/23 18:22 Saline 0.9% IV 20 mls/hr .Q24H SHAHID Administration Norepinephrine Bitartrate 4 mg 254 mls @ 7.144 mls/hr 06/07/23 20:00 06/08/23 10:27 / Sodium Chloride IV 0.02 mcg/kg/min .Q24H SHAHID 4.763 mls/hr Titration Protocol 0.03 MCG/KG/MIN Pantoprazole Sodium 40 mg 06/07/23 09:00 06/08/23 08:24 Pantoprazole 40 Mg/10 Ml Vial IVP 40 mg DAILY SHAHID Administration Objective - Vital Signs Vital signs: Vital Signs Temp 98.4 F 06/08/23 08:00 Pulse 78 06/08/23 11:00 Resp 15 06/08/23 11:00 BP 100/49 06/08/23 11:00 Pulse Ox 96 06/08/23 11:00 FiO2 Intake & Output 06/07/23 06/08/23 06/08/23 18:59 06:59 18:59 Intake Total 620 849.803 109.055 Output Total 215 580 135 Balance 405 269.803 -25.945 Weight 64.4 kg 64.4 kg Intake: IV 620 840 60 0.9 Sodium Chloride 120 740 60 Piperacillin-Tazobactam 3 100 .375 gm In Sodium Chloride 0.9% 100 ml @ 25 mls/hr IVPB Q8HR [facility] Rx# :[id number] Sodium Chloride 0.9% 500 500 ml 500 ml @ 999 mls/hr IV .Q31M [facility] Rx#:[id number] Intake, IV Titration 9.803 49.055 Amount Norepinephrine 4 mg In 9.803 49.055 Sodium Chloride 0.9% 250 ml @ 0.03 MCG/KG/MIN 7. 144 mls/hr IV .Q24H [facility] Rx#:[id number] Output: Urine 215 580 135 Other: Voiding Method Indwelling Catheter Indwelling Catheter Indwelling Catheter - Exam -GENERAL: The patient is confused, drowsy, mumbles, does not follow command. -HEENT: Pupils are round and equally reacting to light. EOMI. No scleral icterus. No conjunctival pallor. Normocephalic, atraumatic. No pharyngeal erythema. No thyromegaly. puffiness around the eyes CARDIOVASCULAR: S1 and S2 present. No murmurs, rubs, or gallops. PULMONARY: Chest is clear to auscultation, no wheezing , no crackles. ABDOMEN: Soft,nontender, nondistended, normoactive bowel sounds. No palpable organomegaly. MUSCULOSKELETAL: No joint swelling or deformity. EXTREMITIES: No cyanosis, clubbing, or pedal edema. Upper extremity swelling -NEUROLOGICAL: exam is limited by mentation changes. Patient is confused drowsy and cooperative. Cranial nerves are grossly intact. Differences in tone. Meningeal signs are absent SKIN: No rashes. no petechiae. - Labs CBC & Chem 7: 06/08/23 06:03 06/08/23 06:03 Labs: Abnormal Lab Results - Last 24 Hours (Table) 0706/07/23 06/07/23 Range/Units 06:42 12:30 12:30 WBC (3.8-10.6) k/uL RBC (4.30-5.90) m/uL Hgb (13.0-17.5) gm/dL Hct (39.0-53.0) % MCV (80.0-100.0) fL MCH (25.0-35.0) pg Plt Count (150-450) k/uL Metamyelocytes # (Man) (0) k/uL Myelocytes # (Manual) (0) k/uL Promyelocytes # (Man) (0) k/uL Nucleated RBCs (0-0) /100 WBC Macrocytosis Retic Count 11.6 H (0.5-2.0) % Carbon Dioxide (22-30) mmol/L BUN (9-20) mg/dL Creatinine (0.66-1.25) mg/dL Glucose (74-99) mg/dL Iron 64 L (65-175) UG/DL TIBC 207 L (228-460) UG/DL Transferrin 148.0 L (204.0-354.0) mg/dL Ferritin 1982.0 H (22.0-322.0) ng/mL Lactate Dehydrogenase 442 H (120-246) U/L Vitamin B12 >3600.0 H (200.0-944.0) pg/mL Procalcitonin 3.76 H (0.02-0.09) ng/mL 06/08/23 06/08/23 Range/Units 06:03 06:03 WBC 13.1 H (3.8-10.6) k/uL RBC 2.03 L (4.30-5.90) m/uL Hgb 8.3 L (13.0-17.5) gm/dL Hct 26.2 L (39.0-53.0) % MCV 129.0 H (80.0-100.0) fL MCH 41.1 H (25.0-35.0) pg Plt Count 27 L D (150-450) k/uL Metamyelocytes # (Man) 0.66 H (0) k/uL Myelocytes # (Manual) 2.23 H (0) k/uL Promyelocytes # (Man) 0.26 H (0) k/uL Nucleated RBCs 5 H (0-0) /100 WBC Macrocytosis Marked A Retic Count (0.5-2.0) % Carbon Dioxide 21 L (22-30) mmol/L BUN 51 H (9-20) mg/dL Creatinine 1.41 H (0.66-1.25) mg/dL Glucose 119 H (74-99) mg/dL Iron (65-175) UG/DL TIBC (228-460) UG/DL Transferrin (204.0-354.0) mg/dL Ferritin (22.0-322.0) ng/mL Lactate Dehydrogenase (120-246) U/L Vitamin B12 (200.0-944.0) pg/mL Procalcitonin (0.02-0.09) ng/mL Assessment and Plan Assessment: Septic shock secondary to acute urinary tract infection requiring pressors on admission Severe acute urinary tract infection Altered mental status, severe. The metabolic/toxic encephalopathy. Peripheral edema and fluid overload Acute on chronic CHF with low ejection fraction about 35% per family history . Repeat echo showing worsening EF 25-30% with akinesia of the anterior and apical/septal wall SEVERE pulmonary hypertension with moderate to severe mitral regurgitation and tricuspid regurgitation Mildly elevated lactic acid Severe thrombocytopenia History of myelodysplastic syndrome history of sleep apnea History of rheumatoid arthritis Hyperlipidemia History of sick sinus syndrome status post pacemaker area Parkinson disease No comment Plan: Continue with pressor support pulmonary/critical care team Continue with Zosyn Several consulting us on the case included cardiology, pulmonary/critical care team, nephrology, infectious disease team Avoid aspirin and blood thinner given his severe thrombocytopenia Neuro check Hematology/oncology consult Labs and medication were reviewed.. Continue same treatment. Continue with symptomatic treatment. Resume home medication. Monitor labs and vitals. DVT and GI prophylaxis. Further recommendations as per clinical course of the patient DVT prophylaxis: no Subcutaneous heparin, for severe thrombocytopenia. Continue with mechanical GI Prophylaxis: Ppi Prognosis is guarded
[2023-06-09 06:20] LABS: HCT 24.4 % (39.0-53.0); HGB 7.4 gm/dL (13.0-17.5); Hypochromasia Marked; MCH 39.7 pg (25.0-35.0); MCHC 30.5 g/dL (31.0-37.0); MCV 129.9 fL (80.0-100.0); Macrocytosis Marked; Mean Platelet Volume 15.5; RBC 1.88 m/uL (4.30-5.90); RDW 15.3 % (11.5-15.5)
[2023-06-09 06:35] LABS: Platelet Count 19 k/uL (150-450)
[2023-06-09] MEDS: POTASSIUM CHLORIDE 10 MEQ in WATER FOR INJECTION 1 100ML.BAG IVPB SCH ×2 (06:36→09:14)
--- NOTE | 2023-06-09 07:05 | P.PN ---
Subjective Progress Note Date: 06/08/23 Principal diagnosis: Sepsis and UTI Patient is a 83-year-old male with a past medical history significant for heart failure with EF of 35% atrial flutter sleep apnea rheumatoid arthritis patient initially presented to outside facility for the patient comes symptoms of lethargy and the patient was noticed to be mostly confused and weak could not stand up to go to the bathroom , patient was transferred to this facility for further workup did have a positive UA concerning for urinary source. On today's evaluation that is 06/08/2023, the patient remains to be afebrile, patient is breathing comfortably on 1 L nasal cannula oxygen patient is hemodynamically stable not a very good history no vomiting or diarrhea has been reported Objective - Vital Signs Vital signs: Vital Signs Temp 98.9 F 06/08/23 12:00 Pulse 92 06/08/23 12:15 Resp 19 06/08/23 12:15 BP 98/50 06/08/23 12:15 Pulse Ox 98 06/08/23 12:15 FiO2 Intake & Output 06/07/23 06/08/23 06/08/23 18:59 06:59 18:59 Intake Total 620 849.803 129.055 Output Total 215 580 175 Balance 405 269.803 -45.945 Weight 64.4 kg 64.4 kg Intake: IV 620 840 80 0.9 Sodium Chloride 120 740 80 Piperacillin-Tazobactam 3 100 .375 gm In Sodium Chloride 0.9% 100 ml @ 25 mls/hr IVPB Q8HR [facility] Rx# :[id number] Sodium Chloride 0.9% 500 500 ml 500 ml @ 999 mls/hr IV .Q31M [facility] Rx#:[id number] Intake, IV Titration 9.803 49.055 Amount Norepinephrine 4 mg In 9.803 49.055 Sodium Chloride 0.9% 250 ml @ 0.03 MCG/KG/MIN 7. 144 mls/hr IV .Q24H [facility] Rx#:[id number] Output: Urine 215 580 175 Other: Voiding Method Indwelling Catheter Indwelling Catheter Indwelling Catheter - Exam GENERAL DESCRIPTION: An elderly male lying in bed in no distress RESPIRATORY SYSTEM: Unlabored breathing , decreased breath sounds at bases HEART: S1 S2 regular rate and rhythm , ABDOMEN: Soft , no tenderness Patient did have a stage II sacral pressure ulcer with no significant slough tissue or surrounding redness EXTREMITIES: No edema feet - Labs CBC & Chem 7: 06/09/23 05:10 06/09/23 05:10 Labs: Abnormal Lab Results - Last 24 Hours (Table) 06/07/23 06/07/23 06/07/23 Range/Units 06:42 12:30 12:30 WBC (3.8-10.6) k/uL RBC (4.30-5.90) m/uL Hgb (13.0-17.5) gm/dL Hct (39.0-53.0) % MCV (80.0-100.0) fL MCH (25.0-35.0) pg Plt Count (150-450) k/uL Metamyelocytes # (Man) (0) k/uL Myelocytes # (Manual) (0) k/uL Promyelocytes # (Man) (0) k/uL Nucleated RBCs (0-0) /100 WBC Macrocytosis Retic Count 11.6 H (0.5-2.0) % Carbon Dioxide (22-30) mmol/L BUN (9-20) mg/dL Creatinine (0.66-1.25) mg/dL Glucose (74-99) mg/dL Iron 64 L (65-175) UG/DL TIBC 207 L (228-460) UG/DL Transferrin 148.0 L (204.0-354.0) mg/dL Ferritin 1982.0 H (22.0-322.0) ng/mL Lactate Dehydrogenase 442 H (120-246) U/L Vitamin B12 >3600.0 H (200.0-944.0) pg/mL Procalcitonin 3.76 H (0.02-0.09) ng/mL 06/08/23 06/08/23 Range/Units 06:03 06:03 WBC 13.1 H (3.8-10.6) k/uL RBC 2.03 L (4.30-5.90) m/uL Hgb 8.3 L (13.0-17.5) gm/dL Hct 26.2 L (39.0-53.0) % MCV 129.0 H (80.0-100.0) fL MCH 41.1 H (25.0-35.0) pg Plt Count 27 L D (150-450) k/uL Metamyelocytes # (Man) 0.66 H (0) k/uL Myelocytes # (Manual) 2.23 H (0) k/uL Promyelocytes # (Man) 0.26 H (0) k/uL Nucleated RBCs 5 H (0-0) /100 WBC Macrocytosis Marked A Retic Count (0.5-2.0) % Carbon Dioxide 21 L (22-30) mmol/L BUN 51 H (9-20) mg/dL Creatinine 1.41 H (0.66-1.25) mg/dL Glucose 119 H (74-99) mg/dL Iron (65-175) UG/DL TIBC (228-460) UG/DL Transferrin (204.0-354.0) mg/dL Ferritin (22.0-322.0) ng/mL Lactate Dehydrogenase (120-246) U/L Vitamin B12 (200.0-944.0) pg/mL Procalcitonin (0.02-0.09) ng/mL Assessment and Plan (1) Stage II pressure ulcer of sacral region Current Visit: Yes Status: Acute Code(s): L89.152 - PRESSURE ULCER OF SACRAL REGION, STAGE 2 SNOMED Code(s): 88518514363668 (2) UTI (urinary tract infection) Current Visit: Yes Status: Acute Priority: High Code(s): N39.0 - URINARY TRACT INFECTION, SITE NOT SPECIFIED SNOMED Code(s): 28214109 Plan: 1patient presented hospital with sepsis in this patient with low-grade fever tachycardia hypertension significantly positive UA likely concerning for UTI of enteric gram-negative pathogen apparently has not responded to the Rocephin at the outside facility concerning for possible resistant pathogen clinic and are behaving as pneumonia and no tenderness to the right upper quadrant area clinically doubt cholecystitis 2-patient seemed to showing some clinical improvement the patient white count has normalized. to continue Zosyn while waiting for the culture to finalize 3- patient did have a stage II a pressure ulcer withslough tissue no surrounding redness currently being treated with Hydrofera Blue dressing can be switched over to Aquacel silver if not available keep the area dry and off the pressure discussed with the nursing staff Dictation was produced using [employer] dictation software. please excuse any grammatical, word or spelling errors. Time with Patient: Less than 30
[2023-06-09] MEDS: NOREPINEPHRINE 4 MG in SODIUM CHLORIDE 0.9% 250 ML IV SCH (09:08)
[2023-06-09] MEDS: CARBIDOPA-LEVODOPA 25-100 MG 1 EACH TAB PO SCH ×4 (09:09→21:28)
[2023-06-09] MEDS: PANTOPRAZOLE 40 MG/10 ML VIAL IVP SCH (09:15)
[2023-06-09] MEDS: COLLAGENASE 250 UNIT/GM OINTMENT 30 GM TUBE TOPICAL SCH (09:15)
--- NOTE | 2023-06-09 09:26 | P.PN ---
Subjective Progress Note Date: 06/09/23 Principal diagnosis: Sepsis, mental status changes. This is an 83-year-old white male with history of multiple medical problems including cardiomyopathy and LV dysfunction with ejection fraction of 35%. Chronic atrial fibrillation/flutter, history of CVA and deep vein thrombosis, history of rheumatoid arthritis, and history of myelodysplastic syndrome. Patient was admitted to [facility] in January with multiple medical issues, and he was in the hospital for about 3 weeks. Patient will eventually discharged home with home physical therapy/rehabilitation. According to the he does have history of dementia and Parkinson's disease and he does have chronic weakness, but his weakness in the last few days has been much worse. Patient was taken to [facility], and he was found to be anemic, thrombocytopenic, WBC count 12.9 hemoglobin 8.4 and platelets 17,000. Patient was also noted to have worsening renal status with creatinine of 1.56, chest x-ray suggestive of congestive heart failure, he has bilateral pleural effusions, he also has what seems to be a urinary tract infection with pyuria and bacteriuria noted in the urinalysis. CT of abdomen and pelvis showed mostly retained contrast within both kidneys suggestive of acute tubular necrosis, he was noted to have anasarca and bilateral pleural effusions suggestive of congestive heart failure/volume overload. Prior to coming to [facility], patient was seen at [facility] and supposedly he was therefore 2 days, and they were having difficulty with platelets transfusion mostly because of antibodies, hence arrangements were made to transfer the patient to [facility]. Patient had low marginal blood pressure. Looking at his blood pressure his mean has been ranging anywhere between 59 up to 66 since admission, he has very poor urine output, and he looks extremely frail, weak, and chronically ill. Hence I recommended transferring the patient to the ICU for close monitoring. Although I did discuss the CODE STATUS with the and daughter at bedside before transferring the patient to the ICU and clearly the patient had previously expressed wishes to have no CPR, no defibrillation, and no intubation/mechanical ventilation. Clearly his CODE STATUS is DO NOT RESUSCITATE I have suggested evaluation by different consultants including hematology for his myelodysplastic syndrome and transfusions of platelets I will also recommended cardiology to see the patient on consultation, nephrology and infectious disease. Overall prognostic picture seems to be extremely poor Progress note dated 06/08/2023. This is a 83-year-old male who was transferred down from an outside hospital. Patient has a history of multiple medical problems. He was transferred because of mental status changes, hypotension, and urinary tract infection. The patient is seen today in room 267, ICU. The patient's on room air. He is getting IV Zosyn. He is getting saline at KVO, and also norepinephrine at 3 mcg/m. The patient is a no code with instructions. I've asked the nurses to give him some additional fluids, to see if we can wean him off the norepinephrine. White count 13.1, hemoglobin 8.3, hematocrit 26.2, with a platelet count of 27,000. Sodium is 137, potassium 4.5, chlorides 105, CO2 21, BUN 51, creatinine 1.41. The patient's pro-calcitonin level is 3.76. Urine is suggestive of a urinary tract infection. The patient is currently on Zosyn. Progress note dated 06/09/2023. 83-year-old male transferred down from an outside hospital. The patient is seen today in room 267. The patient is on 1 L of oxygen by nasal cannula. He is getting saline at KVO, and norepinephrine which is running at 0.02 mcg/kg/m, which is roughly 1.2 mcg/m. The patient is a no code, with instructions. He's not to be intubated, or defibrillated. White count 5.7, hemoglobin 7.4, hematocrit 24.4, and platelet count is pending. Sodium 140, potassium 3.9, chlo rides 108, CO2 22, BUN 59, creatinine 1.42. Chest x-ray shows chronic changes, without evidence for acute process. There is no change from the prior chest x- ray. Objective - Vital Signs Vital signs: Vital Signs Temp 98.9 F 06/09/23 04:00 Pulse 93 06/09/23 07:00 Resp 15 06/09/23 07:00 BP 96/51 06/09/23 07:00 Pulse Ox 100 06/09/23 07:00 FiO2 Intake & Output 06/08/23 06/09/23 06/09/23 18:59 06:59 18:59 Intake Total 299.055 510 Output Total 385 255 Balance -85.945 255 Weight 64.4 kg 60 kg Intake: IV 250 510 0.9 Sodium Chloride 200 260 Piperacillin-Tazobactam 3 50 150 .375 gm In Sodium Chloride 0.9% 100 ml @ 25 mls/hr IVPB Q8HR [facility] Rx# :[id number] Potassium Chloride 10 meq 100 In Water For Injection 1 100ml.bag @ 100 mls/hr IVPB Q1H [facility] Rx#: [id number] Intake, IV Titration 49.055 Amount Norepinephrine 4 mg In 49.055 Sodium Chloride 0.9% 250 ml @ 0.03 MCG/KG/MIN 7. 144 mls/hr IV .Q24H [facility] Rx#:[id number] Output: Urine 385 255 Other: Voiding Method Indwelling Catheter Indwelling Catheter - Exam No acute distress, very lethargic and somnolent, and poorly responsive. HEENT examination is grossly unremarkable. Neck supple. Full range of motion. No adenopathy thyromegaly or neck vein distention. Cardiovascular examination reveals regular rhythm rate. S1-S2 normal. No S3 or S4. No discernible murmur noted. Heart sounds distant. Heart rate 93 bpm. Lungs reveal scattered bilateral inspiratory and expiratory rhonchi. No wheezes or crackles. Breath sounds are equal. Saturations are 100% on 1 L of oxygen. Abdomen soft without bowel sounds. No masses or tenderness. Extremities are intact. No cyanosis clubbing or edema. Skin is without rash or lesion. Multiple areas of ecchymoses noted. Neurologic examination is difficult to evaluate. - Labs CBC & Chem 7: 06/09/23 05:10 06/09/23 05:10 Labs: Abnormal Lab Results - Last 24 Hours (Table) 06/09/23 06/09/23 Range/Units 05:10 05:10 RBC 1.88 L (4.30-5.90) m/uL Hgb 7.4 L (13.0-17.5) gm/dL Hct 24.4 L (39.0-53.0) % MCV 129.9 H (80.0-100.0) fL MCH 39.7 H (25.0-35.0) pg MCHC 30.5 L (31.0-37.0) g/dL Macrocytosis Marked A Chloride 108 H (98-107) mmol/L BUN 59 H (9-20) mg/dL Creatinine 1.42 H (0.66-1.25) mg/dL Glucose 130 H (74-99) mg/dL Calcium 8.0 L (8.4-10.2) mg/dL Assessment and Plan Assessment: Hypotension, likely secondary to urinary tract infection, with urosepsis. Rule out bacteremia. Acute on chronic systolic congestive heart failure. Myelodysplastic syndrome. Acute urinary tract infection. History of rheumatoid arthritis. Dementia and Parkinson's disease, rule out Lewy body dementia. History of sick sinus syndrome, status post pacemaker implantation. Hyperlipidemia. Small bilateral pleural effusion. Acute kidney injury. Plan: Plan dated 06/08/2023. Patient is seen in the intensive care unit. The patient continues on norepinephrine at 3 mcg/m, because of hypotension, secondary to urinary tract infection, with urosepsis, and possible bacteremia. The patient is on room air. Patient continues on Zosyn. Additional recommendations and suggestions are forthcoming. The patient's overall prognosis remains guarded. The patient is a no code, with instructions. Plan dated 06/09/2023. The patient is seen again in room 267. He continues on oxygen 1 L. The patient is getting norepinephrine at 1.2 mcg/m for blood pressure support, and saline at KVO. Labs, x-rays, and medications are all reviewed. The patient's overall prognosis is very guarded. We will continue to follow the patient and make recommendations along the way. The patient continues on Zosyn. The patient's previous pro-calcitonin level was 3.76 on June 07. Time with Patient: Greater than 30
--- NOTE | 2023-06-09 10:54 | P.PN ---
Subjective Patient is seen in follow for acute kidney injury. Renal function stable. On low-dose Levophed. Hemoglobin 7.4 today. Patient is lethargic. Urine output 20-30 mL an hour. Vital signs are stable. General: No acute distress. HEENT: Head exam is unremarkable. LUNGS: No audible rhonchi or wheezes. HEART: Rate and Rhythm are regular. ABDOMEN: Soft, nontender. EXTREMITITES: No edema. Objective - Vital Signs Vital signs: Vital Signs Temp 98.2 F 06/09/23 08:00 Pulse 85 06/09/23 10:00 Resp 21 06/09/23 10:00 BP 99/53 06/09/23 10:00 Pulse Ox 100 06/09/23 10:00 FiO2 Intake & Output 06/08/23 06/09/23 06/09/23 18:59 06:59 18:59 Intake Total 299.055 510 260 Output Total 385 255 60 Balance -85.945 255 200 Weight 64.4 kg 60 kg Intake: IV 250 510 260 0.9 Sodium Chloride 200 260 60 Piperacillin-Tazobactam 3 50 150 100 .375 gm In Sodium Chloride 0.9% 100 ml @ 25 mls/hr IVPB Q8HR [facility] Rx# :[id number] Potassium Chloride 10 meq 100 100 In Water For Injection 1 100ml.bag @ 100 mls/hr IVPB Q1H [facility] Rx#: [id number] Intake, IV Titration 49.055 Amount Norepinephrine 4 mg In 49.055 Sodium Chloride 0.9% 250 ml @ 0.03 MCG/KG/MIN 7. 144 mls/hr IV .Q24H [facility] Rx#:[id number] Output: Urine 385 255 60 Other: Voiding Method Indwelling Catheter Indwelling Catheter Indwelling Catheter - Labs CBC & Chem 7: 06/09/23 05:10 06/09/23 05:10 Labs: Abnormal Lab Results - Last 24 Hours (Table) 06/09/23 06/09/23 Range/Units 05:10 05:10 RBC 1.88 L (4.30-5.90) m/uL Hgb 7.4 L (13.0-17.5) gm/dL Hct 24.4 L (39.0-53.0) % MCV 129.9 H (80.0-100.0) fL MCH 39.7 H (25.0-35.0) pg MCHC 30.5 L (31.0-37.0) g/dL Macrocytosis Marked A Chloride 108 H (98-107) mmol/L BUN 59 H (9-20) mg/dL Creatinine 1.42 H (0.66-1.25) mg/dL Glucose 130 H (74-99) mg/dL Calcium 8.0 L (8.4-10.2) mg/dL Assessment and Plan Plan: Assessment: 1. Acute kidney injury secondary to hemodynamic ATN. Creatinine 1.56 on admission and is stable at 1.42 today. No hydronephrosis noted on CAT scan. 2. Septic shock secondary to UTI on Levophed and antibiotics. 3. Chronic systolic CHF with ejection fraction of 25-30% with moderate to severe mitral regurgitation, mild to moderate aortic regurgitation, moderate to severe tricuspid regurgitation. 4. History of myelodysplastic syndrome. Plan: Wean Levophed. Avoid nephrotoxins. Continue to monitor renal function and urine output. Continue to hold off on IV fluids and diuretics. Appears euvolemic at this time. No evidence of fluid overload noted on chest x-ray. Check AM cortisol level.
[2023-06-09 11:16] LABS: Myelocytes % 14 %; Promyelocytes % 2 %
--- NOTE | 2023-06-09 11:19 | PN ---
PROGRESS NOTE SUBJECTIVE: Mr. Perry has a low ejection fraction ICD, paroxysmal atrial fibrillation, has also developed possible sepsis with hypotension. With IV fluids, he has improved. He also has myelodysplastic syndrome with a platelet count in the 27 range. Hemoglobin is also down. The patient clinically appears to be better, but he is not swallowing. Therefore, we are unable to give him any rate lowering agents or any medications for that matter orally. OBJECTIVE: HEART: S1, S2 heard normally. Distant heart sound. Short systolic murmur. LUNGS: Diminished air entry. ABDOMEN: Soft. EXTREMITIES: Lower extremities reveal diminished pulses. CENTRAL NERVOUS SYSTEM: Grossly no focal deficits. ASSESSMENT AND PLAN: Plan is to continue current medical regimen. No new suggestions. Prognosis remains guarded. MMODL / IJN: [id number] /
[2023-06-09 11:20] LABS: Band Neutrophils % 4 %; Metamyelocytes % 2 %; Monocytes # (M) 0.05 k/uL (0-1.0); Myelocytes # (M) 0.73 k/uL (0); Neutrophils % (M) 56 %; Nucleated Red Blood Cells 2 /100 WBC (0-0); Total Cells Counted 200; WBC 5.2 k/uL (3.8-10.6)
[2023-06-09 11:23] LABS: Toxic Granulation Present
[2023-06-09 11:24] LABS: Toxic Vacuolation Present
--- NOTE | 2023-06-09 13:43 | P.PN ---
Subjective Progress Note Date: 06/09/23 Principal diagnosis: Sepsis and UTI Patient is a 83-year-old male with a past medical history significant for heart failure with EF of 35% atrial flutter sleep apnea rheumatoid arthritis patient initially presented to outside facility for the patient comes symptoms of lethargy and the patient was noticed to be mostly confused and weak could not stand up to go to the bathroom , patient was transferred to this facility for further workup did have a positive UA concerning for urinary source. On today's evaluation that is 06/09/2023, the patient continues to be afebrile, patient is breathing comfortably on 1 L nasal cannula oxygen patient is hemodynamically stable patient is comfortable trying to communicate but unable to understand no vomiting or diarrhea has been reported Objective - Vital Signs Vital signs: Vital Signs Temp 98.2 F 06/09/23 08:00 Pulse 83 06/09/23 11:00 Resp 23 06/09/23 11:00 BP 94/46 06/09/23 11:00 Pulse Ox 100 06/09/23 11:00 FiO2 Intake & Output 06/08/23 06/09/23 06/09/23 18:59 06:59 18:59 Intake Total 299.055 510 280 Output Total 385 255 90 Balance -85.945 255 190 Weight 64.4 kg 60 kg Intake: IV 250 510 280 0.9 Sodium Chloride 200 260 80 Piperacillin-Tazobactam 3 50 150 100 .375 gm In Sodium Chloride 0.9% 100 ml @ 25 mls/hr IVPB Q8HR [facility] Rx# :[id number] Potassium Chloride 10 meq 100 100 In Water For Injection 1 100ml.bag @ 100 mls/hr IVPB Q1H [facility] Rx#: [id number] Intake, IV Titration 49.055 Amount Norepinephrine 4 mg In 49.055 Sodium Chloride 0.9% 250 ml @ 0.03 MCG/KG/MIN 7. 144 mls/hr IV .Q24H [facility] Rx#:[id number] Output: Urine 385 255 90 Other: Voiding Method Indwelling Catheter Indwelling Catheter Indwelling Catheter - Exam GENERAL DESCRIPTION: An elderly male lying in bed in no distress RESPIRATORY SYSTEM: Unlabored breathing , decreased breath sounds at bases HEART: S1 S2 regular rate and rhythm , ABDOMEN: Soft , no tenderness Patient did have a stage II sacral pressure ulcer with no significant slough ti ssue or surrounding redness EXTREMITIES: No edema feet - Labs CBC & Chem 7: 06/09/23 05:10 06/09/23 05:10 Labs: Abnormal Lab Results - Last 24 Hours (Table) 06/09/23 06/09/23 Range/Units 05:10 05:10 RBC 1.88 L (4.30-5.90) m/uL Hgb 7.4 L (13.0-17.5) gm/dL Hct 24.4 L (39.0-53.0) % MCV 129.9 H (80.0-100.0) fL MCH 39.7 H (25.0-35.0) pg MCHC 30.5 L (31.0-37.0) g/dL Plt Count 19 L* (150-450) k/uL Metamyelocytes # (Man) 0.10 H (0) k/uL Myelocytes # (Manual) 0.73 H (0) k/uL Promyelocytes # (Man) 0.10 H (0) k/uL Nucleated RBCs 2 H (0-0) /100 WBC Macrocytosis Marked A Chloride 108 H (98-107) mmol/L BUN 59 H (9-20) mg/dL Creatinine 1.42 H (0.66-1.25) mg/dL Glucose 130 H (74-99) mg/dL Calcium 8.0 L (8.4-10.2) mg/dL Microbiology - Last 24 Hours (Table) 06/07/23 09:53 Urine Culture - Final Urine,Voided Assessment and Plan (1) Stage II pressure ulcer of sacral region Current Visit: Yes Status: Acute Code(s): L89.152 - PRESSURE ULCER OF SACRAL REGION, STAGE 2 SNOMED Code(s): 87587717721303 (2) UTI (urinary tract infection) Current Visit: Yes Status: Acute Priority: High Code(s): N39.0 - URINARY TRACT INFECTION, SITE NOT SPECIFIED SNOMED Code(s): 83061514 Plan: 1patient presented hospital with sepsis in this patient with low-grade fever tachycardia hypertension significantly positive UA likely concerning for UTI of enteric gram-negative pathogen apparently has not responded to the Rocephin at the outside facility concerning for possible resistant pathogen clinic and are behaving as pneumonia and no tenderness to the right upper quadrant area clinically doubt cholecystitis 2-patient did have a stage II a pressure ulcer withslough tissue no surrounding redness currently being treated with Hydrofera Blue dressing can be switched over to Aquacel silver if not available keep the area dry and off the pressure 3patient seemed to showing some clinical improvement the patient white count has normalized. Patient will continue Zosyn and monitor clinical course closely 3- Dictation was produced using [employer] dictation software. please excuse any gramm atical, word or spelling errors. Time with Patient: Less than 30
[2023-06-09] MEDS ORDERED: FUROSEMIDE 10 MG/ML 2 ML VIAL IV ONE (16:13)
[2023-06-09] MEDS: SODIUM CHLORIDE 0.9% 500 ML 500 ML IV SCH (16:18)
--- NOTE | 2023-06-09 23:00 | P.PN ---
Subjective This is a pleasant 83 years old male with past medical history of heart failure with ejection fraction about 35% per at bedside. He is status post defibrillator. He has history of atrial flutter, he has history of stroke and a venous thrombosis. History of rheumatoid arthritis. History of sleep apnea on CPAP/BiPAP As per family and daughter at bedside patient was at baseline however in the morning patient was lethargic he was confused and he could not stand up to go to the bathroom as usual with the help of his because of that he was taken by EMS to [facility]. He was therefore 2 days and he was not improving and was transferred to this facility I spoke with Dr. Roberts from [facility] yesterday and he wants to be transferred because of anemia and they could not give him blood transfusion with special antibiotic screen also because of worsening clinical condition area they don't have consults and that facility as it was a critical access Hospital so it was transferred to [facility], this facility for higher level of care. As per Dr. Obrien patient was diagnosed with UTI and altered mental status when he came to ER also he had some slurred speech and there was suspicion of stroke the patient is not interacting. As per , patient hemoglobin was 9.7 on admission came down to 7.9 and they wanted him wound blood units. Creatinine went up from 1.2 and 21.6. Platelet count was 18,000 but patient with no evidence of bleeding. Computed tomography scan done at the other facility was negative as per Dr. Obrien. He had CT of the abdomen and pelvis with no acute event. However he was in anasarca but patient is not hypoxic. I discussed the case with the family at bedside and they want no code, no CPR, no intubation but her medication Patient blood pressure was on the low side 76/48. Morning and 18 was called for this reason. He received several boluses of normal saline about 250 mL each time. He is saturating 100% on room air. He is been afebrile showing leukocytosis of 12.9, hemoglobin 8.4 which is microcytic, low platelet count at 17,000. INR 1.1. Creatinine 1.5. Lactic acid slightly elevated at 2.9. Liver enzymes not elevated. Bilirubin [place] 2[place] [address]. Ammonia less than 9. CXR: No change from prior exam. No acute pulmonary pathology 06/08/2023 Patient remains in the ICU in critical condition after he was transverse yesterday requiring pressors for severe hypotension secondary to his infection with urinary tract. Currently his Zosyn and cultures are pending. Clinically is not improving is still severely encephalopathic. His drowsy and confused. Repeat echocardiogram showing worsening ejection fraction down to 25-30% proximal 35% last time. Also has evidence of anterior apical and anteroseptal akinesia SEVERE pulmonary hypertension with moderate to severe mitral regurgitation and tricuspid regurgitation, which asked to the complicating DIABETIC. Ultrasound of the gallbladder showing no acute cholecystitis WBC 13,000, hemoglobin 8.3, platelet count slightly improved at 27. Creatinine slightly up at 1.4. 06/09/2023 Patient remains in critical(severely infected and he was agitated given his severe metabolic encephalopathy and septic shock which is suspected secondary to acute renal tract infection He shown some improvement on Zosyn with decrease the dose of the Levophed, currently at 0.02 g per KG per minute his WBCs back to reference range at 5.2. Hemoglobin and platelet counts are down again at 7.4 and 19 respectively. Creatinine is stable at 1.4. Patient with no IV fluids no diverticula Objective - Vital Signs Vital signs: Vital Signs Temp 98.2 F 06/09/23 08:00 Pulse 85 06/09/23 10:00 Resp 21 06/09/23 10:00 BP 99/53 06/09/23 10:00 Pulse Ox 100 06/09/23 10:00 FiO2 Intake & Output 06/08/23 06/09/23 06/09/23 18:59 06:59 18:59 Intake Total 299.055 510 260 Output Total 385 255 60 Balance -85.945 255 200 Weight 64.4 kg 60 kg Intake: IV 250 510 260 0.9 Sodium Chloride 200 260 60 Piperacillin-Tazobactam 3 50 150 100 .375 gm In Sodium Chloride 0.9% 100 ml @ 25 mls/hr IVPB Q8HR [facility] Rx# :[id number] Potassium Chloride 10 meq 100 100 In Water For Injection 1 100ml.bag @ 100 mls/hr IVPB Q1H [facility] Rx#: [id number] Intake, IV Titration 49.055 Amount Norepinephrine 4 mg In 49.055 Sodium Chloride 0.9% 250 ml @ 0.03 MCG/KG/MIN 7. 144 mls/hr IV .Q24H [facility] Rx#:[id number] Output: Urine 385 255 60 Other: Voiding Method Indwelling Catheter Indwelling Catheter Indwelling Catheter - Exam -GENERAL: The patient is confused, drowsy, mumbles, does not follow command. -HEENT: Pupils are round and equally reacting to light. EOMI. No scleral icterus. No conjunctival pallor. Normocephalic, atraumatic. No pharyngeal erythema. No thyromegaly. puffiness around the eyes CARDIOVASCULAR: S1 and S2 present. No murmurs, rubs, or gallops. PULMONARY: Chest is clear to auscultation, no wheezing , no crackles. ABDOMEN: Soft,nontender, nondistended, normoactive bowel sounds. No palpable organomegaly. MUSCULOSKELETAL: No joint swelling or deformity. EXTREMITIES: No cyanosis, clubbing, or pedal edema. Upper extremity swelling -NEUROLOGICAL: exam is limited by mentation changes. Patient is confused drowsy and cooperative. Cranial nerves are grossly intact. Differences in tone. Meningeal signs are absent SKIN: No rashes. no petechiae. - Labs CBC & Chem 7: 06/09/23 05:10 06/09/23 05:10 Labs: Abnormal Lab Results - Last 24 Hours (Table) 06/09/23 06/09/23 Range/Units 05:10 05:10 RBC 1.88 L (4.30-5.90) m/uL Hgb 7.4 L (13.0-17.5) gm/dL Hct 24.4 L (39.0-53.0) % MCV 129.9 H (80.0-100.0) fL MCH 39.7 H (25.0-35.0) pg MCHC 30.5 L (31.0-37.0) g/dL Macrocytosis Marked A Chloride 108 H (98-107) mmol/L BUN 59 H (9-20) mg/dL Creatinine 1.42 H (0.66-1.25) mg/dL Glucose 130 H (74-99) mg/dL Calcium 8.0 L (8.4-10.2) mg/dL Assessment and Plan Assessment: Septic shock secondary to acute urinary tract infection requiring pressors on admission Severe acute urinary tract infection Altered mental status, severe. The metabolic/toxic encephalopathy. Peripheral edema and fluid overload Acute on chronic CHF with low ejection fraction about 35% per family history . Repeat echo showing worsening EF 25-30% with akinesia of the anterior and apical/septal wall SEVERE pulmonary hypertension with moderate to severe mitral regurgitation and tricuspid regurgitation Mildly elevated lactic acid Severe thrombocytopenia History of myelodysplastic syndrome history of sleep apnea History of rheumatoid arthritis Hyperlipidemia History of sick sinus syndrome status post pacemaker area Parkinson disease No comment Plan: Continue with pressor support pulmonary/critical care team Continue with Zosyn Several consulting us on the case included cardiology, pulmonary/critical care team, nephrology, infectious disease team Avoid aspirin and blood thinner given his severe thrombocytopenia Neuro check Hematology/oncology consult Labs and medication were reviewed.. Continue same treatment. Continue with symptomatic treatment. Resume home medication. Monitor labs and vitals. DVT and GI prophylaxis. Further recommendations as per clinical course of the patient DVT prophylaxis: no Subcutaneous heparin, for severe thrombocytopenia. Continue with mechanical GI Prophylaxis: Ppi Prognosis is guarded
[2023-06-10 05:01] LABS: Methylmalonic Acid 0.4 umol/L (<0.40)
[2023-06-10] MEDS: NOREPINEPHRINE 4 MG in SODIUM CHLORIDE 0.9% 250 ML IV SCH (07:02)
[2023-06-10 08:09] LABS: HGB 8.1 gm/dL (13.0-17.5); Hypochromasia Marked; MCH 40.4 pg (25.0-35.0); MCHC 31.2 g/dL (31.0-37.0); MCV 129.6 fL (80.0-100.0); Macrocytosis Marked; Mean Platelet Volume 16.6
[2023-06-10 08:16] LABS: African American GFR (CKD) 45 (>60 ml/min/1.73 sqM); Anion Gap 15 mmol/L; Blood Urea Nitrogen 70 mg/dL (9-20); Carbon Dioxide 18 mmol/L (22-30); Chloride 112 mmol/L (98-107); Glucose 138 mg/dL (74-99); Non-African American GFR(CKD) 39 (>60 ml/min/1.73 sqM); Sodium 145 mmol/L (137-145)
[2023-06-10] MEDS: PANTOPRAZOLE 40 MG/10 ML VIAL IVP SCH (09:13)
[2023-06-10] MEDS: PIPERACILLIN-TAZOBACTAM 3.375 GM in SODIUM CHLORIDE 0.9% 100 ML IVPB SCH ×2 (09:13→17:17)
[2023-06-10] MEDS: CARBIDOPA-LEVODOPA 25-100 MG 1 EACH TAB PO SCH ×3 (09:14→17:17)
[2023-06-10] MEDS: COLLAGENASE 250 UNIT/GM OINTMENT 30 GM TUBE TOPICAL SCH (09:14)
[2023-06-10 10:46] LABS: Band Neutrophils % 6 %; Metamyelocytes % 2 %; Myelocytes % 23 %; Neutrophils % (M) 45 %; Nucleated Red Blood Cells 16 /100 WBC (0-0); Promyelocytes % 2 %; Total Cells Counted 200
[2023-06-10 10:47] LABS: Eosinophils # (M) 0.11 k/uL (0-0.7); Lymphocytes # (M) 1.17 k/uL (1.0-4.8); Metamyelocytes # (M) 0.11 k/uL (0); Myelocytes # (M) 1.22 k/uL (0); Promyelocytes # (M) 0.11 k/uL (0); WBC 5.3 k/uL (3.8-10.6)
[2023-06-10 10:48] LABS: Anisocytosis (M) Present; Poikilocytosis (M) Present; Polychromasia Present
[2023-06-10 10:50] LABS: Toxic Vacuolation Present
[2023-06-10 10:51] LABS: Platelet Count 25 k/uL (150-450)
[2023-06-10] MEDS ORDERED: FUROSEMIDE 10 MG/ML 4 ML VIAL IV STA (10:56)
--- NOTE | 2023-06-10 11:30 | PN ---
PROGRESS NOTE SUBJECTIVE: Mr. Perry has myelodysplastic syndrome. Platelet count is less than 20. No active bleeding. He is in sinus rhythm. He has multiple comorbid conditions. OBJECTIVE: VITAL SIGNS: Stable. HEART: S1, S2 heard normally. Short systolic murmur is audible. LUNGS: Reveal diminished air entry. ABDOMEN: Soft. LOWER EXTREMITIES: Revealed diminished pulses. CENTRAL NERVOUS SYSTEM: Normal. PLAN: Continue current management. The patient is unable to swallow. Cannot give any oral medications. Prognosis remains poor. No new suggestions. MMODL / IJN: [id number] /
--- NOTE | 2023-06-10 11:37 | P.PN ---
Subjective Progress Note Date: 06/10/23 Principal diagnosis: Sepsis, mental status changes. This is an 83-year-old white male with history of multiple medical problems including cardiomyopathy and LV dysfunction with ejection fraction of 35%. Chronic atrial fibrillation/flutter, history of CVA and deep vein thrombosis, history of rheumatoid arthritis, and history of myelodysplastic syndrome. Patient was admitted to [facility] in January with multiple medical issues, and he was in the hospital for about 3 weeks. Patient will eventually discharged home with home physical therapy/rehabilitation. According to the he does have history of dementia and Parkinson's disease and he does have chronic weakness, but his weakness in the last few days has been much worse. Patient was taken to [facility], and he was found to be anemic, thrombocytopenic, WBC count 12.9 hemoglobin 8.4 and platelets 17,000. Patient was also noted to have worsening renal status with creatinine of 1.56, chest x-ray suggestive of congestive heart failure, he has bilateral pleural effusions, he also has what seems to be a urinary tract infection with pyuria and bacteriuria noted in the urinalysis. CT of abdomen and pelvis showed mostly retained contrast within both kidneys suggestive of acute tubular necrosis, he was noted to have anasarca and bilateral pleural effusions suggestive of congestive heart failure/volume overload. Prior to coming to [facility], patient was seen at [facility] and supposedly he was therefore 2 days, and they were having difficulty with platelets transfusion mostly because of antibodies, hence arrangements were made to transfer the patient to [facility]. Patient had low marginal blood pressure. Looking at his blood pressure his mean has been ranging anywhere between 59 up to 66 since admission, he has very poor urine output, and he looks extremely frail, weak, and chronically ill. Hence I recommended transferring the patient to the ICU for close monitoring. Although I did discuss the CODE STATUS with the and daughter at bedside before transferring the patient to the ICU and clearly the patient had previously expressed wishes to have no CPR, no defibrillation, and no intubation/mechanical ventilation. Clearly his CODE STATUS is DO NOT RESUSCITATE I have suggested evaluation by different consultants including hematology for his myelodysplastic syndrome and transfusions of platelets I will also recommended cardiology to see the patient on consultation, nephrology and infectious disease. Overall prognostic picture seems to be extremely poor Progress note dated 06/08/2023. This is a 83-year-old male who was transferred down from an outside hospital. Patient has a history of multiple medical problems. He was transferred because of mental status changes, hypotension, and urinary tract infection. The patient is seen today in room 267, ICU. The patient's on room air. He is getting IV Zosyn. He is getting saline at KVO, and also norepinephrine at 3 mcg/m. The patient is a no code with instructions. I've asked the nurses to give him some additional fluids, to see if we can wean him off the norepinephrine. White count 13.1, hemoglobin 8.3, hematocrit 26.2, with a platelet count of 27,000. Sodium is 137, potassium 4.5, chlorides 105, CO2 21, BUN 51, creatinine 1.41. The patient's pro-calcitonin level is 3.76. Urine is suggestive of a urinary tract infection. The patient is currently on Zosyn. Progress note dated 06/09/2023. 83-year-old male transferred down from an outside hospital. The patient is seen today in room 267. The patient is on 1 L of oxygen by nasal cannula. He is getting saline at KVO, and norepinephrine which is running at 0.02 mcg/kg/m, which is roughly 1.2 mcg/m. The patient is a no code, with instructions. He's not to be intubated, or defibrillated. White count 5.7, hemoglobin 7.4, hematocrit 24.4, and platelet count is pending. Sodium 140, potassium 3.9, chlo rides 108, CO2 22, BUN 59, creatinine 1.42. Chest x-ray shows chronic changes, without evidence for acute process. There is no change from the prior chest x- ray. Progress note dated 06/10/2023. 83-year-old male transferred from an outside hospital. The patient is seen today in room 267. The patient continues on between room air, and 1 L of oxygen nasal cannula. In addition, the patient remains on norepinephrine at 0.02 mcg/kg/m, and saline at 20 mL an hour. The patient also continues on Zosyn. White count 5.3, hemoglobin 8.1, hematocrit 26, and platelet count 25,000. Sodium 145, potassium 4, chlorides 112, CO2 18, anion gap 15, BUN 70, creatinine 1.62. No recent chest x-ray. Objective - Vital Signs Vital signs: Vital Signs Temp 98.4 F 06/10/23 08:00 Pulse 94 06/10/23 11:00 Resp 16 06/10/23 11:00 BP 102/56 06/10/23 11:00 Pulse Ox 99 06/10/23 11:00 FiO2 Intake & Output 06/09/23 06/10/23 06/10/23 18:59 06:59 18:59 Intake Total 440 495.142 100 Output Total 530 535 160 Balance -90 -39.858 -60 Intake: IV 440 300 100 0.9 Sodium Chloride 240 200 100 Piperacillin-Tazobactam 3 100 100 .375 gm In Sodium Chloride 0.9% 100 ml @ 25 mls/hr IVPB Q8HR [facility] Rx# :[id number] Potassium Chloride 10 meq 100 In Water For Injection 1 100ml.bag @ 100 mls/hr IVPB Q1H [facility] Rx#: [id number] Intake, IV Titration 195.142 Amount Norepinephrine 4 mg In 195.142 Sodium Chloride 0.9% 250 ml @ 0.03 MCG/KG/MIN 7. 144 mls/hr IV .Q24H [facility] Rx#:[id number] Output: Urine 530 535 160 Other: Voiding Method Indwelling Catheter Indwelling Catheter Indwelling Catheter # Bowel Movements 1 - Exam No acute distress, very lethargic and somnolent, and poorly responsive. Currently on room air. HEENT examination is grossly unremarkable. Neck supple. Full range of motion. No adenopathy thyromegaly or neck vein distention. Cardiovascular examination reveals regular rhythm rate. S1-S2 normal. No S3 or S4. No discernible murmur noted. Heart sounds distant. Heart rate 90 bpm. Lungs reveal scattered bilateral inspiratory and expiratory rhonchi. No wheezes or crackles. Breath sounds are equal. Saturations are 99% on room air. Abdomen soft without bowel sounds. No masses or tenderness. Extremities are intact. No cyanosis clubbing or edema. Skin is without rash or lesion. Multiple areas of ecchymoses noted. Neurologic examination is difficult to evaluate. - Labs CBC & Chem 7: 06/10/23 07:27 06/10/23 07:27 Labs: Abnormal Lab Results - Last 24 Hours (Table) 06/10/23 06/10/23 Range/Units 07:27 07:27 RBC 2.00 L (4.30-5.90) m/uL Hgb 8.1 L (13.0-17.5) gm/dL Hct 26.0 L (39.0-53.0) % MCV 129.6 H (80.0-100.0) fL MCH 40.4 H (25.0-35.0) pg RDW 16.0 H (11.5-15.5) % Plt Count 25 L (150-450) k/uL Metamyelocytes # (Man) 0.11 H (0) k/uL Myelocytes # (Manual) 1.22 H (0) k/uL Promyelocytes # (Man) 0.11 H (0) k/uL Nucleated RBCs 16 H (0-0) /100 WBC Macrocytosis Marked A Chloride 112 H (98-107) mmol/L Carbon Dioxide 18 L (22-30) mmol/L BUN 70 H (9-20) mg/dL Creatinine 1.62 H (0.66-1.25) mg/dL Glucose 138 H (74-99) mg/dL Calcium 8.0 L (8.4-10.2) mg/dL Microbiology - Last 24 Hours (Table) 06/07/23 12:30 Blood Culture - Preliminary Blood 06/07/23 09:53 Urine Culture - Final Urine,Voided Assessment and Plan Assessment: Hypotension, likely secondary to urinary tract infection, with urosepsis. Rule out bacteremia. Cultures thus far are negative. Acute on chronic systolic congestive heart failure. Myelodysplastic syndrome. Acute urinary tract infection. History of rheumatoid arthritis. Dementia and Parkinson's disease, rule out Lewy body dementia. History of sick sinus syndrome, status post pacemaker implantation. Hyperlipidemia. Small bilateral pleural effusion. Acute kidney injury. Plan: Plan dated 06/08/2023. Patient is seen in the intensive care unit. The patient continues on norepinephrine at 3 mcg/m, because of hypotension, secondary to urinary tract infection, with urosepsis, and possible bacteremia. The patient is on room air. Patient continues on Zosyn. Additional recommendations and suggestions are forthcoming. The patient's overall prognosis remains guarded. The patient is a no code, with instructions. Plan dated 06/09/2023. The patient is seen again in room 267. He continues on oxygen 1 L. The patient is getting norepinephrine at 1.2 mcg/m for blood pressure support, and saline at KVO. Labs, x-rays, and medications are all reviewed. The patient's overall prognosis is very guarded. We will continue to follow the patient and make recommendations along the way. The patient continues on Zosyn. The patient's previous pro-calcitonin level was 3.76 on June 07. Plan dated 06/10/2023. The patient is seen again in room 267. He continues on norepinephrine at 0.02 mcg/kg/m, for blood pressure support. Is getting saline at 20 mL an hour. He is between room air, and 1 L of oxygen. He continues on Zosyn. Cultures are negative. Labs, x-rays, and medications are reviewed. The patient's overall prognosis remains very guarded. We will continue to follow the patient and make recommendations along the way. Time with Patient: Greater than 30
--- NOTE | 2023-06-10 11:53 | P.PN ---
Subjective Patient is seen in follow for acute kidney injury. Renal function a little worse. On low-dose Levophed. Hemoglobin 8.1 today. Patient is lethargic. Urine output 30 mL an hour. Vital signs are stable. On Levophed. General: No acute distress. Lethargic. HEENT: Head exam is unremarkable. LUNGS: Scattered rhonchi. HEART: Rate and Rhythm are regular. ABDOMEN: Soft, nontender. EXTREMITITES: Upper extremity edema noted. Objective - Vital Signs Vital signs: Vital Signs Temp 98.4 F 06/10/23 08:00 Pulse 94 06/10/23 11:00 Resp 16 06/10/23 11:00 BP 102/56 06/10/23 11:00 Pulse Ox 99 06/10/23 11:00 FiO2 Intake & Output 06/09/23 06/10/23 06/10/23 18:59 06:59 18:59 Intake Total 440 495.142 100 Output Total 530 535 160 Balance -90 -39.858 -60 Intake: IV 440 300 100 0.9 Sodium Chloride 240 200 100 Piperacillin-Tazobactam 3 100 100 .375 gm In Sodium Chloride 0.9% 100 ml @ 25 mls/hr IVPB Q8HR [facility] Rx# :[id number] Potassium Chloride 10 meq 100 In Water For Injection 1 100ml.bag @ 100 mls/hr IVPB Q1H [facility] Rx#: [id number] Intake, IV Titration 195.142 Amount Norepinephrine 4 mg In 195.142 Sodium Chloride 0.9% 250 ml @ 0.03 MCG/KG/MIN 7. 144 mls/hr IV .Q24H [facility] Rx#:[id number] Output: Urine 530 535 160 Other: Voiding Method Indwelling Catheter Indwelling Catheter Indwelling Catheter # Bowel Movements 1 - Labs CBC & Chem 7: 06/10/23 07:27 06/10/23 07:27 Labs: Abnormal Lab Results - Last 24 Hours (Table) 06/10/23 06/10/23 Range/Units 07: 07:27 RBC 2.00 L (4.30-5.90) m/uL Hgb 8.1 L (13.0-17.5) gm/dL Hct 26.0 L (39.0-53.0) % MCV 129.6 H (80.0-100.0) fL MCH 40.4 H (25.0-35.0) pg RDW 16.0 H (11.5-15.5) % Plt Count 25 L (150-450) k/uL Metamyelocytes # (Man) 0.11 H (0) k/uL Myelocytes # (Manual) 1.22 H (0) k/uL Promyelocytes # (Man) 0.11 H (0) k/uL Nucleated RBCs 16 H (0-0) /100 WBC Macrocytosis Marked A Chloride 112 H (98-107) mmol/L Carbon Dioxide 18 L (22-30) mmol/L BUN 70 H (9-20) mg/dL Creatinine 1.62 H (0.66-1.25) mg/dL Glucose 138 H (74-99) mg/dL Calcium 8.0 L (8.4-10.2) mg/dL Microbiology - Last 24 Hours (Table) 06/07/23 12:30 Blood Culture - Preliminary Blood 06/07/23 09:53 Urine Culture - Final Urine,Voided Assessment and Plan Plan: Assessment: 1. Acute kidney injury secondary to hemodynamic ATN. Creatinine 1.62 today. Follow-up No hydronephrosis noted on CAT scan. 2. Septic shock secondary to UTI on Levophed and antibiotics. 3. Chronic systolic CHF with ejection fraction of 25-30% with moderate to severe mitral regurgitation, mild to moderate aortic regurgitation, moderate to severe tricuspid regurgitation. 4. History of myelodysplastic syndrome. 5. Edema. Plan: Wean Levophed. Lasix 40 mg IV once today. Avoid nephrotoxins. Continue to monitor renal function and urine output. Follow-up AM cortisol level.
[2023-06-10] MEDS ORDERED: DARBEPOETIN ALFA 40 MCG/0.4 ML SYRINGE SQ SCH (12:00)
[2023-06-10] MEDS: DEXTROSE 5% IN WATER 1,000 ML IV SCH (17:18)
[2023-06-11] MEDS: CARBIDOPA-LEVODOPA 25-100 MG 1 EACH TAB PO SCH ×5 (01:17→21:11)
[2023-06-11 06:47] LABS: HCT 24.3 % (39.0-53.0); HGB 7.4 gm/dL (13.0-17.5); Hypochromasia Marked; MCH 39.3 pg (25.0-35.0); MCHC 30.4 g/dL (31.0-37.0); MCV 129.3 fL (80.0-100.0); Macrocytosis Marked; Mean Platelet Volume 15.2; RBC 1.88 m/uL (4.30-5.90); RDW 15.9 % (11.5-15.5); WBC 5.8 k/uL (3.8-10.6)
[2023-06-11 07:01] LABS: African American GFR (CKD) 36 (>60 ml/min/1.73 sqM); Anion Gap 12 mmol/L; Blood Urea Nitrogen 77 mg/dL (9-20); Calcium 7.9 mg/dL (8.4-10.2); Carbon Dioxide 20 mmol/L (22-30); Chloride 112 mmol/L (98-107); Glucose 157 mg/dL (74-99); Non-African American GFR(CKD) 31 (>60 ml/min/1.73 sqM); Potassium 3.4 mmol/L (3.5-5.1); Sodium 144 mmol/L (137-145)
[2023-06-11 07:30] LABS: Platelet Count 28 k/uL (150-450)
[2023-06-11] MEDS: PANTOPRAZOLE 40 MG/10 ML VIAL IVP SCH (08:25)
[2023-06-11] MEDS: PIPERACILLIN-TAZOBACTAM 3.375 GM in SODIUM CHLORIDE 0.9% 100 ML IVPB SCH ×4 (08:26→17:15)
[2023-06-11] MEDS: NOREPINEPHRINE 4 MG in SODIUM CHLORIDE 0.9% 250 ML IV SCH ×2 (08:28→21:11)
--- NOTE | 2023-06-11 08:37 | XR ---
EXAMINATION TYPE: XR chest 1V portable DATE OF EXAM: 06/11/2023 Comparison: 06/08/2023 Clinical History: 83-year-old male CHF reassessment Findings: Left anterior chest wall ICD generator with right atrial and right ventricular leads. Heart borderlin e enlarged. Diffuse interstitial densities persist, similar to slightly increased from prior. No siza ble pleural effusion on the frontal view. Advanced degenerative changes of both shoulders. Impression: Borderline cardiomegaly. Correlate for similar to slightly increased pulmonary vascular congestion.
[2023-06-11] MEDS ORDERED: Potassium Replacement Protocol 1 EACH MISC MISCELLANE PRN (09:13)
[2023-06-11] MEDS: POTASSIUM CHLORIDE 10 MEQ in WATER FOR INJECTION 1 100ML.BAG IVPB SCH ×4 (09:49→14:04)
[2023-06-11] MEDS: DEXTROSE 5% IN WATER 1,000 ML IV SCH ×2 (09:56→14:04)
--- NOTE | 2023-06-11 10:49 | P.PN ---
Subjective Progress Note Date: 06/11/23 Principal diagnosis: Sepsis, mental status changes. This is an 83-year-old white male with history of multiple medical problems including cardiomyopathy and LV dysfunction with ejection fraction of 35%. Chronic atrial fibrillation/flutter, history of CVA and deep vein thrombosis, history of rheumatoid arthritis, and history of myelodysplastic syndrome. Patient was admitted to [facility] in January with multiple medical issues, and he was in the hospital for about 3 weeks. Patient will eventually discharged home with home physical therapy/rehabilitation. According to the he does have history of dementia and Parkinson's disease and he does have chronic weakness, but his weakness in the last few days has been much worse. Patient was taken to [facility], and he was found to be anemic, thrombocytopenic, WBC count 12.9 hemoglobin 8.4 and platelets 17,000. Patient was also noted to have worsening renal status with creatinine of 1.56, chest x-ray suggestive of congestive heart failure, he has bilateral pleural effusions, he also has what seems to be a urinary tract infection with pyuria and bacteriuria noted in the urinalysis. CT of abdomen and pelvis showed mostly retained contrast within both kidneys suggestive of acute tubular necrosis, he was noted to have anasarca and bilateral pleural effusions suggestive of congestive heart failure/volume overload. Prior to coming to [facility], patient was seen at [facility] and supposedly he was therefore 2 days, and they were having difficulty with platelets transfusion mostly because of antibodies, hence arrangements were made to transfer the patient to [facility]. Patient had low marginal blood pressure. Looking at his blood pressure his mean has been ranging anywhere between 59 up to 66 since admission, he has very poor urine output, and he looks extremely frail, weak, and chronically ill. Hence I recommended transferring the patient to the ICU for close monitoring. Although I did discuss the CODE STATUS with the and daughter at bedside before transferring the patient to the ICU and clearly the patient had previously expressed wishes to have no CPR, no defibrillation, and no intubation/mechanical ventilation. Clearly his CODE STATUS is DO NOT RESUSCITATE I have suggested evaluation by different consultants including hematology for his myelodysplastic syndrome and transfusions of platelets I will also recommended cardiology to see the patient on consultation, nephrology and infectious disease. Overall prognostic picture seems to be extremely poor Progress note dated 06/08/2023. This is a 83-year-old male who was transferred down from an outside hospital. Patient has a history of multiple medical problems. He was transferred because of mental status changes, hypotension, and urinary tract infection. The patient is seen today in room 267, ICU. The patient's on room air. He is getting IV Zosyn. He is getting saline at KVO, and also norepinephrine at 3 mcg/m. The patient is a no code with instructions. I've asked the nurses to give him some additional fluids, to see if we can wean him off the norepinephrine. White count 13.1, hemoglobin 8.3, hematocrit 26.2, with a platelet count of 27,000. Sodium is 137, potassium 4.5, chlorides 105, CO2 21, BUN 51, creatinine 1.41. The patient's pro-calcitonin level is 3.76. Urine is suggestive of a urinary tract infection. The patient is currently on Zosyn. Progress note dated 06/09/2023. 83-year-old male transferred down from an outside hospital. The patient is seen today in room 267. The patient is on 1 L of oxygen by nasal cannula. He is getting saline at KVO, and norepinephrine which is running at 0.02 mcg/kg/m, which is roughly 1.2 mcg/m. The patient is a no code, with instructions. He's not to be intubated, or defibrillated. White count 5.7, hemoglobin 7.4, hematocrit 24.4, and platelet count is pending. Sodium 140, potassium 3.9, chlo rides 108, CO2 22, BUN 59, creatinine 1.42. Chest x-ray shows chronic changes, without evidence for acute process. There is no change from the prior chest x- ray. Progress note dated 06/10/2023. 83-year-old male transferred from an outside hospital. The patient is seen today in room 267. The patient continues on between room air, and 1 L of oxygen nasal cannula. In addition, the patient remains on norepinephrine at 0.02 mcg/kg/m, and saline at 20 mL an hour. The patient also continues on Zosyn. White count 5.3, hemoglobin 8.1, hematocrit 26, and platelet count 25,000. Sodium 145, potassium 4, chlorides 112, CO2 18, anion gap 15, BUN 70, creatinine 1.62. No recent chest x-ray. Progress note dated 06/11/2023. 84-year-old male seen again in room 267. I had a very long conversation with the patient's , and daughters yesterday. The patient remains a no code, with instructions. Currently, he is doing about the same. He is currently on room air. He continues on norepinephrine at 0.01 mcg/kg/m. He is getting D5W at 50 mL an hour, because yesterday, we noted a worsening hypernatremia and hyperchloremia. White count 5.8, hemoglobin 7.4, hematocrit 24.3, and platelet count 28,000. Sodium 144, potassium 3.4, chlorides 112, CO2 20, anion gap 12, BUN 77, and creatinine 1.95. Culture data is currently negative. Reports from the outside hospital apparently were positive for E. coli, in the urine. Chest x-ray shows borderline cardiomegaly, and mild pulmonary vascular congestion. Objective - Vital Signs Vital signs: Vital Signs Temp 97.7 F 06/11/23 08:00 Pulse 88 06/11/23 09:00 Resp 17 06/11/23 09:00 BP 98/57 06/11/23 09:00 Pulse Ox 100 06/11/23 09:00 FiO2 30 06/11/23 00:00 Intake & Output 06/10/23 06/11/23 06/11/23 18:59 06:59 18:59 Intake Total 410 550 372.25 Output Total 675 450 115 Balance -265 100 257.25 Weight 60.1 kg 60.1 kg Intake: IV 410 550 250 0.9 Sodium Chloride 160 Dextrose 5% in Water 1, 250 550 150 000 ml @ 50 mls/hr IV . Q20H [facility] Rx#:[id number] Piperacillin-Tazobactam 3 100 .375 gm In Sodium Chloride 0.9% 100 ml @ 25 mls/hr IVPB Q8HR [facility] Rx# :[id number] Intake, IV Titration 122.25 Amount Norepinephrine 4 mg In 122.25 Sodium Chloride 0.9% 250 ml @ 0.03 MCG/KG/MIN 7. 144 mls/hr IV .Q24H [facility] Rx#:[id number] Output: Urine 675 450 115 Other: Voiding Method Indwelling Catheter Indwelling Catheter - Exam No acute distress, very lethargic and somnolent, and poorly responsive. Currently on room air. HEENT examination is grossly unremarkable. Neck supple. Full range of motion. No adenopathy thyromegaly or neck vein distention. Cardiovascular examination reveals regular rhythm rate. S1-S2 normal. No S3 or S4. No discernible murmur noted. Heart sounds distant. Heart rate 88 bpm. Lungs reveal scattered bilateral inspiratory and expiratory rhonchi. No wheezes or crackles. Breath sounds are equal. Saturations are 100% on room air. Abdomen soft without bowel sounds. No masses or tenderness. Extremities are intact. No cyanosis clubbing or edema. Skin is without rash or lesion. Multiple areas of ecchymoses noted. Neurologic examination is difficult to evaluate. - Labs CBC & Chem 7: 06/11/23 06:19 06/11/23 06:19 Labs: Abnormal Lab Results - Last 24 Hours (Table) 06/10/23 06/11/23 06/11/23 Range/Units 07: 06:19 06:19 RBC 1.88 L (4.30-5.90) m/uL Hgb 7.4 L (13.0-17.5) gm/dL Hct 24.3 L (39.0-53.0) % MCV 129.3 H (80.0-100.0) fL MCH 39.3 H (25.0-35.0) pg MCHC 30.4 L (31.0-37.0) g/dL RDW 15.9 H (11.5-15.5) % Plt Count 25 L 28 L (150-450) k/uL Metamyelocytes # (Man) 0.11 H (0) k/uL Myelocytes # (Manual) 1.22 H (0) k/uL Promyelocytes # (Man) 0.11 H (0) k/uL Nucleated RBCs 16 H (0-0) /100 WBC Macrocytosis Marked A Potassium 3.4 L (3.5-5.1) mmol/L Chloride 112 H (98-107) mmol/L Carbon Dioxide 20 L (22-30) mmol/L BUN 77 H (9-20) mg/dL Creatinine 1.95 H (0.66-1.25) mg/dL Glucose 157 H (74-99) mg/dL Calcium 7.9 L (8.4-10.2) mg/dL Microbiology - Last 24 Hours (Table) 06/07/23 12:30 Blood Culture - Preliminary Blood Assessment and Plan Assessment: Hypotension, likely secondary to urinary tract infection, with urosepsis. Rule out bacteremia. Cultures from the outside hospital were positive for Escherichia coli. Acute on chronic systolic congestive heart failure. Myelodysplastic syndrome. Acute urinary tract infection. History of rheumatoid arthritis. Dementia and Parkinson's disease, rule out Lewy body dementia. History of sick sinus syndrome, status post pacemaker implantation. Hyperlipidemia. Small bilateral pleural effusion. Acute kidney injury. Plan: Plan dated 06/08/2023. Patient is seen in the intensive care unit. The patient continues on norepinephrine at 3 mcg/m, because of hypotension, secondary to urinary tract infection, with urosepsis, and possible bacteremia. The patient is on room air. Patient continues on Zosyn. Additional recommendations and suggestions are forthcoming. The patient's overall prognosis remains guarded. The patient is a no code, with instructions. Plan dated 06/09/2023. The patient is seen again in room 267. He continues on oxygen 1 L. The patient is getting norepinephrine at 1.2 mcg/m for blood pressure support, and saline at KVO. Labs, x-rays, and medications are all reviewed. The patient's overall prognosis is very guarded. We will continue to follow the patient and make recommendations along the way. The patient continues on Zosyn. The patient's previous pro-calcitonin level was 3.76 on June 07. Plan dated 06/10/2023. The patient is seen again in room 267. He continues on norepinephrine at 0.02 mcg/kg/m, for blood pressure support. Is getting saline at 20 mL an hour. He is between room air, and 1 L of oxygen. He continues on Zosyn. Cultures are negative. Labs, x-rays, and medications are reviewed. The patient's overall prognosis remains very guarded. We will continue to follow the patient and make recommendations along the way. Plan dated 06/11/2023. The patient is seen today again in room 267. I had a long conversation with the patient's and 2 daughters yesterday. We confirm the fact that they wanted the patient to be a no code, no intubation, but medical management. Labs, x- rays, and medications are all reviewed. The patient remains on norepinephrine, at 0.01 mcg/kg/m. Outside cultures, were positive for Escherichia coli, in the urine. The patient remains on antibiotic in the form of Zosyn. We will continue to follow and make recommendations along the way. Prognosis is guarded. Time with Patient: Greater than 30
--- NOTE | 2023-06-11 12:02 | P.PN ---
Subjective Patient is seen in follow for acute kidney injury. Renal function worse from diuresis. Remains on Levophed. Hemoglobin 7.4 today. Patient is lethargic. Urine output ~30 mL an hour. Vital signs are stable. On Levophed. General: No acute distress. Lethargic. HEENT: Head exam is unremarkable. LUNGS: Scattered rhonchi. HEART: Rate and Rhythm are regular. ABDOMEN: Soft, nontender. EXTREMITITES: No edema. Objective - Vital Signs Vital signs: Vital Signs Temp 97.7 F 06/11/23 08:00 Pulse 88 06/11/23 09:00 Resp 17 06/11/23 09:00 BP 98/57 06/11/23 09:00 Pulse Ox 100 06/11/23 09:00 FiO2 30 06/11/23 00:00 Intake & Output 06/10/23 06/11/23 06/11/23 18:59 06:59 18:59 Intake Total 410 550 372.25 Output Total 675 450 115 Balance -265 100 257.25 Weight 60.1 kg 60.1 kg Intake: IV 410 550 250 0.9 Sodium Chloride 160 Dextrose 5% in Water 1, 250 550 150 000 ml @ 50 mls/hr IV . Q20H [facility] Rx#:[id number] Piperacillin-Tazobactam 3 100 .375 gm In Sodium Chloride 0.9% 100 ml @ 25 mls/hr IVPB Q8HR [facility] Rx# :[id number] Intake, IV Titration 122.25 Amount Norepinephrine 4 mg In 122.25 Sodium Chloride 0.9% 250 ml @ 0.03 MCG/KG/MIN 7. 144 mls/hr IV .Q24H [facility] Rx#:[id number] Output: Urine 675 450 115 Other: Voiding Method Indwelling Catheter Indwelling Catheter - Labs CBC & Chem 7: 06/11/23 06:19 06/11/23 06:19 Labs: Abnormal Lab Results - Last 24 Hours (Table) 06/11/23 06/11/23 Range/Units 06:19 06:19 RBC 1.88 L (4.30-5.90) m/uL Hgb 7.4 L (13.0-17.5) gm/dL Hct 24.3 L (39.0-53.0) % MCV 129.3 H (80.0-100.0) fL MCH 39.3 H (25.0-35.0) pg MCHC 30.4 L (31.0-37.0) g/dL RDW 15.9 H (11.5-15.5) % Plt Count 28 L (150-450) k/uL Macrocytosis Marked A Potassium 3.4 L (3.5-5.1) mmol/L Chloride 112 H (98-107) mmol/L Carbon Dioxide 20 L (22-30) mmol/L BUN 77 H (9-20) mg/dL Creatinine 1.95 H (0.66-1.25) mg/dL Glucose 157 H (74-99) mg/dL Calcium 7.9 L (8.4-10.2) mg/dL Microbiology - Last 24 Hours (Table) 06/07/23 12:30 Blood Culture - Preliminary Blood Assessment and Plan Plan: Assessment: 1. Acute kidney injury secondary to hemodynamic ATN. Renal function worse from diuresis. Creatinine 1.95 today. No hydronephrosis noted on CAT scan. 2. Septic shock secondary to UTI on Levophed and antibiotics. 3. Chronic systolic CHF with ejection fraction of 25-30% with moderate to severe mitral regurgitation, mild to moderate aortic regurgitation, moderate to severe tricuspid regurgitation. 4. History of myelodysplastic syndrome. 5. Edema. Status post IV Lasix yesterday. 6. Hypokalemia from poor intake and diuresis. 7. Metabolic acidosis secondary to acute kidney injury. 8. Anemia. Multifactorial. Iron replete. On Aranesp. Plan: Wean Levophed. Hold off on diuretics today. Avoid nephrotoxins. Continue to monitor renal function and urine output. Cortisol level not low. Potassium replaced. Check magnesium level as well.
--- NOTE | 2023-06-11 14:10 | PN ---
PROGRESS NOTE SUBJECTIVE: Mr. Perry continues to be confused. He has myelodysplastic syndrome. Platelet count is low. No active bleeding. He has ischemic cardiomyopathy with a low ejection fraction. He is unable to swallow medications. OBJECTIVE: VITAL SIGNS: Stable. He is only on a very small dose of Levophed. HEART: S1 and S2 heard normally. Short systolic murmur at the base. LUNGS: Reveal bilateral fair air entry. ABDOMEN: Soft. EXTREMITIES: Lower extremities reveal diminished pulses. CENTRAL NERVOUS SYSTEM: Limited exam, did not reveal focal deficits. Prognosis remains guarded. No new suggestions. MMODL / IJN: [id number] /
--- NOTE | 2023-06-11 14:13 | PN ---
PROGRESS NOTE DATE OF SERVICE: 06/11/2023 SUBJECTIVE: This is an 83-year-old gentleman, who was admitted with the possibility of sepsis. He has also had some confusion also. The patient is unable to take medication at this time. Speech pathology to evaluate for possible swallow evaluation. The patient is off vasopressors at this time. Blood pressure systolic is in the 90s. Currently, the patient is on broad spectrum IV antibiotics. Multiple consultants are following the patient. The creatinine is also being closely followed. The cultures are negative so far. The patient is monitored in ICU. PAST MEDICAL HISTORY: Reviewed. REVIEW OF SYSTEMS: Could not be taken. CURRENT MEDICATIONS: Reviewed include Zosyn. Rest of medication noted. PHYSICAL EXAMINATION: VITAL SIGNS: Pulse is 84, blood pressure 95/49, respirations 16. HEENT: Conjunctiva pale. NECK: No JVD. CARDIOVASCULAR: S1, S2. RESPIRATORY: A few scattered rhonchi. ABDOMEN: Soft. LEGS: No edema. NERVOUS SYSTEM: Weak. LABORATORY DATA: Reviewed. Hemoglobin 7.4, rest of the labs are reviewed. ASSESSMENT: 1. Acute urinary tract infection with sepsis, present on admission. 2. Hypotension, off vasopressors. 3. Acute on chronic kidney disease. 4. 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 5. Change in mental status, metabolic encephalopathy, multifactorial. 6. History of congestive heart failure. 7. History of deep vein thrombosis. 8. Multiple medical issues. RECOMMENDATIONS: Recommended to continue current management and symptomatic treatment. Otherwise, at this time, I recommend to follow the patient along with multiple consultants. Other than that, we will continue to monitor. Repeat labs. Guarded prognosis. Further recommendations to follow. See orders for further details. MMODL / IJN: [id number] /
[2023-06-11] MEDS ORDERED: INSULIN REGULAR 100 UNIT/ML VIAL (IV) IV ONE (20:18)
[2023-06-11] MEDS ORDERED: DEXTROSE 50% SYRINGE 50 ML IVP ONE (20:18)
[2023-06-11] MEDS ORDERED: CALCIUM GLUCONATE IN NACL 1 GM in SALINE 1 100ML.BAG IVPB ONE (20:18)
[2023-06-11] MEDS ORDERED: FUROSEMIDE 10 MG/ML 2 ML VIAL IV STA (20:19)
--- NOTE | 2023-06-11 22:42 | P.PN ---
Subjective Progress Note Date: 06/10/23 Principal diagnosis: Sepsis and UTI Patient is a 83-year-old male with a past medical history significant for heart failure with EF of 35% atrial flutter sleep apnea rheumatoid arthritis patient initially presented to outside facility for the patient comes symptoms of lethargy and the patient was noticed to be mostly confused and weak could not stand up to go to the bathroom , patient was transferred to this facility for further workup did have a positive UA concerning for urinary source. On today's evaluation that is 06/10/2023, the patient remains to be afebrile, patient is breathing comfortably on room air patient is hemodynamically stable patient is comfortable, the patient is not a very good historian no vomiting or diarrhea has been reported Objective - Vital Signs Vital signs: Vital Signs Temp 98.4 F 06/10/23 12:00 Pulse 95 06/10/23 12:15 Resp 25 H 06/10/23 12:15 BP 103/53 06/10/23 12:15 Pulse Ox 100 06/10/23 12:15 FiO2 Intake & Output 06/09/23 06/10/23 06/10/23 18:59 06:59 18:59 Intake Total 440 495.142 120 Output Total 530 535 225 Balance -90 -39.858 -105 Intake: IV 440 300 120 0.9 Sodium Chloride 240 200 120 Piperacillin-Tazobactam 3 100 100 .375 gm In Sodium Chloride 0.9% 100 ml @ 25 mls/hr IVPB Q8HR [facility] Rx# :[id number] Potassium Chloride 10 meq 100 In Water For Injection 1 100ml.bag @ 100 mls/hr IVPB Q1H [facility] Rx#: [id number] Intake, IV Titration 195.142 Amount Norepinephrine 4 mg In 195.142 Sodium Chloride 0.9% 250 ml @ 0.03 MCG/KG/MIN 7. 144 mls/hr IV .Q24H [facility] Rx#:[id number] Output: Urine 530 535 225 Other: Voiding Method Indwelling Catheter Indwelling Catheter Indwelling Catheter # Bowel Movements 1 - Exam GENERAL DESCRIPTION: An elderly male lying in bed in no distress RESPIRATORY SYSTEM: Unlabored breathing , decreased breath sounds at bases HEART: S1 S2 regular rate and rhythm , ABDOMEN: Soft , no tenderness Patient did have a stage II sacral pressure ulcer with no significant slough tissue or surrounding redness EXTREMITIES: No edema feet - Labs CBC & Chem 7: 06/11/23 06:19 06/11/23 17:16 Labs: Abnormal Lab Results - Last 24 Hours (Table) 06/10/23 06/10/23 Range/Units 07: 07:27 RBC 2.00 L (4.30-5.90) m/uL Hgb 8.1 L (13.0-17.5) gm/dL Hct 26.0 L (39.0-53.0) % MCV 129.6 H (80.0-100.0) fL MCH 40.4 H (25.0-35.0) pg RDW 16.0 H (11.5-15.5) % Plt Count 25 L (150-450) k/uL Metamyelocytes # (Man) 0.11 H (0) k/uL Myelocytes # (Manual) 1.22 H (0) k/uL Promyelocytes # (Man) 0.11 H (0) k/uL Nucleated RBCs 16 H (0-0) /100 WBC Macrocytosis Marked A Chloride 112 H (98-107) mmol/L Carbon Dioxide 18 L (22-30) mmol/L BUN 70 H (9-20) mg/dL Creatinine 1.62 H (0.66-1.25) mg/dL Glucose 138 H (74-99) mg/dL Calcium 8.0 L (8.4-10.2) mg/dL Microbiology - Last 24 Hours (Table) 06/07/23 12:30 Blood Culture - Preliminary Blood 06/07/23 09:53 Urine Culture - Final Urine,Voided Assessment and Plan (1) Stage II pressure ulcer of sacral region Current Visit: Yes Status: Acute Code(s): L89.152 - PRESSURE ULCER OF SACRAL REGION, STAGE 2 SNOMED Code(s): 18196625415454 (2) UTI (urinary tract infection) Current Visit: Yes Status: Acute Priority: High Code(s): N39.0 - URINARY TRACT INFECTION, SITE NOT SPECIFIED SNOMED Code(s): 77770125 Plan: 1patient presented hospital with sepsis in this patient with low-grade fever tachycardia hypertension significantly positive UA likely concerning for UTI of enteric gram-negative pathogen apparently has not responded to the Rocephin at the outside facility concerning for possible resistant pathogen clinic and are behaving as pneumonia and no tenderness to the right upper quadrant area clinically doubt cholecystitis 2-patient did have a stage II a pressure ulcer withslough tissue no surrounding redness currently being treated with Hydrofera Blue dressing can be switched over to Aquacel silver if not available keep the area dry and off the pressure 3patient urine culture done at the outside facility came back positive the E. coli that is sensitive to Zosyn 4-seemed to showing some clinical improvement the patient white count has normalized. Patient will continue Zosyn and monitor clinical course closely Dictation was produced using [employer] dictation software. please excuse any grammatical, word or spelling errors. Time with Patient: Less than 30
--- NOTE | 2023-06-11 22:43 | P.PN ---
Subjective Progress Note Date: 06/11/23 Principal diagnosis: Sepsis and UTI Patient is a 83-year-old male with a past medical history significant for heart failure with EF of 35% atrial flutter sleep apnea rheumatoid arthritis patient initially presented to outside facility for the patient comes symptoms of lethargy and the patient was noticed to be mostly confused and weak could not stand up to go to the bathroom , patient was transferred to this facility for further workup did have a positive UA concerning for urinary source. On today's evaluation that is 06/11/2023, the patient continues to be afebrile, patient is breathing comfortably, the patient remains to be lethargic and is admitted for an history no vomiting or diarrhea has been reported Objective - Vital Signs Vital signs: Vital Signs Temp 97.7 F 06/11/23 12:00 Pulse 78 06/11/23 12:30 Resp 26 H 06/11/23 12:30 BP 94/47 06/11/23 12:30 Pulse Ox 99 06/11/23 12:30 FiO2 30 06/11/23 00:00 Intake & Output 06/10/23 06/11/23 06/11/23 18:59 06:59 18:59 Intake Total 410 550 822.25 Output Total 675 450 145 Balance -265 100 677.25 Weight 60.1 kg 60.1 kg Intake: IV 410 550 700 0.9 Sodium Chloride 160 Dextrose 5% in Water 1, 250 550 300 000 ml @ 50 mls/hr IV . Q20H [facility] Rx#:[id number] Piperacillin-Tazobactam 3 100 .375 gm In Sodium Chloride 0.9% 100 ml @ 25 mls/hr IVPB Q8HR [facility] Rx# :[id number] Potassium Chloride 10 meq 300 In Water For Injection 1 100ml.bag @ 100 mls/hr IVPB Q1HR [facility] Rx#: [id number] Intake, IV Titration 122.25 Amount Norepinephrine 4 mg In 122.25 Sodium Chloride 0.9% 250 ml @ 0.03 MCG/KG/MIN 7. 144 mls/hr IV .Q24H [facility] Rx#:[id number] Output: Urine 675 450 145 Other: Voiding Method Indwelling Catheter Indwelling Catheter - Exam GENERAL DESCRIPTION: An elderly male lying in bed in no distress RESPIRATORY SYSTEM: Unlabored breathing , decreased breath sounds at bases HEART: S1 S2 regular rate and rhythm , ABDOMEN: Soft , no tenderness Patient did have a stage II sacral pressure ulcer with no significant slough tissue or surrounding redness EXTREMITIES: No edema feet - Labs CBC & Chem 7: 06/11/23 06:19 06/11/23 17:16 Labs: Abnormal Lab Results - Last 24 Hours (Table) 06/11/23 06/11/23 Range/Units 06:19 06:19 RBC 1.88 L (4.30-5.90) m/uL Hgb 7.4 L (13.0-17.5) gm/dL Hct 24.3 L (39.0-53.0) % MCV 129.3 H (80.0-100.0) fL MCH 39.3 H (25.0-35.0) pg MCHC 30.4 L (31.0-37.0) g/dL RDW 15.9 H (11.5-15.5) % Plt Count 28 L (150-450) k/uL Macrocytosis Marked A Potassium 3.4 L (3.5-5.1) mmol/L Chloride 112 H (98-107) mmol/L Carbon Dioxide 20 L (22-30) mmol/L BUN 77 H (9-20) mg/dL Creatinine 1.95 H (0.66-1.25) mg/dL Glucose 157 H (74-99) mg/dL Calcium 7.9 L (8.4-10.2) mg/dL Microbiology - Last 24 Hours (Table) 06/07/23 12:30 Blood Culture - Preliminary Blood Assessment and Plan (1) Stage II pressure ulcer of sacral region Current Visit: Yes Status: Acute Code(s): L89.152 - PRESSURE ULCER OF SACRAL REGION, STAGE 2 SNOMED Code(s): 94064914915855 (2) UTI (urinary tract infection) Current Visit: Yes Status: Acute Priority: High Code(s): N39.0 - URINARY TRACT INFECTION, SITE NOT SPECIFIED SNOMED Code(s): 34250854 Plan: 1patient presented hospital with sepsis in this patient with low-grade fever tachycardia hypertension significantly positive UA likely concerning for UTI of enteric gram-negative pathogen apparently has not responded to the Rocephin at the outside facility concerning for possible resistant pathogen clinic and are behaving as pneumonia and no tenderness to the right upper quadrant area clinically doubt cholecystitis 2-patient did have a stage II a pressure ulcer withslough tissue no surrounding redness currently being treated with Hydrofera Blue dressing can be switched over to Aquacel silver if not available keep the area dry and off the pressure 3patient urine culture done at the outside facility came back positive the E. c rachel that is sensitive to Zosyn 4-seemed white count has normalized and the culture done at this facility is so far negative. Patient will continue Zosyn and monitor clinical course closely Dictation was produced using [employer] dictation software. please excuse any grammatical, word or spelling errors. Time with Patient: Less than 30
[2023-06-12] MEDS: DEXTROSE 5% IN WATER 1,000 ML IV SCH (00:38)
[2023-06-12] MEDS: PIPERACILLIN-TAZOBACTAM 3.375 GM in SODIUM CHLORIDE 0.9% 100 ML IVPB SCH (00:39)
[2023-06-12] MEDS ORDERED: ATROPINE OPHTH SOLN 1% 5ML BTL SUBLINGUAL PRN (04:26)
[2023-06-12] MEDS ORDERED: MORPHINE SULFATE 4 MG/ML SYRINGE IV PRN (04:26)
[2023-06-12] MEDS ORDERED: SCOPOLAMINE 1 MG/72 HR PATCH TRANSDERM SCH (04:30)
[2023-06-12] MEDS ORDERED: MORPHINE SULFATE (100 MG/2 ML) 100 MG in SODIUM CHLORIDE 0.9% 100 ML IV SCH (04:30)
[2023-06-12 04:51] VITALS: PULSE 63; RESP 20
[2023-06-12 08:52] VITALS: BP 86/49
[2023-06-12 09:09] VITALS: BMI 19.9
--- NOTE | 2023-06-12 11:13 | P.PN ---
Subjective This is a pleasant 83 years old male with past medical history of heart failure with ejection fraction about 35% per at bedside. He is status post defibrillator. He has history of atrial flutter, he has history of stroke and a venous thrombosis. History of rheumatoid arthritis. History of sleep apnea on CPAP/BiPAP As per family and daughter at bedside patient was at baseline however in the morning patient was lethargic he was confused and he could not stand up to go to the bathroom as usual with the help of his because of that he was taken by EMS to [facility]. He was therefore 2 days and he was not improving and was transferred to this facility I spoke with Dr. Roberts from [facility] yesterday and he wants to be transferred because of anemia and they could not give him blood transfusion with special antibiotic screen also because of worsening clinical condition area they don't have consults and that facility as it was a critical access Hospital so it was transferred to [facility], this facility for higher level of care. As per Dr. Obrien patient was diagnosed with UTI and altered mental status when he came to ER also he had some slurred speech and there was suspicion of stroke the patient is not interacting. As per , patient hemoglobin was 9.7 on admission came down to 7.9 and they wanted him wound blood units. Creatinine went up from 1.2 and 21.6. Platelet count was 18,000 but patient with no evidence of bleeding. Computed tomography scan done at the other facility was negative as per Dr. Obrien. He had CT of the abdomen and pelvis with no acute event. However he was in anasarca but patient is not hypoxic. I discussed the case with the family at bedside and they want no code, no CPR, no intubation but her medication Patient blood pressure was on the low side 76/48. Morning and 18 was called for this reason. He received several boluses of normal saline about 250 mL each time. He is saturating 100% on room air. He is been afebrile showing leukocytosis of 12.9, hemoglobin 8.4 which is microcytic, low platelet count at 17,000. INR 1.1. Creatinine 1.5. Lactic acid slightly elevated at 2.9. Liver enzymes not elevated. Bilirubin [place] 2[place] [address]. Ammonia less than 9. CXR: No change from prior exam. No acute pulmonary pathology 06/08/2023 Patient remains in the ICU in critical condition after he was transverse yesterday requiring pressors for severe hypotension secondary to his infection with urinary tract. Currently his Zosyn and cultures are pending. Clinically is not improving is still severely encephalopathic. His drowsy and confused. Repeat echocardiogram showing worsening ejection fraction down to 25-30% proximal 35% last time. Also has evidence of anterior apical and anteroseptal akinesia SEVERE pulmonary hypertension with moderate to severe mitral regurgitation and tricuspid regurgitation, which asked to the complicating DIABETIC. Ultrasound of the gallbladder showing no acute cholecystitis WBC 13,000, hemoglobin 8.3, platelet count slightly improved at 27. Creatinine slightly up at 1.4. 06/09/2023 Patient remains in critical(severely infected and he was agitated given his severe metabolic encephalopathy and septic shock which is suspected secondary to acute renal tract infection He shown some improvement on Zosyn with decrease the dose of the Levophed, currently at 0.02 g per KG per minute his WBCs back to reference range at 5.2. Hemoglobin and platelet counts are down again at 7.4 and 19 respectively. Creatinine is stable at 1.4. Patient with no IV fluids no diverticula 06/10/2023 Patient remains in the ICU with no much improvement in his condition, he is severely weak, nonverbal noninteractive does not Indicate. Does not look in distress. He still requires wrestlers small dose. Continue with the same antibiotics with Zosyn Prognosis is guarded Objective - Vital Signs Vital signs: Vital Signs Temp 98.4 F 06/10/23 08:00 Pulse 85 06/10/23 10:15 Resp 26 H 06/10/23 10:15 BP 102/48 06/10/23 10:15 Pulse Ox 99 06/10/23 10:15 FiO2 Intake & Output 06/09/23 06/10/23 06/10/23 18:59 06:59 18:59 Intake Total 440 495.142 80 Output Total 530 535 130 Balance -90 -39.858 -50 Intake: IV 440 300 80 0.9 Sodium Chloride 240 200 80 Piperacillin-Tazobactam 3 100 100 .375 gm In Sodium Chloride 0.9% 100 ml @ 25 mls/hr IVPB Q8HR [facility] Rx# :[id number] Potassium Chloride 10 meq 100 In Water For Injection 1 100ml.bag @ 100 mls/hr IVPB Q1H [facility] Rx#: [id number] Intake, IV Titration 195.142 Amount Norepinephrine 4 mg In 195.142 Sodium Chloride 0.9% 250 ml @ 0.03 MCG/KG/MIN 7. 144 mls/hr IV .Q24H [facility] Rx#:[id number] Output: Urine 530 535 130 Other: Voiding Method Indwelling Catheter Indwelling Catheter Indwelling Catheter # Bowel Movements 1 - Exam -GENERAL: The patient is confused, drowsy, mumbles, does not follow command. -HEENT: Pupils are round and equally reacting to light. EOMI. No scleral icterus. No conjunctival pallor. Normocephalic, atraumatic. No pharyngeal erythema. No thyromegaly. puffiness around the eyes CARDIOVASCULAR: S1 and S2 present. No murmurs, rubs, or gallops. PULMONARY: Chest is clear to auscultation, no wheezing , no crackles. ABDOMEN: Soft,nontender, nondistended, normoactive bowel sounds. No palpable organomegaly. MUSCULOSKELETAL: No joint swelling or deformity. EXTREMITIES: No cyanosis, clubbing, or pedal edema. Upper extremity swelling -NEUROLOGICAL: exam is limited by mentation changes. Patient is confused drowsy and cooperative. Cranial nerves are grossly intact. Differences in tone. Meningeal signs are absent SKIN: No rashes. no petechiae. - Labs CBC & Chem 7: 06/11/23 06:19 06/11/23 17:16 Labs: Abnormal Lab Results - Last 24 Hours (Table) 06/09/23 06/10/23 06/10/23 Range/Units 05:10 07: 07:27 RBC 2.00 L (4.30-5.90) m/uL Hgb 8.1 L (13.0-17.5) gm/dL Hct 26.0 L (39.0-53.0) % MCV 129.6 H (80.0-100.0) fL MCH 40.4 H (25.0-35.0) pg RDW 16.0 H (11.5-15.5) % Plt Count 19 L* (150-450) k/uL Metamyelocytes # (Man) 0.10 H (0) k/uL Myelocytes # (Manual) 0.73 H (0) k/uL Promyelocytes # (Man) 0.10 H (0) k/uL Nucleated RBCs 2 H (0-0) /100 WBC Macrocytosis Marked A Chloride 112 H (98-107) mmol/L Carbon Dioxide 18 L (22-30) mmol/L BUN 70 H (9-20) mg/dL Creatinine 1.62 H (0.66-1.25) mg/dL Glucose 138 H (74-99) mg/dL Calcium 8.0 L (8.4-10.2) mg/dL Microbiology - Last 24 Hours (Table) 06/07/23 12:30 Blood Culture - Preliminary Blood 06/07/23 09:53 Urine Culture - Final Urine,Voided Assessment and Plan Assessment: Septic shock secondary to acute urinary tract infection requiring pressors on admission Severe acute urinary tract infection Altered mental status, severe. The metabolic/toxic encephalopathy. Peripheral edema and fluid overload Acute on chronic CHF with low ejection fraction about 35% per family history . Repeat echo showing worsening EF 25-30% with akinesia of the anterior and apical/septal wall SEVERE pulmonary hypertension with moderate to severe mitral regurgitation and tricuspid regurgitation Mildly elevated lactic acid Severe thrombocytopenia History of myelodysplastic syndrome history of sleep apnea History of rheumatoid arthritis Hyperlipidemia History of sick sinus syndrome status post pacemaker area Parkinson disease No comment Plan: Continue with pressor support pulmonary/critical care team Continue with Zosyn Several consulting us on the case included cardiology, pulmonary/critical care team, nephrology, infectious disease team Avoid aspirin and blood thinner given his severe thrombocytopenia Neuro check Hematology/oncology consult Labs and medication were reviewed.. Continue same treatment. Continue with symptomatic treatment. Resume home medication. Monitor labs and vitals. DVT and GI prophylaxis. Further recommendations as per clinical course of the patient DVT prophylaxis: no Subcutaneous heparin, for severe thrombocytopenia. Continue with mechanical GI Prophylaxis: Ppi Prognosis is guarded
--- NOTE | 2023-06-12 11:52 | P.PN ---
Subjective Progress Note Date: 06/12/23 This is an 83-year-old white male with history of multiple medical problems including cardiomyopathy and LV dysfunction with ejection fraction of 35%. Chronic atrial fibrillation/flutter, history of CVA and deep vein thrombosis, history of rheumatoid arthritis, and history of myelodysplastic syndrome. Nidhi chavez was admitted to [facility] in January with multiple medical issues, and he was in the hospital for about 3 weeks. Patient will eventually discharged home with home physical therapy/rehabilitation. According to the he does have history of dementia and Parkinson's disease and he does have chronic weakness, but his weakness in the last few days has been much worse. Patient was taken to [facility], and he was found to be anemic, thrombocytopenic, WBC count 12.9 hemoglobin 8.4 and platelets 17,000. Patient was also noted to have worsening renal status with creatinine of 1.56, chest x-ray suggestive of congestive heart failure, he has bilateral pleural effusions, he also has what seems to be a urinary tract infection with pyuria and bacteriuria noted in the urinalysis. CT of abdomen and pelvis showed mostly retained contrast within both kidneys suggestive of acute tubular necrosis, he was noted to have anasarca and bilateral pleural effusions suggestive of congestive heart failure/volume overload. Prior to coming to [facility], patient was seen at [facility] and supposedly he was therefore 2 days, and they were having difficulty with platelets transfusion mostly because of antibodies, hence arrangements were made to transfer the patient to [facility]. Patient had low marginal blood pressure. Looking at his blood pressure his mean has been ranging anywhere between 59 up to 66 since admission, he has very poor urine output, and he looks extremely frail, weak, and chronically ill. Hence I recommended transferring the patient to the ICU for close monitoring. Although I did discuss the CODE STATUS with the and daughter at bedside before transferring the patient to the ICU and clearly the patient had previously expressed wishes to have no CPR, no defibrillation, and no intubation/mechanical ventilation. Clearly his CODE STATUS is DO NOT RESUSCITATE I have suggested evaluation by different consultants including hematology for his myelodysplastic syndrome and transfusions of platelets I will also recommended cardiology to see the patient on consultation, nephrology and infectious disease. Overall pr ognostic picture seems to be extremely poor Progress note dated 06/08/2023. This is a 83-year-old male who was transferred down from an outside hospital. Patient has a history of multiple medical problems. He was transferred because of mental status changes, hypotension, and urinary tract infection. The patient is seen today in room 267, ICU. The patient's on room air. He is getting IV Zosyn. He is getting saline at KVO, and also norepinephrine at 3 mcg/m. The patient is a no code with instructions. I've asked the nurses to give him some additional fluids, to see if we can wean him off the norepinephrine. White count 13.1, hemoglobin 8.3, hematocrit 26.2, with a platelet count of 27,000. Sodium is 137, potassium 4.5, chlorides 105, CO2 21, BUN 51, creatinine 1.41. The patient's pro-calcitonin level is 3.76. Urine is suggestive of a urinary tract infection. The patient is currently on Zosyn. Progress note dated 06/09/2023. 83-year-old male transferred down from an outside hospital. The patient is seen today in room 267. The patient is on 1 L of oxygen by nasal cannula. He is getting saline at KVO, and norepinephrine which is running at 0.02 mcg/kg/m, which is roughly 1.2 mcg/m. The patient is a no code, with instructions. He's not to be intubated, or defibrillated. White count 5.7, hemoglobin 7.4, hematocrit 24.4, and platelet count is pending. Sodium 140, potassium 3.9, chlorides 108, CO2 22, BUN 59, creatinine 1.42. Chest x-ray shows chronic changes, without evidence for acute process. There is no change from the prior chest x-ray. Progress note dated 06/10/2023. 83-year-old male transferred from an outside hospital. The patient is seen today in room 267. The patient continues on between room air, and 1 L of oxygen nasal cannula. In addition, the patient remains on norepinephrine at 0.02 mcg/kg/m, and saline at 20 mL an hour. The patient also continues on Zosyn. White count 5.3, hemoglobin 8.1, hematocrit 26, and platelet count 25,000. Sodium 145, potassium 4, chlorides 112, CO2 18, anion gap 15, BUN 70, creatinine 1.62. No recent chest x-ray. Progress note dated 06/11/2023. 84-year-old male seen again in room 267. I had a very long conversation with the patient's , and daughters yesterday. The patient remains a no code, with instructions. Currently, he is doing about the same. He is currently on room air. He continues on norepinephrine at 0.01 mcg/kg/m. He is getting D5W at 50 mL an hour, because yesterday, we noted a worsening hypernatremia and hyperchloremia. White count 5.8, hemoglobin 7.4, hematocrit 24.3, and platelet count 28,000. Sodium 144, potassium 3.4, chlorides 112, CO2 20, anion gap 12, BUN 77, and creatinine 1.95. Culture data is currently negative. Reports from the outside hospital apparently were positive for E. coli, in the urine. Chest x-ray shows borderline cardiomegaly, and mild pulmonary vascular congestion. The patient is seen today 06/12/2023 in follow-up on the regular medical floor. He is currently resting fairly comfortably in bed. Arousable. Maintaining O2 saturations in the 90s on 2 L/m per nasal cannula. Blood and urine cultures revealed no growth. His family is decided on comfort care/hospice at approximately 4:30 this morning. Morphine drip was initiated and currently at 1 mg per hour. Objective - Vital Signs Vital signs: Vital Signs Temp 98.3 F 06/12/23 04:50 Pulse 63 06/12/23 08:05 Resp 20 06/12/23 04:50 BP 86/49 06/12/23 08:05 Pulse Ox 100 06/12/23 04:50 FiO2 30 06/11/23 00:00 Intake & Output 06/11/23 06/12/23 06/12/23 18:59 06:59 18:59 Intake Total 1447.25 775 Output Total 190 395 Balance 1257.25 380 Weight 61.2 kg 61.2 kg Intake: IV 1325 775 Dextrose 5% in Water 1, 350 000 ml @ 50 mls/hr IV . Q20H [facility]AH[facility] Rx#:[id number] Dextrose 5% in Water 1, 375 675 000 ml @ 75 mls/hr IV . [id number] [facility]AHID Rx#:[id number] Piperacillin-Tazobactam 3 200 100 .375 gm In Sodium Chloride 0.9% 100 ml @ 25 mls/hr IVPB Q8HR [facility] Rx# :[id number] Potassium Chloride 10 meq 400 In Water For Injection 1 100ml.bag @ 100 mls/hr IVPB Q1HR [facility]AHID Rx#: [id number] Intake, IV Titration 122.25 Amount Norepinephrine 4 mg In 122.25 Sodium Chloride 0.9% 250 ml @ 0.03 MCG/KG/MIN 7. 144 mls/hr IV .Q24H [facility]AHID Rx#:[id number] Output: Urine 190 395 Other: Voiding Method Indwelling Catheter Indwelling Catheter Indwelling Catheter - Exam GENERAL EXAM: Arousable, comfortable, frail 83-year-old male, on 2 L nasal cannula, resting in bed. HEAD: Normocephalic. EYES: Normal reaction of pupils, equal size. NOSE: Clear with pink turbinates. THROAT: No erythema or exudates. NECK: No masses, no JVD. CHEST: No chest wall deformity. LUNGS: Equal air entry with crackles in the bilateral bases. CVS: S1 and S2 normal with no audible murmur, regular rhythm. ABDOMEN: No hepatosplenomegaly, normal bowel sounds, no guarding or rigidity. SPINE: No scoliosis or deformity SKIN: No rashes CENTRAL NERVOUS SYSTEM: Sedated, tone is normal in all 4 extremities. EXTREMITIES: There is no peripheral edema. No clubbing, no cyanosis. Peripheral pulses are intact. - Labs CBC & Chem 7: 06/11/23 06:19 06/11/23 17:16 Labs: Abnormal Lab Results - Last 24 Hours (Table) 06/07/23 06/11/23 Range/Units 06:42 17:16 Potassium 6.6 H* (3.5-5.1) mmol/L Blood Bank Comment Sent to [facility] A Reference Lab Result See [facility] REF Reports A Microbiology - Last 24 Hours (Table) 06/07/23 12:30 Blood Culture - Preliminary Blood Assessment and Plan Assessment: Hypotension, likely secondary to urinary tract infection, with urosepsis. Rule out bacteremia. Cultures from the outside hospital were positive for Escherichia coli. Acute on chronic systolic congestive heart failure. Myelodysplastic syndrome. Acute urinary tract infection. History of rheumatoid arthritis. Dementia and Parkinson's disease, rule out Lewy body dementia. History of sick sinus syndrome, status post pacemaker implantation. Hyperlipidemia. Small bilateral pleural effusion. Acute kidney injury. Poor overall functional performance based on the above-mentioned multiple comorbidities Plan: The patient was seen and evaluated The patient's and family has decided on comfort care this morning Currently on a morphine drip, scopolamine patch Currently on 2 L nasal cannula We will sign off I have personally seen and examined the patient, performed the documentation and the assessment and plan as written. Number of minutes spent on the visit: 10.
[2023-06-12] MEDS ORDERED: MULTIVITAMINS, THERA 1 EACH TAB PO SCH (12:00)
[2023-06-12] MEDS ORDERED: FOLIC ACID 1 MG TAB PO SCH (12:00)
[2023-06-12] MEDS ORDERED: THIAMINE 100 MG TAB PO SCH (12:00)
--- NOTE | 2023-06-12 12:40 | DS ---
DISCHARGE SUMMARY FINAL DIAGNOSES: 1. Acute urinary tract infection with sepsis present on admission. 2. Hypotension, off vascular pressors. 3. Acute on chronic kidney disease. 4. 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 5. Acute metabolic encephalopathy. 6. History of CHF. 7. History of DVT. 8. Multiple medical issues. DISCHARGE DISPOSITION: The patient will be transferred [facility] at this time in stable condition. Guarded prognosis. HISTORY OF PRESENT ILLNESS: This is an 83-year-old gentleman with a past medical history of multiple medical problems, admitted with UTI sepsis. Patient was monitored in ICU, the patient not improved and family made decision for comfort measures and currently the patient will be transferred to [facility] under hospice and no code, no CPR, no vent. Once again, the prognosis was extremely guarded throughout the hospitalization. Please refer to the multiple consultations, staff notes, and progress notes for further information. MMODL / IJN: [id number] /
--- NOTE | 2023-06-12 13:01 | PN ---
PROGRESS NOTE DATE OF SERVICE: 06/12/2023 SUBJECTIVE: This 83-year-old gentleman was admitted with possible acute UTI, sepsis, and multiple other medical problems. The family has decided on comfort measures. The patient is unresponsive. Patient received some morphine. OBJECTIVE: VITAL SIGNS: Pulse is 83, blood pressure 86/49. CHEST: Few scattered rhonchi. CARDIOVASCULAR: S1, S2. NERVOUS SYSTEM: Unresponsive. LABORATORY DATA: Not available. ASSESSMENT: 1. Acute urinary tract infection with sepsis present on admission. 2. Hypotension, off vascular pressors. 3. Acute on chronic kidney disease. 4. 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 5. Change in mental status, metabolic encephalopathy, multifactorial. 6. History of CHF. 7. History of DVT. 8. Multiple medical issues. 9. No code, no CPR, No vent. 10.One comfort measures. RECOMMENDATIONS: Recommended to continue current medications, continue symptomatic treatment. Otherwise, continue with comfort measures and discharge planning for discharge per the field nurse case manager. Prognosis extremely guarded. Further recommendations to follow. MMODL / IJN: [id number] /
[2023-06-12] MEDS ORDERED: MORPHINE SULFATE 2 MG/ML SYRINGE IVP STA (13:13)
[2023-06-12 16:09] VITALS: TEMP 98.3
== END 2023-06-12 16:44 | disposition hospice, inpatient (51) | DRG 871 ==
LOC: 3SCARD 03:09 → 2SICU 11:36 → 5NMEDONC 06-12 04:27
PROVIDERS: ADMIT Internal Medicine; ATTEND Internal Medicine
PROC: 3E033XZ Introduction of Vasopressor into Peripheral Vein, Percutaneous Approach (ICD-10-PCS; principal; 2023-06-07)
DX: A41.51 Sepsis due to Escherichia coli [E. coli] (principal); G92.8 Other toxic encephalopathy; R65.21 Severe sepsis with septic shock; N17.0 Acute kidney failure with tubular necrosis; I50.23 Acute on chronic systolic (congestive) heart failure; N39.0 Urinary tract infection, site not specified; I48.92 Unspecified atrial flutter; I48.19 Other persistent atrial fibrillation; E87.0 Hyperosmolality and hypernatremia; E87.20 Acidosis, unspecified; D61.818 Other pancytopenia; E86.0 Dehydration; D69.59 Other secondary thrombocytopenia; E80.6 Other disorders of bilirubin metabolism; K76.1 Chronic passive congestion of liver; K44.9 Diaphragmatic hernia without obstruction or gangrene; Z66 Do not resuscitate; N18.9 Chronic kidney disease, unspecified; M06.9 Rheumatoid arthritis, unspecified; G20 Parkinson's disease; Z51.5 Encounter for palliative care; L89.152 Pressure ulcer of sacral region, stage 2; F02.80 Dementia in other diseases classified elsewhere, unspecified severity, without behavioral disturbance, psychotic disturbance, mood disturbance, and anxiety; M54.9 Dorsalgia, unspecified; E87.8 Other disorders of electrolyte and fluid balance, not elsewhere classified; K56.41 Fecal impaction; E87.6 Hypokalemia; E78.5 Hyperlipidemia, unspecified; D63.8 Anemia in other chronic diseases classified elsewhere; D46.Z Other myelodysplastic syndromes; K82.8 Other specified diseases of gallbladder; I27.20 Pulmonary hypertension, unspecified; I25.5 Ischemic cardiomyopathy; I25.10 Atherosclerotic heart disease of native coronary artery without angina pectoris; I08.3 Combined rheumatic disorders of mitral, aortic and tricuspid valves; Z86.718 Personal history of other venous thrombosis and embolism; Z95.810 Presence of automatic (implantable) cardiac defibrillator; Z87.891 Personal history of nicotine dependence; Z86.73 Personal history of transient ischemic attack (TIA), and cerebral infarction without residual deficits; Z85.46 Personal history of malignant neoplasm of prostate; Z79.899 Other long term (current) drug therapy; I25.2 Old myocardial infarction
CPT/HCPCS: 70450; 71045; 74176; 76705; 80048; 80053; 81001; 82140; 82272; 82525; 82533; 82607; 82728; 82746; 83010; 83540; 83550; 83605; 83615; 83735; 83880; 83921; 84132; 84145; 85025; 85027; 85045; 85610; 86850; 86870; 86880; 86900; 86901; 87040; 87086; 93306